=== PATIENT | male | born 1940 | race Caucasian/White ===

== ENCOUNTER 2017-07-29 12:25 | Observation (INO) ==
[2017-07-29] MEDS ORDERED: Ondansetron 4 MG/2 ML VIAL IVP PRN (12:43)
[2017-07-29] MEDS ORDERED: Lidocaine -MPF 1% 5 ML AMPUL INFILT ONE (12:51)
[2017-07-29] MEDS ORDERED: *HR* Morphine Soln 10 MG/5 ML UDC PO PRN (12:54)
[2017-07-29] MEDS ORDERED: *HR* LORazepam 2 MG/ML VIAL IVP PRN (12:57)
--- NOTE | 2017-07-29 13:04 | General Surg History&Physical ---
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 All questions were answered. Peg tube recently replaced and patient is currently leaking from gastrocutaneous fistula from previous site as well as current peg tube site. Strict NPO Place peg tube to reese bag continuous PICC line placement TPN therapy- arson investigator consulted for start and management (discharge planning) Total fluid rate will be TPN goal Social service consult- will need PICC and TPN until gastrocutaneous fistula closed down (plan for return to [place] with TPN in the upcoming days) Meds converted to IV and SQ Supportive care Check labs- CBC, CMP, Mg, Phos, Prealbumin (2) Severe protein-calorie malnutrition Current Visit: Yes Status: Acute The assessment and plan as outlined above was discussed with the patient and/or family members who expressed understanding and agreement. All questions were answered. Peg tube recently replaced and patient is currently leaking from gastrocutaneous fistula from previous site as well as current peg tube site. 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 All questions were answered. History of Present Illness Chief complaint: Gastrocutaneous fistula HPI: Mr. Phelps is a 77 year old male with a hx significant for head and neck cancer. He is NPO due to his previous surgeries and radiation treatments. He has a peg tube in place. It was replaced a few weeks ago by Dr. Grijalva due to persistent leaking. The patient returns to the office from [facility] ([place]) with complaints of persistent leaking from his previous peg tube site as well as his current peg tube site. It is not safe to perform further endoscopy at this time due to severe tracheal stenosis and changes from radiation therapy. We will plan to admit the patient to the hospital for further management with a more conservative approach. Please see Dr. Grijalva's History and Physical in [facility] for a complete evaluation for this patient. A Copy has been placed in the patient chart at the nurses station as well as in the patient's medical record folder. Past Med Surg Social Fam HX - Past Medical History Source: old records reviewed Medical history: arthritis, atrial fibrillation, cancer (head and neck cancer), COPD, coronary artery disease, hypertension, myocardial infarction, other Psychiatric history: no psych history - Past Surgical History Surgical History: orthopedic, other (left hip), pacemaker/AICD, other (Peg tube placement and subsequent replacement (07/03/17); head/neck surgery for cancer and subsequent radiation therapy) - Social History Smoking Status: Former smoker Smokeless Tobacco Status: No Alcohol use: heavy, recent Drug use: none Occupational status: disabled Current living situation: [facility] Activity Level: Wheelchair bound Medications and Allergies Aspirin 81 mg GTUBE Q48H 01/03/15 [History] Metoprolol [Lopressor] 12.5 mg GTUBE HS 01/03/15 [History] Levothyroxine [Synthroid] 150 mcg PO DAILY #30 tablet 09/17/16 [Rx] ALPRAZolam [Xanax 0.25 MG Tablet] 0.25 mg GTUBE BID #60 tablet 11/01/16 [Rx] HYDROcodone/Acet 5/325 mg [[place] 5-325 mg] 1 tab GTUBE Q4H PRN #120 tab [Rx] Acetaminophen [Tylenol] 500 mg GTUBE Q4H PRN 07/03/17 [History] HYDROcodone/Acet 5/325 mg [[place] 5-325 mg] 1 tab GTUBE BID 07/03/17 [History] MOM Conc [Milk of Magnesia Conc] 30 ml PO DAILY PRN 07/03/17 [History] Rivaroxaban [Xarelto] 20 mg GTUBE HS 07/03/17 [History] Metoclopramide [Reglan] 10 mg GTUBE Q6H PRN 07/29/17 [History] 3 Allergy/AdvReac Type Severity Reaction Status Date / Time No Known Allergies Allergy Verified 07/29/17 14:29 Review of Systems All systems PM: The remainder of the systems were reviewed and are negative Results - Labs 07/29/17 13:09 07/29/17 13:09 All other labs normal. - Attending Attestation For this encounter, I have reviewed the TAXONOMIST or PA documentation, treatment plan, and medical decision making; and I have had face to face time with this patient. <RudiReillyn T - Last Filed: 07/29/17 16:10> Date of Encounter: 07/29/17 History of Present Illness HPI: Mr. Phelps is a 77 year old male Review of Systems All systems PM: The remainder of the systems were reviewed and are negative General Surgery Exam Initial Vital Signs Temp Pulse Resp BP Pulse Ox 94.6 F L 104 15 139/79 94 07/29/17 12:43 07/29/17 12:43 07/29/17 12:43 07/29/17 12:43 07/29/17 12:43 Results - Labs 07/29/17 13:09 07/29/17 13:09 Abnormal lab results RBC 3.79 M/mcL (4.19-5.50) L 07/29/17 13:09 MCV 104.5 fL (83.0-100.0) H 07/29/17 13:09 MCH 34.0 pg (28.0-33.3) H 07/29/17 13:09 RDW 14.7 % (11.5-14.5) H 07/29/17 13:09 PT 12.4 Seconds (9.4-12.1) H 07/29/17 13:09 BUN 30 mg/dL (8-23) H 07/29/17 13:09 Creatinine 0.63 mg/dL (0.70-1.30) L 07/29/17 13:09 BUN/Creatinine Ratio 48 (6-26) H 07/29/17 13:09 Calculated Osmolality 302 (280-300) H 07/29/17 13:09 Total Bilirubin 1.1 mg/dL (0.3-1.0) H 07/29/17 13:09 Diabetes panel 07/29/17 Range/Units 13:09 Sodium 143 (136-145) mEq/L Potassium 4.4 (3.5-5.1) mEq/L Chloride 105 (98-107) mEq/L Carbon Dioxide 29 (23-29) mEq/L BUN 30 H (8-23) mg/dL Creatinine 0.63 L (0.70-1.30) mg/dL Glucose 89 (70-105) mg/dL Calcium 9.4 (8.6-10.3) mg/dL AST 22 (13-39) Units/L ALT 11 (7-52) Units/L Alkaline Phosphatase 84 (34-104) Units/L Albumin 4.1 (3.5-5.7) g/dL Calcium panel 07/29/17 Range/Units 13:09 Calcium 9.4 (8.6-10.3) mg/dL Phosphorus 3.6 (2.7-4.5) mg/dL Albumin 4.1 (3.5-5.7) g/dL Pituitary panel 07/29/17 Range/Units 13:09 Sodium 143 (136-145) mEq/L Potassium 4.4 (3.5-5.1) mEq/L Chloride 105 (98-107) mEq/L Carbon Dioxide 29 (23-29) mEq/L BUN 30 H (8-23) mg/dL Creatinine 0.63 L (0.70-1.30) mg/dL Glucose 89 (70-105) mg/dL Calcium 9.4 (8.6-10.3) mg/dL Adrenal panel 07/29/17 Range/Units 13:09 Sodium 143 (136-145) mEq/L Potassium 4.4 (3.5-5.1) mEq/L Chloride 105 (98-107) mEq/L Carbon Dioxide 29 (23-29) mEq/L BUN 30 H (8-23) mg/dL Creatinine 0.63 L (0.70-1.30) mg/dL Glucose 89 (70-105) mg/dL Calcium 9.4 (8.6-10.3) mg/dL Total Bilirubin 1.1 H (0.3-1.0) mg/dL AST 22 (13-39) Units/L ALT 11 (7-52) Units/L Alkaline Phosphatase 84 (34-104) Units/L Albumin 4.1 (3.5-5.7) g/dL All other labs normal. - Attending Attestation I have personally performed a face to face evaluation on this patient. I have reviewed and agree with the care plan. History and Exam by me shows: The patient was seen and evaluated in the outpatient clinic setting. We are simply unable to initiate PICC line and TPN as well as gastric drainage has a outpatient. He will be admitted for inpatient evaluation and management. Francois Grijalva MD FACS
[2017-07-29 13:20] LABS: Basophils % 0.3 %; Eosinophils % 0.4 %; Hematocrit 39.6 % (37.5-50.1); Hemoglobin 12.9 g/dL (12.9-16.9); Immature Granulocytes % 0.3 % (0-4); Lymphocytes # 0.6 K/mcL (0.6-4.6); Lymphocytes % 8.6 %; Mean Corpuscular HGB Conc 32.6 g/dL (31.6-35.5); Mean Corpuscular Volume 104.5 fL (83.0-100.0); Mean Platelet Volume 12.2 fL (9.4-12.4); Monocytes # 0.9 K/mcL (0.0-1.3); Monocytes % 12.2 %; Neutrophils # 5.4 K/mcL (1.6-8.9); Platelet Count 185 K/mcL (140-400); Red Blood Count 3.79 M/mcL (4.19-5.50); Red Cell Distribution Width 14.7 % (11.5-14.5); Segmented Neutrophils % 78.2 %
[2017-07-29 13:27] LABS: INR 1.1; Prothrombin Time 12.4 Seconds (9.4-12.1)
[2017-07-29 13:30] LABS: Activated Partial Thrombo Time 32.6 Seconds (26.0-36.0)
[2017-07-29 13:50] LABS: Alanine Aminotransferase 11 Units/L (7-52); Albumin 4.1 g/dL (3.5-5.7); Albumin/Globulin Ratio 1.3 (1.1-2.2); Alkaline Phosphatase 84 Units/L (34-104); Aspartate Amino Transferase 22 Units/L (13-39); BUN/Creatinine Ratio 48 (6-26); Bilirubin,Total 1.1 mg/dL (0.3-1.0); Blood Urea Nitrogen 30 mg/dL (8-23); Calcium 9.4 mg/dL (8.6-10.3); Carbon Dioxide 29 mEq/L (23-29); Chloride 105 mEq/L (98-107); Globulin 3.1 g/dL (2.4-3.5); Glucose 89 mg/dL (70-105); Magnesium 1.9 mg/dL (1.6-2.6); Osmolality,Calculated 302 (280-300); Phosphorous 3.6 mg/dL (2.7-4.5); Potassium 4.4 mEq/L (3.5-5.1); Sodium 143 mEq/L (136-145); Total Protein 7.2 g/dL (6.4-8.9); eGFR For African Americans > 60 (> 60); eGFR For Non-African Americans > 60 (> 60)
[2017-07-29] MEDS ORDERED: D10% in Water 500 ML IVC PRN (14:11)
[2017-07-29] MEDS ORDERED: Clinimix E 5%-15% SOLUTION 2,000 ML with MVI, adult with vitamin K 10 ML IVC SCH (17:00)
[2017-07-29] MEDS: *HR* Metoprolol 5 MG/5 ML VIAL IVP SCH (17:17)
[2017-07-29] MEDS: 0.9 % Sodium Chloride 1,000 ML IVC SCH (17:30)
[2017-07-30] MEDS: *HR* Metoprolol 5 MG/5 ML VIAL IVP SCH ×5 (00:17→23:51)
[2017-07-30] MEDS: OXYCODONE Oral CONC 10 MG/0.5 ML ORAL.SYG SL PRN ×3 (00:34→19:29)
[2017-07-30 04:48] LABS: VBG Ionized Calcium 1.12 mmol/L (1.15-1.35); VBG PH 7.39 pH Units (7.32-7.42)
[2017-07-30 04:53] LABS: BUN/Creatinine Ratio 42 (6-26); Blood Urea Nitrogen 24 mg/dL (8-23); Calcium 8.9 mg/dL (8.6-10.3); Carbon Dioxide 28 mEq/L (23-29); Chloride 107 mEq/L (98-107); Glucose 93 mg/dL (70-105); Osmolality,Calculated 302 (280-300); Phosphorous 3.9 mg/dL (2.7-4.5); Potassium 4.1 mEq/L (3.5-5.1); Sodium 144 mEq/L (136-145); Triglycerides 80 mg/dL (< 150); eGFR For African Americans > 60 (> 60); eGFR For Non-African Americans > 60 (> 60)
--- NOTE | 2017-07-30 07:44 | General Surgery Progress Note ---
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 Patient has already had prior revision of PEG tube. Patient's stoma too small for any future revisions to be performed endoscopically currently. Patient had insertion of PICC line and started on TPN. NPO. Allowing for bowel rest and hopeful for self healing. If not patient will likely need surgical laparoscopy and takedown of the gastrocutaneous fistulas and stapling off the anterior stomach, fci jejunostomy tube placement. Possibly a sidney en y. For now PEG tube to reese bag continue TPN continue supportive care. Likely d/c to ECF for continued bowel rest and TPN after stabilized here. 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 Patient is s/p radiation and surgery for head and neck CA. Subjective Patient reports: no new complaints, afebrile Narrative: Patient laryngectomy and residual stoma. Unable to articulate. Can answer yes or no questions. Patient indicates discomfort around PEG tube site. Objective Vital Signs - Last 8 Hours Temp Pulse Resp BP Pulse Ox 07/30/17 07:09 97.9 F 65 14 113/69 96 07/30/17 04:05 97.8 F 81 17 118/72 93 Intake and Output 07/29/17 07/29/17 07/30/17 15:59 23:59 07:59 Intake Total 0 / 0 0 / 0 0 / 0 Output Total 400 / 400 200 / 200 Balance 0 / 0 -400 / -400 -200 / -200 Intake: Oral 0 / 0 0 / 0 0 / 0 Output: Urine 400 / 400 200 / 200 Other: Weight 61 kg Blood Glucose* 115 118 - General physical appearance no distress, chronically ill - Eyes normal ocular movement - ENT Other (gross deformity of jaw secondary to treatmetn of head and neck CA) - Neck Neck exam: other (s/p larengectomy with narrow stoma present) - Respiratory other (Diffuse Rhonchi and upper respiratory noises. ) - Cardiovascular Cardiovascular exam: Present: RRR, no murmurs/rubs/gallops - Abdomen Abdomen: Present: bowel sounds present, soft, non tender - Integumentary other (some dried brown drainage on dressing around peg tube. ) - Neurologic other (alert) - Labs 07/29/17 13:09 07/30/17 04:00 Diabetes panel 07/29/17 07/30/17 Range/Units 13:09 04:00 Sodium 143 144 (136-145) mEq/L Potassium 4.4 4.1 (3.5-5.1) mEq/L Chloride 105 107 (98-107) mEq/L Carbon Dioxide 29 28 (23-29) mEq/L BUN 30 H 24 H (8-23) mg/dL Creatinine 0.63 L 0.57 L (0.70-1.30) mg/dL Glucose 89 93 (70-105) mg/dL Calcium 9.4 8.9 (8.6-10.3) mg/dL AST 22 (13-39) Units/L ALT 11 (7-52) Units/L Alkaline Phosphatase 84 (34-104) Units/L Albumin 4.1 (3.5-5.7) g/dL Triglycerides 80 (< 150) mg/dL Calcium panel 07/29/17 07/30/17 Range/Units 13: 04:00 Calcium 9.4 8.9 (8.6-10.3) mg/dL Phosphorus 3.6 3.9 (2.7-4.5) mg/dL Albumin 4.1 (3.5-5.7) g/dL Pituitary panel 07/29/17 07/30/17 Range/Units 13:09 04:00 Sodium 143 144 (136-145) mEq/L Potassium 4.4 4.1 (3.5-5.1) mEq/L Chloride 105 107 (98-107) mEq/L Carbon Dioxide 29 28 (23-29) mEq/L BUN 30 H 24 H (8-23) mg/dL Creatinine 0.63 L 0.57 L (0.70-1.30) mg/dL Glucose 89 93 (70-105) mg/dL Calcium 9.4 8.9 (8.6-10.3) mg/dL Adrenal panel 07/29/17 07/30/17 Range/Units 13:09 04:00 Sodium 143 144 (136-145) mEq/L Potassium 4.4 4.1 (3.5-5.1) mEq/L Chloride 105 107 (98-107) mEq/L Carbon Dioxide 29 28 (23-29) mEq/L BUN 30 H 24 H (8-23) mg/dL Creatinine 0.63 L 0.57 L (0.70-1.30) mg/dL Glucose 89 93 (70-105) mg/dL Calcium 9.4 8.9 (8.6-10.3) mg/dL Total Bilirubin 1.1 H (0.3-1.0) mg/dL AST 22 (13-39) Units/L ALT 11 (7-52) Units/L Alkaline Phosphatase 84 (34-104) Units/L Albumin 4.1 (3.5-5.7) g/dL Consult Discharge Plan - Plan Referrals: Abdi Soto, DELIVERY MGR [Primary Care Provider] - <Francois Grijalva - Last Filed: 07/31/17 10:46> Date of Encounter: 07/30/17 Objective Vital Signs - Last 8 Hours Temp Pulse Resp BP Pulse Ox 07/31/17 10:09 97.4 F L 81 16 119/69 95 07/31/17 06:38 97.4 F L 87 15 119/74 92 07/31/17 04:15 96.8 F L 83 15 134/78 94 Intake and Output 07/30/17 07/31/17 07/31/17 23:59 07:59 15:59 Intake Total 1062 / 1062 0 / 0 Output Total 0 / 0 275 / 275 450 / 450 Balance 1062 / 1062 -275 / -275 -450 / -450 Intake: IV Fluids 1062 / 1062 Clinimix E 5%-15% SOLUTION 2, 1062 / 1062 000 ML @ 45 mls/hr IVC .Q24H COLEEN with M.v.i. Adult 10 ml Rx# :[id number] Oral 0 / 0 0 / 0 Output: Urine 0 / 0 175 / 175 450 / 450 Gastric Drainage 100 / 100 Other: Meal npo Stool Size Moderate Stool Consistency soft formed Stool Color Brown Weight 62.1 kg Blood Glucose* 117 141 Patient Weight 07/31/17 23:59 Weight 62.1 kg - Labs 07/29/17 13:09 07/31/17 04:03 Diabetes panel 07/31/17 Range/Units 04:03 Sodium 140 (136-145) mEq/L Potassium 3.9 (3.5-5.1) mEq/L Chloride 106 (98-107) mEq/L Carbon Dioxide 26 (23-29) mEq/L BUN 24 H (8-23) mg/dL Creatinine 0.50 L (0.70-1.30) mg/dL Glucose 102 (70-105) mg/dL Calcium 8.7 (8.6-10.3) mg/dL Calcium panel 07/31/17 Range/Units 04:03 Calcium 8.7 (8.6-10.3) mg/dL Phosphorus 4.1 (2.7-4.5) mg/dL Pituitary panel 07/31/17 Range/Units 04:03 Sodium 140 (136-145) mEq/L Potassium 3.9 (3.5-5.1) mEq/L Chloride 106 (98-107) mEq/L Carbon Dioxide 26 (23-29) mEq/L BUN 24 H (8-23) mg/dL Creatinine 0.50 L (0.70-1.30) mg/dL Glucose 102 (70-105) mg/dL Calcium 8.7 (8.6-10.3) mg/dL Adrenal panel 07/31/17 Range/Units 04:03 Sodium 140 (136-145) mEq/L Potassium 3.9 (3.5-5.1) mEq/L Chloride 106 (98-107) mEq/L Carbon Dioxide 26 (23-29) mEq/L BUN 24 H (8-23) mg/dL Creatinine 0.50 L (0.70-1.30) mg/dL Glucose 102 (70-105) mg/dL Calcium 8.7 (8.6-10.3) mg/dL - Attending Attestation I examined this patient and my medical decision-making was reviewed with the Resident Physician. I agree with the documented findings, disposition and treatment plan as described except to the extent set forth below. The patient is seen and evaluated on morning rounds with the resident. He has a PICC line in place and this started on TPN. We will begin work on placement. I have recommended gastric drainage via the PEG tube to assist with healing. I will make an evaluation in 2 weeks to see if surgery will be necessary for a more permanent feeding tube solution. Francois Grijalva MD FACS
[2017-07-30] MEDS: 0.9 % Sodium Chloride 1,000 ML IVC SCH (07:56)
[2017-07-30] MEDS: Pantoprazole 40 MG VIAL IVP SCH (08:07)
[2017-07-30] MEDS: Levothyroxine Sodium 100 MCG VIAL IVP SCH (08:07)
--- NOTE | 2017-07-30 10:39 | Event Note ---
Date of Encounter: 07/30/17 Time of Encounter: 10:39 - Cardiology Event Note Cardiology notified patient is in-patient due to g-tube malfunction. He is scheduled 07/31/17 in the out-pt setting for ICD generator change. We will keep him on the schedule to proceed as planned. Please call with questions.
[2017-07-30] MEDS ORDERED: Clinimix E 5%-15% SOLUTION 2,000 ML with MVI, adult with vitamin K 10 ML IVC SCH (17:00)
--- NOTE | 2017-07-30 17:27 | ENT - Consult Note ---
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 No need or recommendation for revision of this. He is breathing well through this; as well if this is mechanically occluded with my thumb indicating larynx and upper airway is intact. 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 This area is very scarred and firm but no evidence of malignancy is seen. 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 or should be referred to [facility]. There is no evidence of infection here and I am not sure if patient would do well with a surgical procedure in this area and may benefit at this time only from local care with cleaning hygiene locally; he does have significant xerostomia and mucositis and would recommend warm humidified air by Ventimask and oral hygiene with glycerin swabs and hydrogen peroxide swabs to clean the oral cavity and pharynx of mucus which can be done by nursing staff. History of Present Illness Consult date: 07/30/17 Reason for ENT Consult: other (Patient with history of head and neck cancer who has permanent tracheostomy tube stoma needs evaluation) History of present illness: 77-year-old male who was admitted for leakage of PEG site. Presently nothing by mouth and receiving TPN for nutritional support past history of head and neck cancer unknown type or location or treatment [facility] records available. He has had a permanent tracheostomy stoma and PEG tube placement; for many years. He is not having any difficulties with breathing. But has difficulty swallowing and therefore the need for the PEG. Records are obtained from [facility] dating back to 2011 were relative to a right hip surgical procedure and at that time he did have trach and PEG also. I do not have records of his head and neck cancer in do not know who is had neck cancer surgeon/oncologist was. If that information were available it would be helpful Past Med Surg Social Fam HX - Past Medical History Medical history: arthritis, atrial fibrillation, cancer (head and neck cancer), COPD, coronary artery disease, hypertension, myocardial infarction, other Psychiatric history: no psych history - Past Surgical History Surgical History: orthopedic, other (left hip), pacemaker/AICD, other (Peg tube placement and subsequent replacement (07/03/17); head/neck surgery for cancer and subsequent radiation therapy) - Social History Smoking Status: Former smoker Smokeless Tobacco Status: No Alcohol use: heavy, recent Drug use: none Medications and Allergies Aspirin 81 mg GTUBE Q48H 01/03/15 [History] Metoprolol [Lopressor] 12.5 mg GTUBE HS 01/03/15 [History] Levothyroxine [Synthroid] 150 mcg PO DAILY #30 tablet 09/17/16 [Rx] ALPRAZolam [Xanax 0.25 MG Tablet] 0.25 mg GTUBE BID #60 tablet 11/01/16 [Rx] HYDROcodone/Acet 5/325 mg [[place] 5-325 mg] 1 tab GTUBE Q4H PRN #120 tab [Rx] Acetaminophen [Tylenol] 500 mg GTUBE Q4H PRN 07/03/17 [History] HYDROcodone/Acet 5/325 mg [[place] 5-325 mg] 1 tab GTUBE BID 07/03/17 [History] MOM Conc [Milk of Magnesia Conc] 30 ml PO DAILY PRN 07/03/17 [History] Rivaroxaban [Xarelto] 20 mg GTUBE HS 07/03/17 [History] Metoclopramide [Reglan] 10 mg GTUBE Q6H PRN 07/29/17 [History] 3 Allergy/AdvReac Type Severity Reaction Status Date / Time No Known Allergies Allergy Verified 07/29/17 14:29 ENT Exam Initial Vital Signs Temp Pulse Resp BP Pulse Ox 94.6 F L 104 15 139/79 94 07/29/17 12:43 07/29/17 12:43 07/29/17 12:43 07/29/17 12:43 07/29/17 12:43 - General physical appearance cachectic, other (Communication not incomprehensible patient does not appear to be in any acute pain. He is able to breathe with the 1 cm tracheostomy stoma occluded and unoccluded) - ENT normal pinna, normal nares, dry mucosa, Other (Patient has excessively dry oral cavity and pharynx with mucus dry plaques scattered but not obstructing the oral cavity pharynx area. 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 The larynx does still appear to be intact externally, there is rockhard left lateral neck from prior surgery and radiation and well-healed neck dissection scar) - Respiratory normal expansion, normal respiratory effort Exam Initial Vital Signs Temp Pulse Resp BP Pulse Ox 94.6 F L 104 15 139/79 94 07/29/17 12:43 07/29/17 12:43 07/29/17 12:43 07/29/17 12:43 07/29/17 12:43 Results - Labs 07/29/17 13:09 07/30/17 04:00 Abnormal lab results RBC 3.79 M/mcL (4.19-5.50) L 07/29/17 13:09 MCV 104.5 fL (83.0-100.0) H 07/29/17 13:09 MCH 34.0 pg (28.0-33.3) H 07/29/17 13:09 RDW 14.7 % (11.5-14.5) H 07/29/17 13:09 PT 12.4 Seconds (9.4-12.1) H 07/29/17 13:09 BUN 24 mg/dL (8-23) H 07/30/17 04:00 Creatinine 0.57 mg/dL (0.70-1.30) L 07/30/17 04:00 BUN/Creatinine Ratio 42 (6-26) H 07/30/17 04:00 POC Glucose 123 mg/dL (70-99) H 07/30/17 16:34 Calculated Osmolality 302 (280-300) H 07/30/17 04:00 Venous Ioniz Calcium 1.12 mmol/L (1.15-1.35) L 07/30/17 04:42 Total Bilirubin 1.1 mg/dL (0.3-1.0) H 07/29/17 13:09 Diabetes panel 07/30/17 Range/Units 04:00 Sodium 144 (136-145) mEq/L Potassium 4.1 (3.5-5.1) mEq/L Chloride 107 (98-107) mEq/L Carbon Dioxide 28 (23-29) mEq/L BUN 24 H (8-23) mg/dL Creatinine 0.57 L (0.70-1.30) mg/dL Glucose 93 (70-105) mg/dL Calcium 8.9 (8.6-10.3) mg/dL Triglycerides 80 (< 150) mg/dL Calcium panel 07/30/17 Range/Units 04:00 Calcium 8.9 (8.6-10.3) mg/dL Phosphorus 3.9 (2.7-4.5) mg/dL Pituitary panel 07/30/17 Range/Units 04:00 Sodium 144 (136-145) mEq/L Potassium 4.1 (3.5-5.1) mEq/L Chloride 107 (98-107) mEq/L Carbon Dioxide 28 (23-29) mEq/L BUN 24 H (8-23) mg/dL Creatinine 0.57 L (0.70-1.30) mg/dL Glucose 93 (70-105) mg/dL Calcium 8.9 (8.6-10.3) mg/dL Adrenal panel 07/30/17 Range/Units 04:00 Sodium 144 (136-145) mEq/L Potassium 4.1 (3.5-5.1) mEq/L Chloride 107 (98-107) mEq/L Carbon Dioxide 28 (23-29) mEq/L BUN 24 H (8-23) mg/dL Creatinine 0.57 L (0.70-1.30) mg/dL Glucose 93 (70-105) mg/dL Calcium 8.9 (8.6-10.3) mg/dL All other labs normal. Consult Discharge Plan - Plan Referrals: Abdi Soto, ARTISTIC ASSOCIATE [Primary Care Provider] -
[2017-07-31 04:46] LABS: BUN/Creatinine Ratio 48 (6-26); Blood Urea Nitrogen 24 mg/dL (8-23); Calcium 8.7 mg/dL (8.6-10.3); Carbon Dioxide 26 mEq/L (23-29); Chloride 106 mEq/L (98-107); Glucose 102 mg/dL (70-105); Magnesium 1.7 mg/dL (1.6-2.6); Osmolality,Calculated 294 (280-300); Phosphorous 4.1 mg/dL (2.7-4.5); Potassium 3.9 mEq/L (3.5-5.1); Sodium 140 mEq/L (136-145); eGFR For African Americans > 60 (> 60); eGFR For Non-African Americans > 60 (> 60)
[2017-07-31] MEDS: 0.9 % Sodium Chloride 1,000 ML IVC SCH ×2 (05:05→23:22)
[2017-07-31] MEDS: *HR* Metoprolol 5 MG/5 ML VIAL IVP SCH ×4 (05:11→23:21)
[2017-07-31] MEDS: OXYCODONE Oral CONC 10 MG/0.5 ML ORAL.SYG SL PRN ×3 (05:24→17:24)
--- NOTE | 2017-07-31 10:06 | General Surgery Progress Note ---
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 Patient has already had prior revision of PEG tube. Patient's stoma too small for any future revisions to be performed endoscopically currently. Patient had insertion of PICC line and started on TPN. NPO. Allowing for bowel rest and hopeful for self healing. If not patient will likely need surgical laparoscopy and takedown of the gastrocutaneous fistulas and stapling off the anterior stomach, jail jejunostomy tube placement. Possibly a sidney en y. For now PEG tube to reese bag continue TPN continue supportive care. Likely d/c to ECF for continued bowel rest and TPN after stabilized here. 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 Patient is s/p radiation and surgery for head and neck CA. ENT recommends referral back to [facility] for management of his exposed hardware from prior reconstruction sx. Also recommended local care with cleaning hygiene locally; he does have significant xerostomia and mucositis and would recommend warm humidified air by Ventimask and oral hygiene with glycerin swabs and hydrogen peroxide swabs to clean the oral cavity and pharynx of mucus which can be done by nursing staff. Subjective Patient reports: no new complaints, afebrile Narrative: Patient reports still having some discomfort around Peg tub site. Peg tube placed to reese bag little to no drainage. Some scant drainage on dressing around peg tube and former peg site. Objective Vital Signs - Last 8 Hours Temp Pulse Resp BP Pulse Ox 07/31/17 06:38 97.4 F L 87 15 119/74 92 07/31/17 04:15 96.8 F L 83 15 134/78 94 Intake and Output 07/30/17 07/31/17 07/31/17 23:59 07:59 15:59 Intake Total 1062 / 1062 0 / 0 Output Total 0 / 0 275 / 275 450 / 450 Balance 1062 / 1062 -275 / -275 -450 / -450 Intake: IV Fluids 1062 / 1062 Clinimix E 5%-15% SOLUTION 2, 1061 000 ML @ 45 mls/hr IVC .Q24H COLEEN with M.v.i. Adult 10 ml Rx# :[id number] Oral 0 / 0 0 / 0 Output: Urine 0 / 0 175 / 175 450 / 450 Gastric Drainage 100 / 100 Other: Meal npo Stool Size Moderate Stool Consistency soft formed Stool Color Brown Weight 62.1 kg Blood Glucose* 117 141 Patient Weight 07/31/17 23:59 Weight 62.1 kg - General physical appearance no distress, cachectic, chronically ill - Eyes normal ocular movement - ENT Other (chronic changes related to surgery and radiation to head and neck) - Neck Neck exam: other (trache stoma in place. ) - Respiratory normal expansion, normal respiratory effort, other (coarse breath soudns throughout) - Cardiovascular Cardiovascular exam: Present: RRR, no murmurs/rubs/gallops - Abdomen Abdomen: Present: bowel sounds present, soft, non tender - Integumentary other (mild drianing from former peg site and surrounding current peg. No pus or signs of infection) - Musculoskeletal normal posture - Labs 07/29/17 13:09 07/31/17 04:03 Diabetes panel 07/31/17 Range/Units 04:03 Sodium 140 (136-145) mEq/L Potassium 3.9 (3.5-5.1) mEq/L Chloride 106 (98-107) mEq/L Carbon Dioxide 26 (23-29) mEq/L BUN 24 H (8-23) mg/dL Creatinine 0.50 L (0.70-1.30) mg/dL Glucose 102 (70-105) mg/dL Calcium 8.7 (8.6-10.3) mg/dL Calcium panel 07/31/17 Range/Units 04:03 Calcium 8.7 (8.6-10.3) mg/dL Phosphorus 4.1 (2.7-4.5) mg/dL Pituitary panel 07/31/17 Range/Units 04:03 Sodium 140 (136-145) mEq/L Potassium 3.9 (3.5-5.1) mEq/L Chloride 106 (98-107) mEq/L Carbon Dioxide 26 (23-29) mEq/L BUN 24 H (8-23) mg/dL Creatinine 0.50 L (0.70-1.30) mg/dL Glucose 102 (70-105) mg/dL Calcium 8.7 (8.6-10.3) mg/dL Adrenal panel 07/31/17 Range/Units 04:03 Sodium 140 (136-145) mEq/L Potassium 3.9 (3.5-5.1) mEq/L Chloride 106 (98-107) mEq/L Carbon Dioxide 26 (23-29) mEq/L BUN 24 H (8-23) mg/dL Creatinine 0.50 L (0.70-1.30) mg/dL Glucose 102 (70-105) mg/dL Calcium 8.7 (8.6-10.3) mg/dL Consult Discharge Plan - Plan Referrals: Abdi Soto, TRAFFIC SIGNAL REPAIRER [Primary Care Provider] - <Francois Grijalva - Last Filed: 07/31/17 11:05> Date of Encounter: 07/31/17 Objective Vital Signs - Last 8 Hours Temp Pulse Resp BP Pulse Ox 07/31/17 10:09 97.4 F L 81 16 119/69 95 07/31/17 06:38 97.4 F L 87 15 119/74 92 07/31/17 04:15 96.8 F L 83 15 134/78 94 Intake and Output 07/30/17 07/31/17 07/31/17 23:59 07:59 15:59 Intake Total 1062 / 1062 0 / 0 Output Total 0 / 0 275 / 275 450 / 450 Balance 1062 / 1062 -275 / -275 -450 / -450 Intake: IV Fluids 1062 / 1062 Clinimix E 5%-15% SOLUTION 2, 1062 / 1062 000 ML @ 45 mls/hr IVC .Q24H COLEEN with M.v.i. Adult 10 ml Rx# :[id number] Oral 0 / 0 0 / 0 Output: Urine 0 / 0 175 / 175 450 / 450 Gastric Drainage 100 / 100 Other: Meal npo Stool Size Moderate Stool Consistency soft formed Stool Color Brown Weight 62.1 kg Blood Glucose* 117 141 138 Patient Weight 07/31/17 23:59 Weight 62.1 kg - Labs 07/29/17 13:09 07/31/17 04:03 Diabetes panel 07/31/17 Range/Units 04:03 Sodium 140 (136-145) mEq/L Potassium 3.9 (3.5-5.1) mEq/L Chloride 106 (98-107) mEq/L Carbon Dioxide 26 (23-29) mEq/L BUN 24 H (8-23) mg/dL Creatinine 0.50 L (0.70-1.30) mg/dL Glucose 102 (70-105) mg/dL Calcium 8.7 (8.6-10.3) mg/dL Calcium panel 07/31/17 Range/Units 04:03 Calcium 8.7 (8.6-10.3) mg/dL Phosphorus 4.1 (2.7-4.5) mg/dL Pituitary panel 07/31/17 Range/Units 04:03 Sodium 140 (136-145) mEq/L Potassium 3.9 (3.5-5.1) mEq/L Chloride 106 (98-107) mEq/L Carbon Dioxide 26 (23-29) mEq/L BUN 24 H (8-23) mg/dL Creatinine 0.50 L (0.70-1.30) mg/dL Glucose 102 (70-105) mg/dL Calcium 8.7 (8.6-10.3) mg/dL Adrenal panel 07/31/17 Range/Units 04:03 Sodium 140 (136-145) mEq/L Potassium 3.9 (3.5-5.1) mEq/L Chloride 106 (98-107) mEq/L Carbon Dioxide 26 (23-29) mEq/L BUN 24 H (8-23) mg/dL Creatinine 0.50 L (0.70-1.30) mg/dL Glucose 102 (70-105) mg/dL Calcium 8.7 (8.6-10.3) mg/dL - Attending Attestation I examined this patient and my medical decision-making was reviewed with the Resident Physician. I agree with the documented findings, disposition and treatment plan as described except to the extent set forth below. The patient is seen and evaluated on morning rounds with resident. He is resting comfortably and not in any pain. Drainage around his PEG tube has significantly decreased. We will continue TPN for 2 weeks try and get this area to heal. If not we will consider operative options for long-term feeding tube placement. Francois Grijalva MD FACS
[2017-07-31] MEDS: Levothyroxine Sodium 100 MCG VIAL IVP SCH (10:46)
[2017-07-31] MEDS: Pantoprazole 40 MG VIAL IVP SCH (10:46)
[2017-07-31] MEDS ORDERED: 0.9 % Sodium Chloride 1,000 ML ONE (13:56)
--- NOTE | 2017-07-31 14:07 | Pre-Sedation Evaluation ---
Pre-sedation evaluation - Pre-sedation checklist Date of procedure: 07/31/17 Recent Vitals: Last Vital Signs Temp 97.4 F L 07/31/17 10:09 Pulse 81 07/31/17 10:09 Resp 16 07/31/17 10:09 BP 119/69 07/31/17 10:09 Pulse Ox 95 07/31/17 10:09 H&P (including ROS) documented in medical record: Yes Previous reaction to sedatives/anesthetics: No Dietary Status: NPO after Midnight Airway Assessment: Patient can open mouth completely, TMJ function normal, Micrognathia (under-bite, receding chin) absent Dentition: poor dentition Possible difficult airway: No ASA Classification *see protocol: CLASS II-Mild systemic disease Plan of Care: Pt appropriate candidate for procedure/moderate/conscious sedation , Risks/benefits of procedure/sedation discussed w/ patient/family
[2017-07-31] MEDS ORDERED: Clinimix E 5%-20% SOLUTION 2,000 ML with MVI, adult with vitamin K 10 ML IVC SCH (17:00)
[2017-07-31] MEDS: *HR* Enoxaparin 60 MG/0.6 ML SYRINGE SQ SCH (19:03)
[2017-08-01] MEDS: OXYCODONE Oral CONC 10 MG/0.5 ML ORAL.SYG SL PRN ×2 (02:15→10:30)
[2017-08-01 05:04] LABS: BUN/Creatinine Ratio 73 (6-26); Blood Urea Nitrogen 33 mg/dL (8-23); Calcium 8.9 mg/dL (8.6-10.3); Carbon Dioxide 26 mEq/L (23-29); Chloride 105 mEq/L (98-107); Glucose 68 mg/dL (70-105); Magnesium 1.8 mg/dL (1.6-2.6); Osmolality,Calculated 290 (280-300); Phosphorous 4.1 mg/dL (2.7-4.5); Potassium 4.5 mEq/L (3.5-5.1); Sodium 137 mEq/L (136-145); eGFR For African Americans > 60 (> 60); eGFR For Non-African Americans > 60 (> 60)
[2017-08-01] MEDS: *HR* Metoprolol 5 MG/5 ML VIAL IVP SCH ×2 (05:55→11:57)
[2017-08-01] MEDS: *HR* Enoxaparin 60 MG/0.6 ML SYRINGE SQ SCH (05:55)
--- NOTE | 2017-08-01 09:05 | Discharge Summary ---
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 Phelps is a 77 year old male c PMHx of arthritis, atrial fibrillation, cancer (head and neck cancer), COPD, coronary artery disease, hypertension, myocardial infarction, pacemaker/AICD, other (Peg tube placement and subsequent replacement (07/03/17); head/neck surgery for cancer and subsequent radiation therapy) who reported to [facility] for leaking around Peg tube site and former PEG tube site. Patient started on TPN and increased to goal. Patient to be on complete bowel rest with PEG to gravity while PEG heals. Patient to be on IV or SL meds until then. Patient discharged back to SNF for contiuned bowel rest and TPN. - Time Spent with Patient Total time spent providing and/or coordinating discharge services: Greater than 30 minutes - Discharge Medications Prescriptions: Metoprolol [Lopressor] 2.5 mg IVP Q6HR #60 vial Ondansetron [Zofran] 4 mg IVP Q6HR PRN #30 vial PRN Reason: Nausea And Vomiting Enoxaparin [Lovenox] 60 mg SQ Q12HR #60 syringe Levothyroxine Sodium [Synthroid] 75 mcg IVP DAILY #30 vial LORazepam [Ativan] 0.5 mg IVP BID PRN 20 Days #10 vial PRN Reason: Anxiety OXYCODONE Oral CONC [Oxycodone Oral Conc] 5 mg SL Q4H PRN 7 Days #21 oral.syg PRN Reason: moderate to severe pain Pantoprazole [Protonix] 40 mg IVP DAILY #30 vial Home Medications: Enoxaparin [Lovenox] 60 mg SQ Q12HR #60 syringe 08/01/17 [Rx] LORazepam [Ativan] 0.5 mg IVP BID PRN 20 Days #10 vial 08/01/17 [Rx] Levothyroxine Sodium [Synthroid] 75 mcg IVP DAILY #30 vial 08/01/17 [Rx] Metoprolol [Lopressor] 2.5 mg IVP Q6HR #60 vial 08/01/17 [Rx] OXYCODONE Oral CONC [Oxycodone Oral Conc] 5 mg SL Q4H PRN 7 Days #21 oral.syg [Rx] Ondansetron [Zofran] 4 mg IVP Q6HR PRN #30 vial 08/01/17 [Rx] Pantoprazole [Protonix] 40 mg IVP DAILY #30 vial 08/01/17 [Rx] Allergies/Adverse Reactions: 3 Allergy/AdvReac Type Severity Reaction Status Date / Time No Known Allergies Allergy Verified 07/29/17 14:29 Date of admission: 07/29/17 12:32 Primary care physician: Abdi Soto CNP Consults: 07/29/17 12:43 Consult to Customer Sales Advisor [CONS] Routine Reason for SW Consult: Patient is a fdc resident at [facility] and will return with PICC and TPN in the upcoming days 07/29/17 12:51 Consult to Invasive Line Access Team [CONS] Routine Reason for Consult: Picc Line Insertion Line Type: PICC Time Notified: 12:51 Call Completed: Yes consult to educational resource coordinator [Consult to Nutrition] [CONS] Stat Comment: Total fluid rate will be TPN goal Consulting Provider: NUTRITION Reason for Dietary Consult: TPN Start and Manage 07/29/17 14:49 Consult to Invasive Line Access Team [CONS] Routine Reason for Consult: Picc Line Insertion for TPN Line Type: PICC 07/30/17 07:21 Consult to ENT [CONS] Routine Consulting Provider: E[facility] [place] Reason for Consult: Patient with Hx of head and neck CA. Question of need of larengectomy stoma revision. Time Notified: 07:33 Call Completed: Yes Discharging clinician: Berhane Dominguez Anticipated date of discharge: 08/01/17 Labs on day of discharge: Labs from last 24 hours 08/01/17 08/01/17 08/01/17 06:54 05:31 04:00 Sodium 137 Potassium 4.5 Chloride 105 Carbon Dioxide 26 BUN 33 H Creatinine 0.45 L Est GFR ( Amer) > 60 Est GFR (Non-Af Amer) > 60 BUN/Creatinine Ratio 73 H Glucose 68 L POC Glucose 100 H 132 H Calculated Osmolality 290 Calcium 8.9 Phosphorus 4.1 Magnesium 1.8 08/01/17 07/31/17 07/31/17 03:59 23:56 19:47 Sodium Potassium Chloride Carbon Dioxide BUN Creatinine Est GFR ( Amer) Est GFR (Non-Af Amer) BUN/Creatinine Ratio Glucose POC Glucose 110 H 127 H 115 H Calculated Osmolality Calcium Phosphorus Magnesium 07/31/17 07/31/17 16:25 11:02 Sodium Potassium Chloride Carbon Dioxide BUN Creatinine Est GFR ( Amer) Est GFR (Non-Af Amer) BUN/Creatinine Ratio Glucose POC Glucose 137 H 138 H Calculated Osmolality Calcium Phosphorus Magnesium - Impressions ITS Impressions Chest X-Ray 07/29/17 14:31 IMPRESSION: Right PICC line terminates at the distal SVC. Chronic findings in the lungs are noted. Blunting of the costophrenic angles is present, which may represent pleural thickening versus small effusions. D/ / Andres Pacheco / Andres Pacheco Interpreting Provider: Andres Pacheco - Patient Status Disposition: Transfer SNF Condition: Fair Overall status at discharge: patient is progressing back to baseline - Discharge Instructions Follow Up With: Abdi Soto RAILWAY STATION MANAGER [Primary Care Provider] - 08/08/17 8:30 am Additional Instructions: Wound Care: Cleanse with soap and water and pat dry daily, apply Maxorb AG to open wound to the right of peg tube and then apply split 4X4 gauze daily Patient is to be NPO and nothing through PEG tube, completebowel rest until PEG site heals. Place PEG tube to gravity. Follow TPN instructions per nutrition's orders. Patient needs BMP, Mg, Phos checked twice a week and Triglycerides checked once a week. - Diet and Activity Activity: resume usual activities as tolerated Diet: other (Keep patient NPO, bowel rest nothing through PEG tube either. Keep PEG to [place].) <Francois Grijalva T - Last Filed: 08/01/17 12:34> Orders not resulted at time of discharge: Pending orders 07/30/17 11:17 CL Insert ICD [CL] Routine Date of Encounter: 08/01/17 General Surgery Exam Initial Vital Signs Temp Pulse Resp BP Pulse Ox 94.6 F L 104 15 139/79 94 07/29/17 12:43 07/29/17 12:43 07/29/17 12:43 07/29/17 12:43 07/29/17 12:43 - Hospital Course Hospital course: Mr. Phelps is a 77 year old male - Time Spent with Patient Total time spent providing and/or coordinating discharge services: Date of admission: 07/29/17 12:32 Primary care physician: Abdi Soto CNP Consults: 07/29/17 12:43 Consult to Customer Sales Advisor [CONS] Routine Reason for SW Consult: Patient is a fdc resident at [facility] and will return with PICC and TPN in the upcoming days 07/29/17 12:51 Consult to Invasive Line Access Team [CONS] Routine Reason for Consult: Picc Line Insertion Line Type: PICC Time Notified: 12:51 Call Completed: Yes consult to educational resource coordinator [Consult to Nutrition] [CONS] Stat Comment: Total fluid rate will be TPN goal Consulting Provider: NUTRITION Reason for Dietary Consult: TPN Start and Manage 07/29/17 14:49 Consult to Invasive Line Access Team [CONS] Routine Reason for Consult: Picc Line Insertion for TPN Line Type: PICC 07/30/17 07:21 Consult to ENT [CONS] Routine Consulting Provider: ENT [place] Reason for Consult: Patient with Hx of head and neck CA. Question of need of larengectomy stoma revision. Time Notified: 07:33 Call Completed: Yes Labs on day of discharge: Labs from last 24 hours 08/01/17 08/01/17 08/01/17 11:26 06:54 05:31 Sodium Potassium Chloride Carbon Dioxide BUN Creatinine Est GFR ( Amer) Est GFR (Non-Af Amer) BUN/Creatinine Ratio Glucose POC Glucose 103 H 100 H 132 H Calculated Osmolality Calcium Phosphorus Magnesium 08/01/17 08/01/17 07/31/17 04:00 03:59 23:56 Sodium 137 Potassium 4.5 Chloride 105 Carbon Dioxide 26 BUN 33 H Creatinine 0.45 L Est GFR ( Amer) > 60 Est GFR (Non-Af Amer) > 60 BUN/Creatinine Ratio 73 H Glucose 68 L POC Glucose 110 H 127 H Calculated Osmolality 290 Calcium 8.9 Phosphorus 4.1 Magnesium 1.8 07/31/17 07/31/17 19:47 16:25 Sodium Potassium Chloride Carbon Dioxide BUN Creatinine Est GFR ( Amer) Est GFR (Non-Af Amer) BUN/Creatinine Ratio Glucose POC Glucose 115 H 137 H Calculated Osmolality Calcium Phosphorus Magnesium - Impressions ITS Impressions Chest X-Ray 07/29/17 14:31 IMPRESSION: Right PICC line terminates at the distal SVC. Chronic findings in the lungs are noted. Blunting of the costophrenic angles is present, which may represent pleural thickening versus small effusions. D/ / Andres Pacheco / Andres Pacheco Interpreting Provider: Andres Pacheco - Attending Attestation I examined this patient and my medical decision-making was reviewed with the Resident Physician. I agree with the documented findings, disposition and treatment plan as described except to the extent set forth below. The patient is seen and evaluated on morning rounds with the resident. He is doing very well on TPN. He should be ready for discharge later today. I will see him back in 2 weeks to see if we can initiate healing on his abdominal wall. Francois Grijalva MD FACS
--- NOTE | 2017-08-01 09:08 | Physician Discharge Referral ---
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 Priority: Primary Status: Acute (2) Severe protein-calorie malnutrition Priority: Secondary Status: Acute (3) Tracheal stenosis Priority: Secondary Status: Chronic Prognosis: Fair Aware of Diagnosis: Patient Aware of Prognosis: Patient - Transfer Medications Prescriptions: Metoprolol [Lopressor] 2.5 mg IVP Q6HR #60 vial Ondansetron [Zofran] 4 mg IVP Q6HR PRN #30 vial PRN Reason: Nausea And Vomiting Enoxaparin [Lovenox] 60 mg SQ Q12HR #60 syringe Levothyroxine Sodium [Synthroid] 75 mcg IVP DAILY #30 vial LORazepam [Ativan] 0.5 mg IVP BID PRN 20 Days #10 vial PRN Reason: Anxiety OXYCODONE Oral CONC [Oxycodone Oral Conc] 5 mg SL Q4H PRN 7 Days #21 oral.syg PRN Reason: moderate to severe pain Pantoprazole [Protonix] 40 mg IVP DAILY #30 vial Home Medications: Enoxaparin [Lovenox] 60 mg SQ Q12HR #60 syringe 08/01/17 [Rx] LORazepam [Ativan] 0.5 mg IVP BID PRN 20 Days #10 vial 08/01/17 [Rx] Levothyroxine Sodium [Synthroid] 75 mcg IVP DAILY #30 vial 08/01/17 [Rx] Metoprolol [Lopressor] 2.5 mg IVP Q6HR #60 vial 08/01/17 [Rx] OXYCODONE Oral CONC [Oxycodone Oral Conc] 5 mg SL Q4H PRN 7 Days #21 oral.syg [Rx] Ondansetron [Zofran] 4 mg IVP Q6HR PRN #30 vial 08/01/17 [Rx] Pantoprazole [Protonix] 40 mg IVP DAILY #30 vial 08/01/17 [Rx] Allergies/Adverse Reactions: 3 Allergy/AdvReac Type Severity Reaction Status Date / Time No Known Allergies Allergy Verified 07/29/17 14:29 - Respiratory Orders Smoking Cessation: Smoking cessation has been advised. For more information, call the [employer] Tobacco Quit Line at 9-534-PPIO-NOW. - Lab Orders Lab Orders: Other (include drug levels w/frequency) (BMP, Mg, Phos. Checked twice a week. Triglyceride levels checked once a week.) - Ancillary Orders May use pressure relief devices daily prn, May consult with Dentist, Steam Press Operator, Projection Technician PRN - Advance Directives Code Status: Full Code - Treatments Skin tear care topically daily PRN per policy - Diet Orders Tube Feedings (type/amount/rate): Patient NPO, on bowel rest. Keep PEG tube to gravity. CERTIFICATION: I certify that the transfer of the above named patient to an Extended Care Facility is necessary for the continuing treatment of the diagnosis listed. The above information is true and accurate reflection of patient's current condition. Confidential - Redisclosure prohibited without a patient's written consent.
[2017-08-01] MEDS: Pantoprazole 40 MG VIAL IVP SCH (10:30)
[2017-08-01] MEDS: Levothyroxine Sodium 100 MCG VIAL IVP SCH (10:30)
[2017-08-01 11:27] VITALS: BP 106/67
== END 2017-08-01 12:55 ==
LOC: 3ANU
PROVIDERS: ADMIT Surgery; ATTEND Surgery

== ENCOUNTER 2017-08-06 16:18 | Inpatient (IN) ==
--- NOTE | 2017-08-06 16:31 | Emergency Department Note ---
Disposition Clinical Impression: Paralysis of right upper extremity, Weakness of right lower extremity, Facial droop CVA (cerebral vascular accident) Qualifiers: CVA mechanism: unspecified Qualified Code(s): I63.9 - Cerebral infarction, unspecified Disposition: Admitted As Inpatient Condition: Fair Referrals: Abdi Soto, SUNDAY [Primary Care Provider] - Forms: ED Satisfaction Letter Time of Disposition: 17:59 Neuro HPI - General Chief Complaint: ED Neuro Symptoms/Deficit Stated Complaint: poss stroke Time Seen by Provider: 08/06/17 16:29 Source: EMS Mode of arrival: EMS Limitations: physical limitation Nursing Notes Reviewed: Yes Vital Signs Reviewed: Yes - History of Present Illness HPI Narrative: Patient is a 77-year-old male with history of head and neck cancer, lung cancer , subsequent trach placement. He is also nonambulatory, is on TPN for failure to thrive; COPD, HTN, A. fib. Currently on Lovenox injections. He presents today from [facility] due to concern for stroke. At 1 PM, patient began having right upper extremity flaccid paralysis, right lower extremity weakness, right-sided facial droop. Patient has difficulty with communicating due to trach placement but is currently denying any other symptoms of chest pain, shortness breath, nausea, vomiting, fevers, diarrhea area and no previous history of stroke. No other numbness, tingling, weakness besides what is stated above. - Related Data Home Medications: Home Medications Medication Instructions Recorded Confirmed LORazepam [Lorazepam Intensol] 0.5 mg PO Q12H PRN 08/06/17 08/06/17 Metoprolol [Lopressor] 2.5 mg IVP Q12H 08/06/17 08/06/17 Morphine Oral CONC [Roxanol] 0.5 ml PO Q1H PRN 08/06/17 08/06/17 Ondansetron ODT [Zofran ODT] 4 mg SL Q6HR 08/06/17 08/06/17 Previous Rx's Medication Instructions Recorded Enoxaparin [Lovenox] 60 mg SQ Q12HR #60 syringe 08/01/17 Levothyroxine Sodium [Synthroid] 75 mcg IVP DAILY #30 vial 08/01/17 Pantoprazole [Protonix] 40 mg IVP DAILY #30 vial 08/01/17 Allergies/Adverse Reactions: Allergies Allergy/AdvReac Type Severity Reaction Status Date / Time No Known Allergies Allergy Verified 07/29/17 14:29 All systems ED: reviewed and negative except as stated. Constitutional: Denies: fever Cardiovascular: Denies: chest pain Respiratory: Denies: cough, dyspnea Gastrointestinal: Denies: abdominal pain, nausea, vomiting, diarrhea Genitourinary: Denies: urgency, dysuria, frequency, hematuria, discharge Neurological: Reports: weakness. Denies: headache, numbness, paresthesias Past Medical History - Past Medical History Attestation: Yes The following information was validated with the patient. Source: patient Medical history: Reports: arthritis, atrial fibrillation, cancer (head and neck cancer), COPD, coronary artery disease, hypertension, myocardial infarction, other Surgical history: Reports: orthopedic, other (left hip), pacemaker/AICD, other ( Peg tube placement and subsequent replacement (07/03/17); head/neck surgery for cancer and subsequent radiation therapy) Psychiatric history: Reports: no psych history - Social History Smoking Status: Former smoker Smokeless Tobacco Status: No Alcohol use: Reports: heavy, recent Drug use: Reports: none Physical Exam - General Limitations: physical limitation (Trach placement, difficulty with vocal communication) General appearance: alert, in no apparent distress, other (cachectic appearing) - Head Head exam: atraumatic, normocephalic, normal inspection - Eye Eye exam: Present: PERRL, EOMI - ENT ENT exam: normal oropharynx, mucous membranes moist, other - Neck Neck exam: Present: full ROM, trachea midline, other - Chest Chest inspection: Present: normal inspection, symmetric chest wall rise - Respiratory Respiratory exam: Present: normal lung sounds bilaterally - Cardiovascular Cardiovascular exam: Present: regular rate, normal rhythm, normal heart sounds - Abdominal Exam Abdominal exam: Present: soft, Non-Tender. Absent: tenderness, distention, guarding, rebound, rigidity - Extremities Exam Extremities exam: Present: normal inspection. Absent: full ROM, tenderness, pedal edema - Neurological Exam Neurological exam: Present: alert, oriented X3, motor sensory deficit (Flaccid paralysis of right upper extremity; weakness of RLE - drops to bed; right sided facial droop, mild ataxia of right side; see NIH for further detail). Absent: CN II-XII intact - Psychiatric Psychiatric exam: Present: normal affect, normal mood - Skin Skin exam: Present: warm, dry, intact, normal color Course Course Narrative: NIH of 10. Stroke alert was called. Head CT without contrast was negative for any acute internal process. [facility] was contacted, I spoke with neurologist, she performed physical exam and then discussed further care. She did not recommend TPA at this time due to the patient being on Lovenox injections. She also did not recommend any thrombectomy due to the patient having baseline nonambulatory status. She recommended that the patient be admitted for for further CVA workup and give rehabilitation. This was discussed with the patient and he expressed understanding. Patient was accepted for admission by hospitalist Sumit Marrufo. 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 Right cavernous ICA microaneurysm. Again, patient was deemed not a candidate for any thrombectomy by [facility]. We will proceed with above plan. Head CT 08/06/17 16:32 IMPRESSION: No acute intracranial abnormality. Findings were discussed with Lew Morris at 4:56 pm on 08/06/2017. D/ / Grover Domínguez MD / Grover Domínguez MD Interpreting Provider: Grover Domínguez MD Chest X-Ray 08/06/17 16:33 IMPRESSION: 1. No focal airspace disease identified. No appreciable change since comparison study. 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 Right cavernous ICA microaneurysm. RECOMMENDATIONS: Surgical consultation. 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 Right cavernous ICA microaneurysm. RECOMMENDATIONS: Surgical consultation. D/ / Momo Vasquez MD / Momo Vasquez MD Interpreting Provider: Momo Vasquez MD Vital Signs Temperature 98.1 F 08/06/17 16:21 Pulse Rate 97 08/06/17 16:21 Respiratory Rate 16 08/06/17 16:21 Blood Pressure 128/86 08/06/17 16:21 O2 Sat by Pulse Oximetry 97 08/06/17 16:21 Temperature 98.1 F 08/06/17 16:34 Pulse Rate 97 08/06/17 17:02 Respiratory Rate 16 08/06/17 17:02 Blood Pressure 114/72 08/06/17 17:02 O2 Sat by Pulse Oximetry 96 08/06/17 17:02 Oxygen Delivery Oxygen Delivery Room Air Neuro Symptoms/Deficit - MDM Narrative Medical decision making narrative: NIH of 10. Stroke alert was called. Head CT without contrast was negative for any acute internal process. [facility] was contacted, I spoke with neurologist, she performed physical exam and then discussed further care. She did not recommend TPA at this time due to the patient being on Lovenox injections. She also did not recommend any thrombectomy due to the patient having baseline nonambulatory status. She recommended that the patient be admitted for for further CVA workup and give rehabilitation. This was discussed with the patient and he expressed understanding. Patient was accepted for admission by hospitalist Sumit Marrufo. 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 Right cavernous ICA microaneurysm. Again, patient was deemed not a candidate for any thrombectomy by [facility]. We will proceed with above plan. - Medical Records Medical records reviewed: Yes I reviewed the patient's medical records. - Lab Data Lab results reviewed: Yes I reviewed the patient's lab results. Result diagrams: 08/06/17 16:55 Lab Results 08/06/17 08/06/17 Range/Units 16:55 16:55 WBC 7.4 (4.3-11.1) K/mcL RBC 3.34 L (4.19-5.50) M/mcL Hgb 11.5 L (12.9-16.9) g/dL Hct 34.3 L (37.5-50.1) % MCV 102.7 H (83.0-100.0) fL MCH 34.4 H (28.0-33.3) pg MCHC 33.5 (31.6-35.5) g/dL RDW 13.6 (11.5-14.5) % Plt Count 147 (140-400) K/mcL MPV 12.1 (9.4-12.4) fL Immature Gran % 0.3 (0-4) % Seg Neutrophils % 72.6 % Lymphocytes % 9.5 % Monocytes % 16.7 % Eosinophils % 0.4 % Basophils % 0.5 % Neutrophils # 5.3 (1.6-8.9) K/mcL Lymphocytes # 0.7 (0.6-4.6) K/mcL Monocytes # 1.2 (0.0-1.3) K/mcL Eosinophils # 0.0 (0.0-0.6) K/mcL Basophils # 0.0 (0.0-0.2) K/mcL PT 12.5 H (9.4-12.1) Seconds INR 1.2 APTT 29.3 (26.0-36.0) Seconds - Radiology Data Radiology results reviewed: Yes I reviewed the patient's radiology results. Head CT 08/06/17 16:32 IMPRESSION: No acute intracranial abnormality. Findings were discussed with Lew Morris at 4:56 pm on 08/06/2017. D/ / Grover Domínguez MD / Grover Domínguez MD Interpreting Provider: Grover Domínguez MD Chest X-Ray 08/06/17 16:33 IMPRESSION: 1. No focal airspace disease identified. No appreciable change since comparison study. 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 Right cavernous ICA microaneurysm. RECOMMENDATIONS: Surgical consultation. 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 Right cavernous ICA microaneurysm. RECOMMENDATIONS: Surgical consultation. D/ / Momo Vasquez MD / Momo Vasquez MD Interpreting Provider: Momo Vasquez MD - EKG Data EKG attestation: Yes I reviewed and interpreted this EKG. EKG results narrative: 08/06/2017 at 16:31. A. fib. Rate 87. QRS 90. QTC 408. Normal axis. No acute ST elevation or depression. NIH Stroke Scale - Level of Consciousness LOC: Alert - LOC Questions LOC Questions: Answers both correctly - LOC Commands LOC Commands: Performs both correctly - Best Gaze Best Gaze: Partial gaze palsy - Visual Visual: No visual loss - Facial Palsy Facial Palsy: Minor asymmetry on smiling, flattened nasolabial fold - Motor Arms Motor Arm-Left: No drift for 10 seconds Motor Arm-Right: No movement - Motor Legs Motor Leg-Left: No drift for 5 seconds Motor Leg-Right: Some effort against gravity, limb drifts to bed - Limb Ataxia Limb Ataxia: Present in ONE limb - Sensory Sensory: Normal - Best Language Best Language: No aphasia - Dysarthria Dysarthria: Mild, slurs some words - Extinction and Inattention Extinction and Inattention: Normal - NIHSS Total Score NIHSS Total Score: 10 TPA Checklist - LKW: 3-4.5 hrs Add. Warnings/Precautions Patient/family understanding: The patient/family members have been counseled and understood the risk, benefit , and alternatives of treatment. S.B.A.R. - S.B.A.R. Situation: Demographics, MOA Background: Presenting Complaint, Relevant PMH, Meds, & Allergies Assessment: Vital Signs, Course and respsone to treatment, Exam Concerns, Patient/Family Expectation, Pertinant Lab Results, Outstanding Labs Recommendation: Barrier(s) to disposition, Recommendation based on pending studies, treatments, or consults S.B.A.R. Report Given to: Sumit Marrufo
[2017-08-06 17:03] LABS: Basophils % 0.5 %; Eosinophils % 0.4 %; Hematocrit 34.3 % (37.5-50.1); Hemoglobin 11.5 g/dL (12.9-16.9); Immature Granulocytes % 0.3 % (0-4); Lymphocytes # 0.7 K/mcL (0.6-4.6); Lymphocytes % 9.5 %; Mean Corpuscular HGB Conc 33.5 g/dL (31.6-35.5); Mean Corpuscular Hemoglobin 34.4 pg (28.0-33.3); Mean Corpuscular Volume 102.7 fL (83.0-100.0); Mean Platelet Volume 12.1 fL (9.4-12.4); Monocytes # 1.2 K/mcL (0.0-1.3); Monocytes % 16.7 %; Neutrophils # 5.3 K/mcL (1.6-8.9); Platelet Count 147 K/mcL (140-400); Red Blood Count 3.34 M/mcL (4.19-5.50); Red Cell Distribution Width 13.6 % (11.5-14.5); Segmented Neutrophils % 72.6 %
--- NOTE | 2017-08-06 17:06 | Emergency Department Note ---
Disposition Clinical Impression: CVA (cerebral vascular accident), Paralysis of right upper extremity, Weakness of right lower extremity, Facial droop Disposition: Admitted As Inpatient Condition: Fair General Adult HPI - General Chief complaint: ED Extremity Problem,Nontraumatic Stated complaint: poss stroke Time Seen by Provider: 08/06/17 16:29 Source: EMS Limitations: physical limitation, age - History of Present Illness Pain Scale: 0 - Related Data Home Medications Medication Instructions Recorded Confirmed LORazepam [Lorazepam Intensol] 0.5 mg PO Q12H PRN 08/06/17 08/06/17 Metoprolol [Lopressor] 2.5 mg IVP Q12H 08/06/17 08/06/17 Morphine Oral CONC [Roxanol] 0.5 ml PO Q1H PRN 08/06/17 08/06/17 Ondansetron ODT [Zofran ODT] 4 mg SL Q6HR 08/06/17 08/06/17 Clinimix E 5%-20% SOLUTION 10 ml IVC AD 08/07/17 08/07/17 [Clinimix E 5%-20% Solution] Previous Rx's Medication Instructions Recorded Enoxaparin [Lovenox] 60 mg SQ Q12HR #60 syringe 08/01/17 Levothyroxine Sodium [Synthroid] 75 mcg IVP DAILY #30 vial 08/01/17 Pantoprazole [Protonix] 40 mg IVP DAILY #30 vial 08/01/17 Allergies Allergy/AdvReac Type Severity Reaction Status Date / Time No Known Allergies Allergy Verified 07/29/17 14:29 Past Medical History - Past Medical History Medical history: Reports: arthritis, atrial fibrillation, cancer (head and neck cancer), COPD, coronary artery disease, hypertension, myocardial infarction, other Surgical history: Reports: orthopedic, other (left hip), pacemaker/AICD, other ( Peg tube placement and subsequent replacement (07/03/17); head/neck surgery for cancer and subsequent radiation therapy) Psychiatric history: Reports: no psych history - Social History Smoking Status: Former smoker Smokeless Tobacco Status: No Alcohol use: Reports: heavy, recent Drug use: Reports: none Physical Exam - General Limitations: physical limitation, age General appearance: alert, in no apparent distress Course Vital Signs Temperature 98.1 F 08/06/17 16:21 Pulse Rate 97 08/06/17 16:21 Respiratory Rate 16 08/06/17 16:21 Blood Pressure 128/86 08/06/17 16:21 O2 Sat by Pulse Oximetry 97 08/06/17 16:21 Temperature 97 F L 08/08/17 15:40 Pulse Rate 92 08/08/17 15:40 Respiratory Rate 16 08/08/17 15:40 Blood Pressure 105/71 08/08/17 15:40 O2 Sat by Pulse Oximetry 96 08/08/17 15:40 Oxygen Delivery Oxygen Delivery Room Air Medical Decision Making - Lab Data Result diagrams: 08/07/17 04:44 08/07/17 04:45 Lab Results 08/06/17 08/06/17 08/06/17 Range/Units 16:31 16:55 16:55 WBC 7.4 (4.3-11.1) K/mcL RBC 3.34 L (4.19-5.50) M/mcL Hgb 11.5 L (12.9-16.9) g/dL Hct 34.3 L (37.5-50.1) % MCV 102.7 H (83.0-100.0) fL MCH 34.4 H (28.0-33.3) pg MCHC 33.5 (31.6-35.5) g/dL RDW 13.6 (11.5-14.5) % Plt Count 147 (140-400) K/mcL MPV 12.1 (9.4-12.4) fL Immature Gran % 0.3 (0-4) % Seg Neutrophils % 72.6 % Lymphocytes % 9.5 % Monocytes % 16.7 % Eosinophils % 0.4 % Basophils % 0.5 % Neutrophils # 5.3 (1.6-8.9) K/mcL Lymphocytes # 0.7 (0.6-4.6) K/mcL Monocytes # 1.2 (0.0-1.3) K/mcL Eosinophils # 0.0 (0.0-0.6) K/mcL Basophils # 0.0 (0.0-0.2) K/mcL PT 12.5 H (9.4-12.1) Seconds INR 1.2 APTT 29.3 (26.0-36.0) Seconds Sodium (136-145) mEq/L Potassium (3.5-5.1) mEq/L Chloride (98-107) mEq/L Carbon Dioxide (23-29) mEq/L BUN (8-23) mg/dL Creatinine (0.70-1.30) mg/dL Est GFR ( Amer) (> 60) Est GFR (Non-Af Amer) (> 60) BUN/Creatinine Ratio (6-26) Glucose (70-105) mg/dL POC Glucose 77 (70-99) mg/dL Calculated Osmolality (280-300) Calcium (8.6-10.3) mg/dL Troponin I (< 0.04) ng/mL 08/06/17 08/06/17 Range/Units 16:55 19:43 WBC (4.3-11.1) K/mcL RBC (4.19-5.50) M/mcL Hgb (12.9-16.9) g/dL Hct (37.5-50.1) % MCV (83.0-100.0) fL MCH (28.0-33.3) pg MCHC (31.6-35.5) g/dL RDW (11.5-14.5) % Plt Count (140-400) K/mcL MPV (9.4-12.4) fL Immature Gran % (0-4) % Seg Neutrophils % % Lymphocytes % % Monocytes % % Eosinophils % % Basophils % % Neutrophils # (1.6-8.9) K/mcL Lymphocytes # (0.6-4.6) K/mcL Monocytes # (0.0-1.3) K/mcL Eosinophils # (0.0-0.6) K/mcL Basophils # (0.0-0.2) K/mcL PT (9.4-12.1) Seconds INR APTT (26.0-36.0) Seconds Sodium 138 (136-145) mEq/L Potassium 3.8 (3.5-5.1) mEq/L Chloride 106 (98-107) mEq/L Carbon Dioxide 26 (23-29) mEq/L BUN 28 H (8-23) mg/dL Creatinine 0.52 L (0.70-1.30) mg/dL Est GFR ( Amer) > 60 (> 60) Est GFR (Non-Af Amer) > 60 (> 60) BUN/Creatinine Ratio 54 H (6-26) Glucose 74 (70-105) mg/dL POC Glucose 110 H (70-99) mg/dL Calculated Osmolality 290 (280-300) Calcium 8.5 L (8.6-10.3) mg/dL Troponin I < 0.03 (< 0.04) ng/mL Attestation Statement - Attestation Attestation: I examined this patient and my medical decision-making was reviewed with the Resident Physician. I agree with the documented findings, disposition and treatment plan as described except to the extent set forth below. Last known well 1300, NIH 10. [facility] neurologist states not a candidate for thrombectomy d/t underlying neruologic disability with mRS of 4. HD stable, no airway compromise. Will admit to [facility]ist service.
[2017-08-06 17:08] LABS: INR 1.2; Prothrombin Time 12.5 Seconds (9.4-12.1)
[2017-08-06 17:10] LABS: Activated Partial Thrombo Time 29.3 Seconds (26.0-36.0)
[2017-08-06 18:07] LABS: Troponin I < 0.03 ng/mL (< 0.04)
[2017-08-06 18:10] LABS: BUN/Creatinine Ratio 54 (6-26); Blood Urea Nitrogen 28 mg/dL (8-23); Calcium 8.5 mg/dL (8.6-10.3); Carbon Dioxide 26 mEq/L (23-29); Chloride 106 mEq/L (98-107); Glucose 74 mg/dL (70-105); Osmolality,Calculated 290 (280-300); Potassium 3.8 mEq/L (3.5-5.1); Sodium 138 mEq/L (136-145); eGFR For African Americans > 60 (> 60); eGFR For Non-African Americans > 60 (> 60)
[2017-08-06] MEDS ORDERED: Naloxone 0.4 MG/ML INJ IVP PRN (20:19)
[2017-08-06] MEDS ORDERED: *HR* LORazepam Oral Conc 2 MG/ML PO PRN (20:21)
[2017-08-06] MEDS ORDERED: MORPHINE PO PRN (20:21)
--- NOTE | 2017-08-06 20:39 | Internal Med History&Physical ---
Date of Encounter: 08/06/17 Time of Encounter: 20:32 Internal Medicine - H&P: HPI Chief complaint: ? Stroke alert Admitted From: Emergency Dept Plans for Post Hospital Care: Transfer [facility] History of present illness: Mr. Phelps is a 77 year old male who is a background history of hypertension, hyperlipidemia, COPD, coronary artery disease, head and neck cancer, atrial fibrillation, pacemaker/AICD, PEG tube placement and replacement. Patient does have a tracheostomy. Patient is a resident of [facility]. He was sent from [facility] to this hospital as possibility of a new stroke. At the [facility] it was noted that patient had a right-sided upper extremity weakness drooping of the right side along with slurring of the speech. In view of the persistent new symptoms/new onset of neuro symptoms, patient's family was concerned and patient was transferred to emergency department. Workup in the emergency department: Patient was evaluated in the emergency department. Stroke alert was called. CT scan of the brain was done. [facility] neurology was consult it. In view of the underlying nature of the patient's multiple comorbid conditions, [facility] neurology recommended no TPA but workup the patient for possible stroke. Patient underwent head/neck CTA: Critical stenosis of right proximal cervical ICA and left common carotid artery. Noted right cavernous ICA microaneurysm. As recommended by [facility] neurology, thrombectomy is contraindicated. Reason for admission: TIA to rule out CVA/possibility of a metastatic disease cannot be ruled out. Past Med Surg Social Fam HX - Past Medical History Medical history: arthritis, atrial fibrillation, cancer, COPD, coronary artery disease, hypertension, myocardial infarction, other Psychiatric history: no psych history - Past Surgical History Surgical History: orthopedic, other, pacemaker/AICD, tracheostomy, other - Social History Smoking Status: Former smoker Smokeless Tobacco Status: No Alcohol use: heavy, recent Drug use: none Internal Medicine - H&P: Meds Enoxaparin [Lovenox] 60 mg SQ Q12HR #60 syringe 08/01/17 [Rx] Levothyroxine Sodium [Synthroid] 75 mcg IVP DAILY #30 vial 08/01/17 [Rx] Pantoprazole [Protonix] 40 mg IVP DAILY #30 vial 08/01/17 [Rx] LORazepam [Lorazepam Intensol] 0.5 mg PO Q12H PRN 05/09/18 [History] Metoprolol [Lopressor] 2.5 mg IVP Q12H 08/06/17 [History] Morphine Oral CONC [Roxanol] 0.5 ml PO Q1H PRN 08/06/17 [History] Ondansetron ODT [Zofran ODT] 4 mg SL Q6HR 08/06/17 [History] 3 Allergy/AdvReac Type Severity Reaction Status Date / Time No Known Allergies Allergy Verified 07/29/17 14:29 ROS unobtainable: due to mental status All Systems PM: A 10-system review of systems was performed and is negative for pertinent findings except as documented above in the HPI. - Constitutional Vitals: Temp Pulse Resp BP Pulse Ox 97.6 F 95 22 148/89 98 08/06/17 19:17 08/06/17 19:17 08/06/17 19:17 08/06/17 19:17 08/06/17 19:17 General appearance: Present: disheveled, A&O X 2, mild distress, pleasant - Head Head exam: Present: atraumatic, normocephalic - Eye Eye exam: Present: PERRL, conjuntiva pink, sclera anicteric Pupils: Present: PERRL - Neck Neck exam general surgery: Present: supple, trachea midline. Absent: lymphadenopathy - Respiratory Respiratory exam: Present: CTAB. Absent: accessory muscle use, rales, rhonchi, wheezes - Cardiovascular Cardiovascular exam: Present: RRR, +S1, +S2. Absent: diastolic murmur, gallop, rubs, systolic murmur - GI/Abdominal GI/Abdominal exam: Present: normal bowel sounds, soft, no peritoneal signs. Absent: distended, tenderness - Extremities Exam Extremities exam: Present: warm, radial pulses palpable and symmetrical. Absent : calf tenderness, cyanotic, pedal edema - Neurological Exam Neurological exam: Present: oriented X3, facial droop, speech deficit. Absent: pronater drift Additional comments: Patient is partially alert, answers questions correctly, follows, and correctly , patient does have a partial gaze patency, patient definitely has a drift. Patient does have a limb ataxia on the right-sided patient does have mild dysarthria. NIH score: 10 - Skin Skin exam: Present: dry, intact Internal Med - H&P Results - Labs CBC & Chem 7: 08/06/17 16:55 08/06/17 16:55 - Assessment and plan (1) CVA (cerebral vascular accident) Current Visit: Yes Status: Acute Assessment and plan: 77/male Multiple comorbid condition. Head and neck cancer. On a TPN. Has a AICD pacemaker. Admitted with possible right-sided weakness/left sided CVA. CT head: Negative. CTA neck shows critical stenosis of the ICU. Patient was evaluated by the [facility] telemetry neurology. In view of multiple comorbidities, [facility] telemetry neurology recommended conservative management and further workup. Plan: Admit as inpatient. Checks. Resume home medication. Continue Lovenox. Neurology evaluation. Possible repeat CT scan in next 24 hours. Unable to get MRI due to the AICD/pacemaker. I examined this patient in [id number] Qualifiers: CVA mechanism: unspecified Qualified Code(s): I63.9 - Cerebral infarction, unspecified (2) Facial droop Current Visit: Yes Status: Acute Assessment and plan: Not sure patient does have a facial droop or it just the residual effect of his radiation/chemotherapy for his head and neck cancer. We will get opinion from neurology. (3) Head and neck cancer Current Visit: Yes Status: Acute Assessment and plan: Patient does have a head and neck cancer. Patient is undergoing treatment for the same. Please consult hematology oncology tomorrow. 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 At this point patient needs a thorough pulmonary toilet. 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 Patient is on replacement dose. Qualifiers: Hypothyroidism type: unspecified Qualified Code(s): E03.9 - Hypothyroidism , unspecified (6) DVT prophylaxis Current Visit: Yes Status: Acute Assessment and plan: lovenox Medical decision making: This patient has a severe risk of worsening in spite of being on appropriate medication due to the underlying complex nature of the malignancy. - Time Spent With Patient Total time spent is greater than 50% in coordination of care (as documented) at patient's floor/unit and/or counseling patient:
[2017-08-06] MEDS: Ondansetron ODT 4 MG TAB.RAPDIS SL SCH (22:41)
[2017-08-06] MEDS: *HR* Metoprolol 5 MG/5 ML VIAL IVP SCH (22:42)
[2017-08-07 06:12] LABS: Basophils % 0.3 %; Eosinophils % 0.1 %; Hematocrit 35.4 % (37.5-50.1); Hemoglobin 11.8 g/dL (12.9-16.9); Immature Granulocytes % 0.7 % (0-4); Immature Platelets 9.4 % (1.1-6.1); Lymphocytes # 0.6 K/mcL (0.6-4.6); Lymphocytes % 5.5 %; Mean Corpuscular HGB Conc 33.3 g/dL (31.6-35.5); Mean Corpuscular Hemoglobin 34.5 pg (28.0-33.3); Mean Corpuscular Volume 103.5 fL (83.0-100.0); Mean Platelet Volume 12.8 fL (9.4-12.4); Monocytes # 1.1 K/mcL (0.0-1.3); Monocytes % 10.6 %; Neutrophils # 8.7 K/mcL (1.6-8.9); Nucleated Red Blood Cells 0.3 /100 WBC (0); Platelet Count 143 K/mcL (140-400); Red Blood Count 3.42 M/mcL (4.19-5.50); Red Cell Distribution Width 13.8 % (11.5-14.5); Segmented Neutrophils % 82.8 %
[2017-08-07 06:25] LABS: Alanine Aminotransferase 17 Units/L (7-52); Albumin 3.5 g/dL (3.5-5.7); Albumin/Globulin Ratio 1.1 (1.1-2.2); Alkaline Phosphatase 88 Units/L (34-104); Aspartate Amino Transferase 20 Units/L (13-39); BUN/Creatinine Ratio 43 (6-26); Bilirubin,Total 1.5 mg/dL (0.3-1.0); Blood Urea Nitrogen 22 mg/dL (8-23); Calcium 8.7 mg/dL (8.6-10.3); Carbon Dioxide 25 mEq/L (23-29); Chloride 105 mEq/L (98-107); Chol/HDL Ratio 4.9 (0-4.9); Cholesterol 118 mg/dL (< 200); Globulin 3.1 g/dL (2.4-3.5); Glucose 133 mg/dL (70-105); HDL Cholesterol 24 mg/dL (40-59); LDL Cholesterol,Calculated 75 mg/dL (0-99); Magnesium 1.8 mg/dL (1.6-2.6); Osmolality,Calculated 295 (280-300); Phosphorous 3.3 mg/dL (2.7-4.5); Potassium 3.7 mEq/L (3.5-5.1); Sodium 140 mEq/L (136-145); Total Protein 6.6 g/dL (6.4-8.9); Triglycerides 96 mg/dL (< 150); eGFR For African Americans > 60 (> 60); eGFR For Non-African Americans > 60 (> 60)
[2017-08-07] MEDS: *HR* Enoxaparin 60 MG/0.6 ML SYRINGE SQ SCH ×2 (06:27→17:42)
[2017-08-07] MEDS: Ondansetron ODT 4 MG TAB.RAPDIS SL SCH ×3 (06:27→17:42)
[2017-08-07 06:45] LABS: INR 1.1; Prothrombin Time 11.7 Seconds (9.4-12.1)
--- NOTE | 2017-08-07 07:58 | Internal Med Progress Note ---
<Justin Zheng - Last Filed: 08/07/17 14:03> Date of Encounter: 08/07/17 Time of Encounter: 07:56 - Assessment and plan (1) CVA (cerebral vascular accident) Current Visit: Yes Status: Suspected Assessment and plan: Patient presented with right sided facial droop, right upper extremity weakness , and questionable slurred speech yesterday. This morning, continues to have presenting symptoms, unimproved and not worsened. CT Head: negative CTA head/neck: critical stenosis of proximal right cervical ICA and left common carotid artery. 75% stenosis of proximal left cervical ICA. Right cavernous ICA microaneurysm. Neurology consulted, Vascular surgery consulted. Pending final recomendations, likely send back to shelter. Due to pacemaker and AICD, unable to proceed with MRI, consider repeat CT Head at 24 hours. Continue with Lovenox. Routine neuro checks. May consider Hem/Onc consult due to history of laryngeal cancer as metastatic disease is a possibility. 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 May consider HemOnc consult as there is a possibility this may be metastatic disease considering his history. (3) Facial droop Current Visit: Yes Status: Acute Assessment and plan: Right sided facial droop noted on exam. Neuro consulted. (4) Hypothyroid Current Visit: Yes Status: Chronic Assessment and plan: History of hypothyroidism, continue with home medications. 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 TPN per Nutrition; however, currently on bowel rest and peg to gravity due to recent surgery. D10 water for hydration at this time. (7) DVT prophylaxis Current Visit: Yes Status: Acute Assessment and plan: Continue with lovenox. (8) History of laryngeal cancer Current Visit: Yes Status: Acute Assessment and plan: per plan in assessment above. - Time Spent With Patient Total time spent is greater than 50% in coordination of care (as documented) at patient's floor/unit and/or counseling patient: - Subjective Interval history: Patient reports doing okay. He is AxO to person only. Patient was admitted for possible stroke. 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 Patient is reporting right upper extremity weakness. Denies fevers, chills, sweats, headaches, changes in vision, nausea, vomiting, chest pain, shortness of breath or cough, abdominal pain, changes in bowels or bladder, or loss of sensation. - Constitutional Vitals: Temp Pulse Resp BP Pulse Ox 97.7 F 93 15 118/72 95 08/07/17 06:45 08/07/17 06:45 08/07/17 06:45 08/07/17 06:45 08/07/17 06:45 General appearance: Present: A&O X 1, mild distress, pleasant, no acute distress , answers questions appropriately (with nodding yes and no) Exam: mild right sided facial droop. Questionable slurred speech vs soft voice vs s/ p layngectomy - Head Head exam: Present: atraumatic, normal inspection, normocephalic - Eye Eye exam: Present: EOMI, normal appearance, PERRL - ENT ENT exam: Present: mucous membranes dry Additional comments: oropharynx abnormal, non erythematous - Neck Neck exam general surgery: Present: full ROM, supple, trachea midline. Absent: lymphadenopathy, tenderness Additional comments: tracheostomy clean dry no erythema - Respiratory Respiratory exam: Present: rhonchi. Absent: rales, respiratory distress, wheezes - Cardiovascular Cardiovascular exam: Present: RRR, +S1, +S2 - GI/Abdominal GI/Abdominal exam: Present: normal bowel sounds, soft. Absent: tenderness Additional comments: peg tube in place. - Extremities Exam Extremities exam: Present: normal inspection, warm, radial pulses palpable and symmetrical. Absent: tenderness Additional comments: Right upper extremity strength 4/5, all other extremities 5/5 normal rom. - Neurological Exam Neurological exam: Present: alert, facial droop. Absent: strengths equal and symetr throughout - Skin Skin exam: Present: dry, intact, normal color, warm Internal Medicine: Result - Labs CBC & Chem 7: 08/07/17 04:44 08/07/17 04:45 Labs: Short CBC 08/07/17 Range/Units 04:44 WBC 10.5 (4.3-11.1) K/mcL Hgb 11.8 L (12.9-16.9) g/dL Hct 35.4 L (37.5-50.1) % Plt Count 143 (140-400) K/mcL Neutrophils # 8.7 (1.6-8.9) K/mcL BMP 08/07/17 04:45 Sodium 140 Potassium 3.7 Chloride 105 Carbon Dioxide 25 BUN 22 Creatinine 0.51 L Glucose 133 H Calcium 8.7 Cardiac Enzymes 08/06/17 08/07/17 Range/Units 22:55 04:45 Troponin I 0.03 0.03 (< 0.04) ng/mL Liver Function 08/07/17 Range/Units 04:45 Total Bilirubin 1.5 H (0.3-1.0) mg/dL AST 20 (13-39) Units/L ALT 17 (7-52) Units/L Alkaline Phosphatase 88 (34-104) Units/L Albumin 3.5 (3.5-5.7) g/dL - ABG Interpretation ABG results: PT/INR, D-dimer PT 11.7 Seconds (9.4-12.1) 08/07/17 04:44 Consult Discharge Plan - Plan Referrals: Abdi Soto, TEAM PRIMARY CARE PHYSICIAN [Primary Care Provider] - <Landry Humhprey - Last Filed: 08/07/17 16:50> Date of Encounter: 08/07/17 - Assessment and plan (1) Hypothyroid Current Visit: Yes Status: Chronic Qualifiers: Hypothyroidism type: unspecified Qualified Code(s): E03.9 - Hypothyroidism , unspecified (2) 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 (3) CVA (cerebral vascular accident) Current Visit: Yes Status: Suspected Qualifiers: CVA mechanism: unspecified Qualified Code(s): I63.9 - Cerebral infarction, unspecified (4) Facial droop Current Visit: Yes Status: Acute (5) DVT prophylaxis Current Visit: Yes Status: Acute (6) Head and neck cancer Current Visit: Yes Status: Chronic (7) Carotid stenosis Current Visit: Yes Status: Acute Qualifiers: Laterality: bilateral Qualified Code(s): I65.23 - Occlusion and stenosis of bilateral carotid arteries (8) History of laryngeal cancer Current Visit: Yes Status: Acute - Time Spent With Patient Total time spent is greater than 50% in coordination of care (as documented) at patient's floor/unit and/or counseling patient: - Constitutional Vitals: Temp Pulse Resp BP Pulse Ox 97.7 F 87 15 109/61 94 08/07/17 16:05 08/07/17 16:05 08/07/17 16:05 08/07/17 16:05 08/07/17 16:05 Internal Medicine: Result - Labs CBC & Chem 7: 08/07/17 04:44 08/07/17 04:45 Labs: Short CBC 08/07/17 Range/Units 04:44 WBC 10.5 (4.3-11.1) K/mcL Hgb 11.8 L (12.9-16.9) g/dL Hct 35.4 L (37.5-50.1) % Plt Count 143 (140-400) K/mcL Neutrophils # 8.7 (1.6-8.9) K/mcL BMP 08/07/17 04:45 Sodium 140 Potassium 3.7 Chloride 105 Carbon Dioxide 25 BUN 22 Creatinine 0.51 L Glucose 133 H Calcium 8.7 Cardiac Enzymes 08/06/17 08/07/17 08/07/17 Range/Units 22:55 04:45 11:20 Troponin I 0.03 0.03 0.03 (< 0.04) ng/mL Liver Function 08/07/17 Range/Units 04:45 Total Bilirubin 1.5 H (0.3-1.0) mg/dL AST 20 (13-39) Units/L ALT 17 (7-52) Units/L Alkaline Phosphatase 88 (34-104) Units/L Albumin 3.5 (3.5-5.7) g/dL - ABG Interpretation ABG results: PT/INR, D-dimer PT 11.7 Seconds (9.4-12.1) 08/07/17 04:44 - Attending Attestation I examined this patient and my medical decision-making was reviewed with the Resident Physician on 08/07/17. I agree with the documented findings, disposition and treatment plan as described except to the extent set forth below.
[2017-08-07] MEDS ORDERED: MORPHINE SUL Oral CONC 10 MG/0.5 ML ORAL.SYG SL PRN (09:00)
[2017-08-07] MEDS: *HR* Metoprolol 5 MG/5 ML VIAL IVP SCH ×2 (09:04→20:21)
[2017-08-07] MEDS: Levothyroxine Sodium 100 MCG VIAL IVP SCH (09:04)
[2017-08-07] MEDS: Pantoprazole 40 MG VIAL IVP SCH (09:04)
--- NOTE | 2017-08-07 09:53 | Neurology - Consult Note ---
<KarolinaJohn - Last Filed: 08/07/17 13:36> Date of Encounter: 08/07/17 Time of Encounter: 08:30 Assessment and Plan (1) CVA (cerebral vascular accident) Current Visit: Yes Status: Suspected Not visualized on CT and unable to perform MRI. Deficits include right upper extremity paralysis, right lower extremity weakness , and right-sided facial droop. Deficits are stable and have no progressed since last night. Not a candidate for TPA secondary to Lovenox. Not a candidate for thrombectomy secondary to long-standing neurologic deficits. Continue aspirin and lovenox. Physical therapy. Qualifiers: CVA mechanism: unspecified Qualified Code(s): I63.9 - Cerebral infarction, unspecified (2) Carotid stenosis Current Visit: Yes Status: Chronic Critical stenoses of the right cervical ICA and left common carotid, as well as right cavernous ICA microaneurysm, on CTA. Vascular surgery consulted Qualifiers: Laterality: bilateral Qualified Code(s): I65.23 - Occlusion and stenosis of bilateral carotid arteries History of Present Illness Chief complaint: right-sided weakness HPI: Raul Phelps is a 77 year old male with history of prior CVA, hypertension, hyperlipidemia, COPD, coronary artery disease, head and neck cancer, and atrial fibrillation on Lovenox injections who presents with right upper extremity paralysis, right lower extremity weakness, and right facial droop. Patient has tracheostomy in place and is unable to write, making history difficult to gather. Most history is gathered from chart review. Patient started having symptoms at approximately 1 PM yesterday and was brought to the emergency room from his residential by EMS. CT of the head is negative and the patient has pacemaker/AICD that prevents MRI from being performed. [facility] neurology examined the patient via tele-stroke and determined that the patient is not a candidate for TPA secondary to Lovenox injections and that he is not a candidate for thrombectomy secondary to previous neurologic disability. CTA demonstrated critical stenoses of the right cervical ICA and left common carotid with cavernous ICA microaneurysm on the right.. Patient admits continued weakness of the left side. Denies headache, dyspnea, numbness/paresthesia, and nausea/vomiting. Past Med Surg Social Fam HX - Past Medical History Medical history: arthritis, atrial fibrillation, cancer, COPD, coronary artery disease, hypertension, myocardial infarction, other Psychiatric history: no psych history - Past Surgical History Surgical History: orthopedic, other, pacemaker/AICD, tracheostomy, other - Social History Smoking Status: Former smoker Smokeless Tobacco Status: No Alcohol use: heavy, recent Drug use: none Medications and Allergies Enoxaparin [Lovenox] 60 mg SQ Q12HR #60 syringe 08/01/17 [Rx] Levothyroxine Sodium [Synthroid] 75 mcg IVP DAILY #30 vial 08/01/17 [Rx] Pantoprazole [Protonix] 40 mg IVP DAILY #30 vial 08/01/17 [Rx] LORazepam [Lorazepam Intensol] 0.5 mg PO Q12H PRN 08/06/17 [History] Metoprolol [Lopressor] 2.5 mg IVP Q12H 08/06/17 [History] Morphine Oral CONC [Roxanol] 0.5 ml PO Q1H PRN 08/06/17 [History] Ondansetron ODT [Zofran ODT] 4 mg SL Q6HR 08/06/17 [History] Clinimix E 5%-20% SOLUTION [Clinimix E 5%-20% Solution] 10 ml IVC AD 08/07/17 [ History] 3 Allergy/AdvReac Type Severity Reaction Status Date / Time No Known Allergies Allergy Verified 07/29/17 14:29 All Systems: The remainder of the systems were reviewed and are negative Review of Systems: 10 point review of systems completed and negative except as noted in the HPI Physical Examination - Vital Signs Vital Signs: Initial Vital Signs Temp Pulse Resp BP Pulse Ox 98.1 F 97 16 128/86 97 08/06/17 16:21 08/06/17 16:21 08/06/17 16:21 08/06/17 16:21 08/06/17 16:21 - Exam Exam: CONSTITUTIONAL: Comfortable and in no acute distress. Trach and peg in place. CARDIOVASCULAR: Regular rate and rhythm. +S1 and S2. CHEST: Normal work of breathing. NEURO: Mental Status: Alert. Follows commands and answers questions. Cranial Nerves: PERRL. EOMI. Symmetrical facial strength. Facial sensation intact. Dysarthria. Hearing intact. Right trapezius weakness. Tongue protrudes in midline. Motor: 2/5 RUE, except microfilming document preparer 3/5. 4/5 LUE. 3/5 RLE, except plantar/dorsiflexion 4 /5. 4/5 LLE. Sensation intact. Results - Laboratory Findings CBC and BMP: 08/07/17 04:44 08/07/17 04:45 Abnormal lab findings: Abnormal lab results RBC 3.42 M/mcL (4.19-5.50) L 08/07/17 04:44 Hgb 11.8 g/dL (12.9-16.9) L 08/07/17 04:44 Hct 35.4 % (37.5-50.1) L 08/07/17 04:44 MCV 103.5 fL (83.0-100.0) H 08/07/17 04:44 MCH 34.5 pg (28.0-33.3) H 08/07/17 04:44 MPV 12.8 fL (9.4-12.4) H 08/07/17 04:44 Nucleated RBCs/100 WBC 0.3 /100 WBC (0) H 08/07/17 04:44 Immature Plt Fraction 9.4 % (1.1-6.1) H 08/07/17 04:44 Creatinine 0.51 mg/dL (0.70-1.30) L 08/07/17 04:45 BUN/Creatinine Ratio 43 (6-26) H 08/07/17 04:45 Glucose 133 mg/dL (70-105) H 08/07/17 04:45 POC Glucose 110 mg/dL (70-99) H 08/06/17 19:43 Total Bilirubin 1.5 mg/dL (0.3-1.0) H 08/07/17 04:45 B-Natriuretic Peptide 225 pg/mL (Less than 100) H 08/07/17 04:44 HDL Cholesterol 24 mg/dL (40-59) L 08/07/17 04:45 Consult Discharge Plan - Plan Referrals: Abdi Soto, CAR PUSHER [Primary Care Provider] - <Eh Avila I - Last Filed: 08/08/17 09:01> Date of Encounter: 08/08/17 Assessment and Plan (1) CVA (cerebral vascular accident) Current Visit: Yes Status: Suspected Pt was seen and examined, my medical decision was reviewed with the Resident Physician, I agree with the documented findings, disposition and treatment plas as described except to the extent set forth below As patient who baseline has multiple medical conditions with a 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 Certainly is a not up candidate for any thrombotic, beside that limited option as far as treatment due to his generalized overall medical conditions. As far as carotid stenosis really doubt he be a surgical candidate vascular surgery has been consulted. Suggest treat medically with antiplatelet therapy along with statin. Treat underlying metabolic and infectious etiologies. As far as a stroke is consistent he would probably need long-term rehabilitation. His prognosis remains very guarded with multiple medical conditions and complications stroke is likely going to make it more difficult to treat. Recommend palliative care and conservative treatment Discussed with the primary team Eh Avila MD Qualifiers: CVA mechanism: unspecified Qualified Code(s): I63.9 - Cerebral infarction, unspecified History of Present Illness HPI: Mr. Phelps is a 77 year old male All Systems: The remainder of the systems were reviewed and are negative Physical Examination - Vital Signs Vital Signs: Initial Vital Signs Temp Pulse Resp BP Pulse Ox 98.1 F 97 16 128/86 97 08/06/17 16:21 08/06/17 16:21 08/06/17 16:21 08/06/17 16:21 08/06/17 16:21 Results - Laboratory Findings CBC and BMP: 08/07/17 04:44 08/07/17 04:45 Abnormal lab findings: Abnormal lab results RBC 3.42 M/mcL (4.19-5.50) L 08/07/17 04:44 Hgb 11.8 g/dL (12.9-16.9) L 08/07/17 04:44 Hct 35.4 % (37.5-50.1) L 08/07/17 04:44 MCV 103.5 fL (83.0-100.0) H 08/07/17 04:44 MCH 34.5 pg (28.0-33.3) H 08/07/17 04:44 MPV 12.8 fL (9.4-12.4) H 08/07/17 04:44 Nucleated RBCs/100 WBC 0.3 /100 WBC (0) H 08/07/17 04:44 Immature Plt Fraction 9.4 % (1.1-6.1) H 08/07/17 04:44 Creatinine 0.51 mg/dL (0.70-1.30) L 08/07/17 04:45 BUN/Creatinine Ratio 43 (6-26) H 08/07/17 04:45 Glucose 133 mg/dL (70-105) H 08/07/17 04:45 POC Glucose 142 mg/dL (70-99) H 08/07/17 03:55 Total Bilirubin 1.5 mg/dL (0.3-1.0) H 08/07/17 04:45 B-Natriuretic Peptide 225 pg/mL (Less than 100) H 08/07/17 04:44 HDL Cholesterol 24 mg/dL (40-59) L 08/07/17 04:45 - Diagnostic Findings Additional findings: CTA Critical stenoses of the proximal right cervical ICA and the left common carotid artery. Right cavernous ICA microaneurysm.
[2017-08-07] MEDS ORDERED: D10% in Water 500 ML IVC SCH (11:00)
[2017-08-07] MEDS ORDERED: D10% in Water 500 ML IVC PRN (12:02)
--- NOTE | 2017-08-07 14:55 | Vascular/Endovasc Consult Note ---
Date of Encounter: 08/07/17 Time of Encounter: 14:53 Assessment and Plan (1) Head and neck cancer Current Visit: Yes Status: Chronic Patient is status post radical left neck resection with probable pectoralis major flap and chemotherapy and radiation therapy. (2) Carotid stenosis Current Visit: Yes Status: Acute Patient has abnormal CT angiogram that demonstrates high-grade right internal carotid artery stenosis and left carotid artery stenosis. There is also question of possible internal carotid artery aneurysm at the base of the skull. There is no significant intracranial arterial disease. The patient is not a candidate for operative intervention for either the left or right carotid disease. This is because of his previous head and neck surgery with radiation as well as his overall cachexia and poor functional status and DNR status. If the patient and the family wishes to pursue intervention I would recommend evaluation at [facility] vascular surgery department for potential stent angioplasty but I would not be optimistic that they would view him as an appropriate candidate. I would recommend he be treated conservatively with antiplatelet agents. I expressed these ideas to the patient who seems to understand the issues. He indicates to me that he is not interested in pursuing carotid surgery. Qualifiers: Laterality: bilateral Qualified Code(s): I65.23 - Occlusion and stenosis of bilateral carotid arteries - History of Present Illness Consult date: 08/07/17 Consult reason: Carotid stenosis/possible TIA possible stroke Chief complaint: Patient unable to speak History of present illness: Mr. Phelps is a 77 year old male Was admitted via the emergency room yesterday. He was transferred from his long- term care extended care facility. Apparently there he was noted to have right upper extremity weakness and drooping. It is important to note that the patient is unable speak and so therefore he cannot provide any of this history. This is gleaned from the chart and from what indication I can obtain with the patient this afternoon. He offers no obvious complaints at this time. The patient apparently has a history of a previous stroke though the details of that are unavailable at this time. Most importantly the patient has a history of head and neck cancer. As best I can determine this was treated at [facility]. He underwent a radical left neck dissection. He had what appears to be a pectoralis major flap. He has a permanent tracheostomy and permanent gastrostomy tube for hydration and nutrition. The patient indicates that he had undergone both radiation therapy as well as chemotherapy associated with his radical neck dissection. Past history is also significant for coronary artery disease with atrial fibrillation. He has a pacemaker AICD. He also has a history of hypertension and elevated cholesterol and COPD. There is a history of tobacco abuse and former alcohol abuse. At the time of my visit there are no family members in the room to corroborate his findings or to answer any further historical depressions that I have. Past Med Surg Social Fam HX - Past Medical History Medical history: arthritis, atrial fibrillation, cancer, COPD, coronary artery disease, hypertension, myocardial infarction, other Psychiatric history: no psych history - Past Surgical History Surgical History: cancer surgery (Left radical neck dissection with what appears to be a pectoralis major flap as well as permanent tracheostomy and permanent G-tube.), orthopedic, other, pacemaker/AICD, tracheostomy, other - Social History Smoking Status: Former smoker Smokeless Tobacco Status: No Alcohol use: heavy, recent Drug use: none Medications and Allergies Enoxaparin [Lovenox] 60 mg SQ Q12HR #60 syringe 08/01/17 [Rx] Levothyroxine Sodium [Synthroid] 75 mcg IVP DAILY #30 vial 08/01/17 [Rx] Pantoprazole [Protonix] 40 mg IVP DAILY #30 vial 08/01/17 [Rx] LORazepam [Lorazepam Intensol] 0.5 mg PO Q12H PRN 08/06/17 [History] Metoprolol [Lopressor] 2.5 mg IVP Q12H 08/06/17 [History] Morphine Oral CONC [Roxanol] 0.5 ml PO Q1H PRN 08/06/17 [History] Ondansetron ODT [Zofran ODT] 4 mg SL Q6HR 08/06/17 [History] Clinimix E 5%-20% SOLUTION [Clinimix E 5%-20% Solution] 10 ml IVC AD 08/07/17 [ History] 3 Allergy/AdvReac Type Severity Reaction Status Date / Time No Known Allergies Allergy Verified 07/29/17 14:29 All Systems Review: The remainder of the systems were reviewed and are negative Exam Vital Signs, Last 4 Hours Temp Pulse Resp BP Pulse Ox 08/07/17 14:21 97.6 F 75 15 109/61 93 General: Present: No Apparent Distress, Other (Patient is an ill appearing cachectic elderly white male.). Absent: Conversant HEENT: Present: Other (Patient has facial asymmetry. Patient had the left mandible resected and reconstructed at his radical neck dissection per my review of the CT scan and so there is an obvious asymmetry on the left side of his face and mouth.). Absent: Normocephaly Neck: Present: Right Carotid bruit, Other (Patient has a permanent tracheostomy. It is a nonsmoking tracheostomy. The left neck is indurated. No carotid pulse can be felt on the left side nor can a carotid bruit heard on the left side. This area appears with the typical late changes from radiation therapy.). Absent: Lymphadenopathy, Midline deformity, Tracheal deviation Cardiac: Present: No Murmur, Other (Diminished heart tones) Lungs: Present: Normal Breath Sounds, No Wheeze, Rales, Rhonchi Neuro: Present: Alert and responsive Abdomen: Present: Soft, Non-tender, Other (Feeding gastrostomy tube is present) Skin: Present: No rashes noted on visualized skin Musculoskeletal: Present: No Chest Wall Tenderness, Other ([place]ed [place] Consult Discharge Plan - Plan Referrals: Abdi Soto, MAT CLEANING MACHINE OPERATOR [Primary Care Provider] -
--- NOTE | 2017-08-07 15:18 | Electrocardiograph Report ---
[place] [id number] Test Date: 2017-08-06 Pat Name: Raul Phelps Department: 103 Room: 2NE17 Gender: M Chaplaincy: : 1940 Requested By: Govind Naylor Order Number: [id number] Reading MD: Ana Paula Del Valle Measurements Intervals Glennie Rate: 87 P: TX: 0 QRS: 17 QRSD: 90 T: 20 QT: 364 QTc: 408 Interpretive Statements ATRIAL FIBRILLATION LOW QRS VOLTAGE IN EXTREMITY LEADS [QRS DEFLECTION < 0.5 mV IN LIMB LEADS] ABNORMAL RHYTHM ECG Electronically Signed On 08-07-2017 15:17:06 EDT by Ana Paula Del Valle
[2017-08-07] MEDS ORDERED: Clinimix E 5%-15% SOLUTION 2,000 ML with MVI, adult with vitamin K 10 ML IVC SCH (17:00)
[2017-08-08 04:51] LABS: VBG Ionized Calcium 1.11 mmol/L (1.15-1.35)
[2017-08-08] MEDS: Ondansetron ODT 4 MG TAB.RAPDIS SL SCH ×2 (05:40→12:25)
[2017-08-08] MEDS: *HR* Enoxaparin 60 MG/0.6 ML SYRINGE SQ SCH (05:40)
[2017-08-08 06:29] LABS: Magnesium 1.9 mg/dL (1.6-2.6)
--- NOTE | 2017-08-08 08:01 | Discharge Summary ---
<Justin Zheng - Last Filed: 08/08/17 13:37> - NOTES TO OUTPATIENT PROVIDER Notes to Outpatient Provider: Hospitalized for stroke-like symptoms including right upper extremity weakness. CT Head was negative for bleed, unable to complete MRI due to AICD. Patient's exam was stable and unchanged during stay. Neuro recommends continued aspirin and lovenox, no additional intervention. Found to have severe carotid stenosis, Vascular surgery consulted and patient was not candidate for operative interventions. Discharge back to long-term with PT/OT needs as tolerated. Date of Encounter: 08/08/17 Time of Encounter: 07:58 - Discharge Diagnosis (1) CVA (cerebral vascular accident) Priority: Primary Status: Suspected Assessment and Plan: Patient presented with right sided facial droop, right upper extremity weakness , and questionable slurred speech 08/06/17. This morning, continues to have presenting symptoms, unimproved and not worsened. CT Head: negative CTA head/neck: critical stenosis of proximal right cervical ICA and left common carotid artery. 75% stenosis of proximal left cervical ICA. Right cavernous ICA microaneurysm. Neurology consulted and recommend asa and lovenox, PT Vascular consulted and not a candidate for operative intervention of carotid disease Due to pacemaker and AICD, unable to proceed with MRI, consider repeat CT Head at 24 hours. Continue with Lovenox and aspirin Routine neuro checks. 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 (3) Facial droop Priority: Secondary Status: Chronic Assessment and Plan: Right sided facial droop noted on exam; however, most consistent with prior reconstructive surgery for history of cancer. (4) Hypothyroid Priority: Secondary Status: Chronic Assessment and Plan: History of hypothyroidism, continue with home medications. 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 TPN per Nutrition. Currently on bowel rest and peg to gravity due to recent surgery. (7) History of laryngeal cancer Priority: Secondary Status: Acute Assessment and Plan: per plan in assessment above. Hospital course: Mr. Phelps is a 77 year old male who presented with complaint of right upper extremity weakness, right facial droop, and slurred speech that started . CT Head was negative. CTA head/neck revealed critical stenosis of proximal right cervical ICA and left common carotid artery. MRI could not be performed due to AICD. Neurology consulted and recommended asa and lovenox. Vascular surgey consulted and patient is not a candidate for surgical intervention. Patient continued to have symptoms on day of discharge with some mild improvement in right upper extremity weakness. And questionable speech slurring due to soft voice vs history of laryngectomy and questionable if true facial droop with his history of reconstructive surgery in history of laryngeal cancer. Discharge back to long-term and need PT. - Time Spent with Patient Total time spent providing and/or coordinating discharge services: - Discharge Medications Home Medications: Enoxaparin [Lovenox] 60 mg SQ Q12HR #60 syringe 08/01/17 [Rx] Levothyroxine Sodium [Synthroid] 75 mcg IVP DAILY #30 vial 08/01/17 [Rx] Pantoprazole [Protonix] 40 mg IVP DAILY #30 vial 08/01/17 [Rx] LORazepam [Lorazepam Intensol] 0.5 mg PO Q12H PRN 08/06/17 [History] Metoprolol [Lopressor] 2.5 mg IVP Q12H 08/06/17 [History] Morphine Oral CONC [Roxanol] 0.5 ml PO Q1H PRN 08/06/17 [History] Ondansetron ODT [Zofran ODT] 4 mg SL Q6HR 08/06/17 [History] Clinimix E 5%-20% SOLUTION [Clinimix E 5%-20% Solution] 10 ml IVC AD 08/07/17 [ History] Allergies/Adverse Reactions: 3 Allergy/AdvReac Type Severity Reaction Status Date / Time No Known Allergies Allergy Verified 07/29/17 14:29 Date of admission: 08/06/17 20:19 Primary care physician: Abdi Soto CNP Consults: 08/06/17 20:57 Consult to Neurology [CONS] Routine Consulting Provider: [facility] Reason for Consult: TIA to rule out CVA Call Completed: Yes 08/07/17 07:27 Consult to Business Account Manager [CONS] Routine Reason for SW Consult: from [place] 08/07/17 07:45 Consult to Nutrition [CONS] Routine Comment: Consulting Provider: NUTRITION Reason for Dietary Consult: Other Other:: Pt is from [place]. Has TPN and g-tube draining to gravity 08/07/17 08:23 Consult to Vascular Surgery [CONS] Routine Consulting Provider: [facility] [place] Reason for Consult: Spoke with Dr. Corrales regarding case, critical ICA stenosis. Time Notified: 08:24 Call Completed: Yes 08/07/17 10:58 Consult to Nutrition [CONS] Routine Comment: TPN Consulting Provider: NUTRITION Reason for Dietary Consult: TPN Start and Manage Discharging clinician: Justin Haney) Anticipated date of discharge: 08/08/17 - Constitutional Vitals: Temp Pulse Resp BP Pulse Ox 98 F 99 16 120/68 97 08/08/17 07:12 08/08/17 07:12 08/08/17 07:12 08/08/17 07:12 08/08/17 07:12 General appearance: Present: A&O X 1, mild distress, pleasant, no acute distress , answers questions appropriately (with nodding yes and no) - Head Head exam: Present: atraumatic, normal inspection, normocephalic - Eye Eye exam: Present: EOMI, normal appearance, PERRL - ENT ENT exam: Present: mucous membranes dry Additional comments: oropharynx abnormal s/p laryngectomy, tracheostomy present and clean dry without erythema - Neck Neck exam general surgery: Present: full ROM, supple, trachea midline - Respiratory Respiratory exam: Present: CTAB. Absent: rales, rhonchi, wheezes - Cardiovascular Cardiovascular exam: Present: RRR, +S1, +S2 - GI/Abdominal GI/Abdominal exam: Present: normal bowel sounds, soft. Absent: tenderness Additional comments: peg tube site clean dry intact without erythema - Extremities Exam Extremities exam: Present: normal inspection, warm, radial pulses palpable and symmetrical. Absent: pedal edema - Skin Skin exam: Present: dry, intact, normal color, warm - Patient Status Disposition: Transfer SNF Condition: Fair Functional capacity at discharge: bed bound Overall status at discharge: patient is progressing back to baseline - Discharge Instructions Follow Up With: Abdi Soto CNP [Primary Care Provider] - - Diet and Activity Activity: as per physical therapy Diet: other (TPN until surgery PEG tube clearance) <Landry Humphrey - Last Filed: 08/08/17 14:46> Date of Encounter: 08/08/17 - Discharge Diagnosis (1) Hypothyroid Status: Chronic Qualifiers: Hypothyroidism type: unspecified Qualified Code(s): E03.9 - Hypothyroidism , unspecified (2) Tracheal stenosis Status: Chronic (3) CVA (cerebral vascular accident) Status: Suspected Qualifiers: CVA mechanism: unspecified Qualified Code(s): I63.9 - Cerebral infarction, unspecified (4) Facial droop Status: Chronic (5) Head and neck cancer Status: Chronic (6) Carotid stenosis Status: Acute Qualifiers: Laterality: bilateral Qualified Code(s): I65.23 - Occlusion and stenosis of bilateral carotid arteries (7) History of laryngeal cancer Status: Acute Hospital course: Mr. Phelps is a 77 year old male Discharge discussed with: patient, nurse, social work, case management - Time Spent with Patient Total time spent providing and/or coordinating discharge services: Greater than 30 minutes Date of admission: 08/06/17 20:19 Primary care physician: Abdi Soto CNP Consults: 08/06/17 20:57 Consult to Neurology [CONS] Routine Consulting Provider: [facility] Reason for Consult: TIA to rule out CVA Call Completed: Yes 08/07/17 07:27 Consult to Business Account Manager [CONS] Routine Reason for SW Consult: from [facility] [employer] 08/07/17 07:45 Consult to Nutrition [CONS] Routine Comment: Consulting Provider: NUTRITION Reason for Dietary Consult: Other Other:: Pt is from [facility]. Has TPN and g-tube draining to gravity 08/07/17 08:23 Consult to Vascular Surgery [CONS] Routine Consulting Provider: [facility] [place] Reason for Consult: Spoke with Dr. Corrales regarding case, critical ICA stenosis. Time Notified: 08:24 Call Completed: Yes 08/07/17 10:58 Consult to Nutrition [CONS] Routine Comment: TPN Consulting Provider: NUTRITION Reason for Dietary Consult: TPN Start and Manage - Constitutional Vitals: Temp Pulse Resp BP Pulse Ox 97.8 F 91 14 105/68 93 08/08/17 11:41 08/08/17 11:41 08/08/17 11:41 08/08/17 11:41 08/08/17 11:41 - Attending Attestation I examined this patient and my medical decision-making was reviewed with the Resident Physician on 08/08/17. I agree with the documented findings, disposition and treatment plan as described except to the extent set forth below. 77 M with tracheal stenosis s/p trach with stoma, PEG tube (not being used due to leak) actively followed by surgery, HTN, Hypothyroid, resident of SNF, admitted for CVA suspicion and work up. Also had critical stenosis of ICA. Neuro , vascuar eval noted. Patient is on lovenoc, NPO, cannot take ASA. PTOT eval noted, for return to SNF, to continue with TPN and current IV meds.
[2017-08-08] MEDS: *HR* Metoprolol 5 MG/5 ML VIAL IVP SCH (09:40)
[2017-08-08] MEDS: Pantoprazole 40 MG VIAL IVP SCH (09:40)
[2017-08-08] MEDS: Levothyroxine Sodium 100 MCG VIAL IVP SCH (09:40)
--- NOTE | 2017-08-08 14:49 | Physician Discharge Referral ---
ExtendedCare Referral Info Transfer To: SNF Provider in Charge: Kam Provider in Charge after Transfer: PCP Institutional Level of Care: Skilled - Diagnosis (1) CVA (cerebral vascular accident) Priority: Primary Status: Suspected (2) Head and neck cancer Priority: Secondary Status: Chronic (3) Facial droop Priority: Secondary Status: Chronic (4) Hypothyroid Priority: Secondary Status: Chronic (5) Carotid stenosis Priority: Secondary Status: Acute (6) History of laryngeal cancer Priority: Secondary Status: Acute (7) Tracheal stenosis Priority: Secondary Status: Chronic - Transfer Medications Home Medications: Enoxaparin [Lovenox] 60 mg SQ Q12HR #60 syringe 08/01/17 [Rx] Levothyroxine Sodium [Synthroid] 75 mcg IVP DAILY #30 vial 08/01/17 [Rx] Pantoprazole [Protonix] 40 mg IVP DAILY #30 vial 08/01/17 [Rx] LORazepam [Lorazepam Intensol] 0.5 mg PO Q12H PRN 08/06/17 [History] Metoprolol [Lopressor] 2.5 mg IVP Q12H 08/06/17 [History] Morphine Oral CONC [Roxanol] 0.5 ml PO Q1H PRN 08/06/17 [History] Ondansetron ODT [Zofran ODT] 4 mg SL Q6HR 08/06/17 [History] Clinimix E 5%-20% SOLUTION [Clinimix E 5%-20% Solution] 10 ml IVC AD 08/07/17 [ History] Allergies/Adverse Reactions: 3 Allergy/AdvReac Type Severity Reaction Status Date / Time No Known Allergies Allergy Verified 07/29/17 14:29 - Respiratory Orders Smoking Cessation: Smoking cessation has been advised. For more information, call the [place] Tobacco Quit Line at 3-501-XFFK-NOW. - Ancillary Orders May use pressure relief devices daily prn - Advance Directives Code Status: DNR-Comfort Care - Mobility Orders Other (as tolerated) - Rehabiliation Orders Rehab Potential: Fair Rehab Orders: Sternal Precautions, ROM Exercises, Evaluation for Physical Therapy, Evaluation for Occupational Therapy, Evaluation for Speech Therapy - Treatments Skin tear care topically daily PRN per policy, May check for fecal impaction rectally daily PRN, Fleet enema rectally every other day PRN cleansing purposes - Diet Orders No Concentrated Sweets, Renal, Cardiac CERTIFICATION: I certify that the transfer of the above named patient to an Extended Care Facility is necessary for the continuing treatment of the diagnosis listed. The above information is true and accurate reflection of patient's current condition. Confidential - Redisclosure prohibited without a patient's written consent.
[2017-08-08 15:42] VITALS: BP 105/71
== END 2017-08-08 17:50 | DRG 65 ==
LOC: 2NENU 16:18 → EMEROO 16:18 → 2NENU 18:55
PROVIDERS: ADMIT Hospitalist; ATTEND Hospitalist

== ENCOUNTER 2017-09-09 15:36 | Inpatient (IN) ==
--- NOTE | 2017-09-09 16:11 | Emergency Department Note ---
Disposition Clinical Impression: CVA (cerebral vascular accident) Qualifiers: CVA mechanism: unspecified Qualified Code(s): I63.9 - Cerebral infarction, unspecified Disposition: Admitted As Inpatient Condition: Fair Referrals: Abdi Soto, SUNDAY [Primary Care Provider] - Forms: ED Satisfaction Letter Time of Disposition: 18:27 Altered Mental Status HPI - General Chief Complaint: ED Altered Mental Status Stated Complaint: AMS Time Seen by Provider: 09/09/17 15:55 Source: patient, EMS Mode of arrival: EMS Limitations: altered mental status Nursing Notes Reviewed: Yes Vital Signs Reviewed: Yes - History of Present Illness HPI Narrative: 77-year-old with a trach who has a history of pneumonia cerebral infarct cognitive community Sandra of deficit 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 I did speak to the surgery department department and they stated that the patient was obtunded last week when he was here and they had wanted him to come to the ER then but apparently they took him back to the facility. I did review the facility notes he does take morphine sulfate 10 mg by mouth every 1 hour. MD complaint: altered mental status Onset (ago): day(s) Timing confirmed by: caregiver Context: alcohol abuse (Ron), other (Has cancer and is on a large amount of pain medication.) - Related Data Home Medications Medication Instructions Recorded Confirmed LORazepam [Lorazepam Intensol] 0.5 mg PO Q12H PRN 08/06/17 08/06/17 Metoprolol [Lopressor] 2.5 mg IVP Q12H 08/06/17 08/06/17 Morphine Oral CONC [Roxanol] 0.5 ml PO Q1H PRN 08/06/17 08/06/17 Ondansetron ODT [Zofran ODT] 4 mg SL Q6HR 08/06/17 08/06/17 Clinimix E 5%-20% SOLUTION 10 ml IVC AD 08/07/17 08/07/17 [Clinimix E 5%-20% Solution] Previous Rx's Medication Instructions Recorded Enoxaparin [Lovenox] 60 mg SQ Q12HR #60 syringe 08/01/17 Levothyroxine Sodium [Synthroid] 75 mcg IVP DAILY #30 vial 08/01/17 Pantoprazole [Protonix] 40 mg IVP DAILY #30 vial 08/01/17 Allergies Allergy/AdvReac Type Severity Reaction Status Date / Time No Known Allergies Allergy Verified 07/29/17 14:29 Limitations: ROS unobtainable due to patients medical condition Past Medical History - Past Medical History Medical history: Reports: arthritis, atrial fibrillation, cancer, COPD, coronary artery disease, GERD, hypertension, myocardial infarction, other Surgical history: Reports: cancer surgery (Left radical neck dissection with what appears to be a pectoralis major flap as well as permanent tracheostomy and permanent G-tube.), orthopedic, other, pacemaker/AICD, tracheostomy, other Psychiatric history: Reports: no psych history - Social History Smoking Status: Former smoker Smokeless Tobacco Status: No Alcohol use: Reports: none Drug use: Reports: none Physical Exam - General Limitations: altered mental status General appearance: alert - Head Head exam: atraumatic, normocephalic, normal inspection - Eye Eye exam: Present: normal appearance, PERRL, EOMI - ENT ENT exam: normal exam, normal oropharynx, mucous membranes moist - Neck Neck exam: Present: normal inspection, full ROM, trachea midline - Chest Chest inspection: Present: normal inspection, symmetric chest wall rise - Respiratory Respiratory exam: Present: other (Rhonchi) - Cardiovascular Cardiovascular exam: Present: regular rate, normal rhythm, normal heart sounds - Abdominal Exam Abdominal exam: Present: soft, Non-Tender. Absent: tenderness, distention, guarding, rebound, rigidity - Extremities Exam Extremities exam: Present: normal inspection, full ROM. Absent: tenderness, pedal edema - Expanded Lower Extremity Exam Neurovascular/Tendon exam: Absent: motor deficit, sensory deficit, tendon deficit Gait: observed and normal - Back Exam Back exam: Present: normal inspection, full ROM. Absent: tenderness - Neurological Exam Neurological exam: Present: alert, oriented X3 - Psychiatric Psychiatric exam: Present: normal affect, normal mood - Skin Skin exam: Present: warm, dry, intact, normal color Course - Reevaluation(s) Reevaluation #1: 77-year-old whose had altered mental status for the last week. Was seen at the surgical clinic last week and they wanted her him to be seen in the ER then but was transported back to the facility today was seen in the surgery clinic again and was noted to be altered. CT scan today shows a late subacute left cerebral infarct. There is some mild mass effect. It appears that he has had a CVA at least a week old. Time: 18:21 - Consultations Consultation #1: Discussed with Dr. Lemus, the patient is not a TPA candidate based on the fact that he is likely had the symptoms for at least a week. He also has findings on his CT scan that would preclude the use of TPA. Time: 18:24 Consultation #2: Discussed with , admit. Time: 18:40 Vital Signs Temperature 99.5 F 09/09/17 15:44 Pulse Rate 129 09/09/17 15:44 Respiratory Rate 26 09/09/17 15:44 Blood Pressure 121/83 09/09/17 15:44 O2 Sat by Pulse Oximetry 97 09/09/17 15:44 Temperature 99.5 F 09/09/17 15:44 Pulse Rate 119 09/09/17 18:03 Respiratory Rate 26 09/09/17 18:03 Blood Pressure 123/77 09/09/17 18:03 O2 Sat by Pulse Oximetry 99 09/09/17 18:03 Oxygen Delivery Oxygen Delivery Nasal Cannula Altered Mental Status - Lab Data Lab results reviewed: Yes I reviewed the patient's lab results. Result diagrams: 09/09/17 17:38 09/09/17 17:07 Lab Results 09/09/17 09/09/17 09/09/17 Range/Units 16:06 17:06 17:07 WBC (4.3-11.1) K/mcL RBC (4.19-5.50) M/mcL Hgb (12.9-16.9) g/dL Hct (37.5-50.1) % MCV (83.0-100.0) fL MCH (28.0-33.3) pg MCHC (31.6-35.5) g/dL RDW (11.5-14.5) % Plt Count (140-400) K/mcL MPV (9.4-12.4) fL Immature Gran % (0-4) % Seg Neutrophils % % Lymphocytes % % Monocytes % % Eosinophils % % Basophils % % Neutrophils # (1.6-8.9) K/mcL Lymphocytes # (0.6-4.6) K/mcL Monocytes # (0.0-1.3) K/mcL Eosinophils # (0.0-0.6) K/mcL Basophils # (0.0-0.2) K/mcL PT 12.0 (9.4-12.1) Seconds INR 1.1 APTT 22.3 L (26.0-36.0) Seconds Sample Site R Radial ABG pH 7.47 H (7.32-7.45) pH Units ABG pCO2 41 (35-45) mmHg ABG pO2 101 (85-104) mmHg ABG HCO3 30 H (21-27) mEq/L ABG Total CO2 31 H (20-26) mEq/L ABG O2 Saturation 98 (95-98) % ABG Base Excess 5 H (-2 to 3) mEq/L Jean Test N/A O2 Delivery Device Cannula Inspired O2 44.0 (1-15=lpm [id number]=%) Sodium (136-145) mEq/L Potassium (3.5-5.1) mEq/L Chloride (98-107) mEq/L Carbon Dioxide (23-29) mEq/L BUN (8-23) mg/dL Creatinine (0.70-1.30) mg/dL Est GFR ( Amer) (> 60) Est GFR (Non-Af Amer) (> 60) BUN/Creatinine Ratio (6-26) Glucose (70-105) mg/dL POC Glucose 128 H (70-99) mg/dL Calculated Osmolality (280-300) Lactic Acid (0.5-2.2) mmol/L Calcium (8.6-10.3) mg/dL Total Bilirubin (0.3-1.0) mg/dL Direct Bilirubin (0.0-0.2) mg/dL Indirect Bilirubin (0.0-1.2) mg/dL AST (13-39) Units/L ALT (7-52) Units/L Alkaline Phosphatase (34-104) Units/L Troponin I (< 0.04) ng/mL Serum Total Protein (6.4-8.9) g/dL Albumin (3.5-5.7) g/dL Globulin (2.4-3.5) g/dL Albumin/Globulin Ratio (1.1-2.2) Urine Color (Yellow) Urine Clarity (Clear) Urine pH (5.0-8.0) pH Units Ur Specific [place] (1.010-1.025) Urine Protein (Neg-Trace) mg/dL Urine Glucose (UA) (Normal) mg/dL Urine Ketones (Negative) mg/dL Urine Blood (Negative) Urine Nitrite (Negative) Urine Bilirubin (Negative) Urine Urobilinogen (Normal) mg/dL Ur Leukocyte Esterase (Negative) Urine Microscopic RBC (0-3) per hpf Urine Microscopic WBC (0-3) per hpf Ur Squamous Epith Cells (None-Few) per lpf Urine Bacteria (None-Few) per hpf Hyaline Casts (None-Few) per lpf Ur Culture Indicated? (NO) Urine Opiates Screen (Msntbx=547) ng/mL Ur Barbiturates Screen (Emricq=679) ng/mL Ur Phencyclidine Scrn (Cutoff=25) ng/mL Ur Amphetamines Screen (Ciwdkc=2633) ng/mL U Benzodiazepines Scrn (Emcydt=018) ng/mL Urine Cocaine Screen (Cutoff= 300) ng/mL U Marijuana (THC) Screen (Cutoff = 50) ng/mL Ethyl Alcohol (Less than 10) mg/dL 09/09/17 09/09/17 09/09/17 Range/Units 17:07 17:30 17:30 WBC (4.3-11.1) K/mcL RBC (4.19-5.50) M/mcL Hgb (12.9-16.9) g/dL Hct (37.5-50.1) % MCV (83.0-100.0) fL MCH (28.0-33.3) pg MCHC (31.6-35.5) g/dL RDW (11.5-14.5) % Plt Count (140-400) K/mcL MPV (9.4-12.4) fL Immature Gran % (0-4) % Seg Neutrophils % % Lymphocytes % % Monocytes % % Eosinophils % % Basophils % % Neutrophils # (1.6-8.9) K/mcL Lymphocytes # (0.6-4.6) K/mcL Monocytes # (0.0-1.3) K/mcL Eosinophils # (0.0-0.6) K/mcL Basophils # (0.0-0.2) K/mcL PT (9.4-12.1) Seconds INR APTT (26.0-36.0) Seconds Sample Site ABG pH (7.32-7.45) pH Units ABG pCO2 (35-45) mmHg ABG pO2 (85-104) mmHg ABG HCO3 (21-27) mEq/L ABG Total CO2 (20-26) mEq/L ABG O2 Saturation (95-98) % ABG Base Excess (-2 to 3) mEq/L Ejan Test O2 Delivery Device Inspired O2 (1-15=lpm [id number]=%) Sodium 134 L (136-145) mEq/L Potassium 3.9 (3.5-5.1) mEq/L Chloride 98 (98-107) mEq/L Carbon Dioxide 28 (23-29) mEq/L BUN 26 H (8-23) mg/dL Creatinine 0.50 L (0.70-1.30) mg/dL Est GFR ( Amer) > 60 (> 60) Est GFR (Non-Af Amer) > 60 (> 60) BUN/Creatinine Ratio 52 H (6-26) Glucose 112 H (70-105) mg/dL POC Glucose (70-99) mg/dL Calculated Osmolality 284 (280-300) Lactic Acid (0.5-2.2) mmol/L Calcium 8.6 (8.6-10.3) mg/dL Total Bilirubin 0.6 (0.3-1.0) mg/dL Direct Bilirubin 0.2 (0.0-0.2) mg/dL Indirect Bilirubin 0.4 (0.0-1.2) mg/dL AST 42 H (13-39) Units/L ALT 40 (7-52) Units/L Alkaline Phosphatase 129 H (34-104) Units/L Troponin I 0.05 H* (< 0.04) ng/mL Serum Total Protein 6.8 (6.4-8.9) g/dL Albumin 3.2 L (3.5-5.7) g/dL Globulin 3.6 H (2.4-3.5) g/dL Albumin/Globulin Ratio 0.9 L (1.1-2.2) Urine Color Yellow (Yellow) Urine Clarity Clear (Clear) Urine pH 5.5 (5.0-8.0) pH Units Ur Specific [place] 1.024 (1.010-1.025) Urine Protein Trace (Neg-Trace) mg/dL Urine Glucose (UA) Normal (Normal) mg/dL Urine Ketones Negative (Negative) mg/dL Urine Blood Negative (Negative) Urine Nitrite Negative (Negative) Urine Bilirubin Negative (Negative) Urine Urobilinogen Normal (Normal) mg/dL Ur Leukocyte Esterase Negative (Negative) Urine Microscopic RBC 3-5 H (0-3) per hpf Urine Microscopic WBC 0-3 (0-3) per hpf Ur Squamous Epith Cells Moderate H (None-Few) per lpf Urine Bacteria None Seen (None-Few) per hpf Hyaline Casts None Seen (None-Few) per lpf Ur Culture Indicated? NO (NO) Urine Opiates Screen Negative (Aamblj=763) ng/mL Ur Barbiturates Screen Negative (Hbzito=361) ng/mL Ur Phencyclidine Scrn Negative (Cutoff=25) ng/mL Ur Amphetamines Screen Negative (Xneoip=3957) ng/mL U Benzodiazepines Scrn Negative (Tdajtc=598) ng/mL Urine Cocaine Screen Negative (Cutoff= 300) ng/mL U Marijuana (THC) Screen Negative (Cutoff = 50) ng/mL Ethyl Alcohol < 10 (Less than 10) mg/dL 09/09/17 09/09/17 Range/Units 17:38 17:38 WBC 6.1 (4.3-11.1) K/mcL RBC 3.21 L (4.19-5.50) M/mcL Hgb 10.4 L (12.9-16.9) g/dL Hct 32.7 L (37.5-50.1) % MCV 101.9 H (83.0-100.0) fL MCH 32.4 (28.0-33.3) pg MCHC 31.8 (31.6-35.5) g/dL RDW 13.2 (11.5-14.5) % Plt Count 183 (140-400) K/mcL MPV 11.3 (9.4-12.4) fL Immature Gran % 0.3 (0-4) % Seg Neutrophils % 73.7 % Lymphocytes % 9.2 % Monocytes % 15.4 % Eosinophils % 1.1 % Basophils % 0.3 % Neutrophils # 4.5 (1.6-8.9) K/mcL Lymphocytes # 0.6 (0.6-4.6) K/mcL Monocytes # 0.9 (0.0-1.3) K/mcL Eosinophils # 0.1 (0.0-0.6) K/mcL Basophils # 0.0 (0.0-0.2) K/mcL PT (9.4-12.1) Seconds INR APTT (26.0-36.0) Seconds Sample Site ABG pH (7.32-7.45) pH Units ABG pCO2 (35-45) mmHg ABG pO2 (85-104) mmHg ABG HCO3 (21-27) mEq/L ABG Total CO2 (20-26) mEq/L ABG O2 Saturation (95-98) % ABG Base Excess (-2 to 3) mEq/L Jean Test O2 Delivery Device Inspired O2 (1-15=lpm sm14-275=%) Sodium (136-145) mEq/L Potassium (3.5-5.1) mEq/L Chloride (98-107) mEq/L Carbon Dioxide (23-29) mEq/L BUN (8-23) mg/dL Creatinine (0.70-1.30) mg/dL Est GFR ( Amer) (> 60) Est GFR (Non-Af Amer) (> 60) BUN/Creatinine Ratio (6-26) Glucose (70-105) mg/dL POC Glucose (70-99) mg/dL Calculated Osmolality (280-300) Lactic Acid 1.0 (0.5-2.2) mmol/L Calcium (8.6-10.3) mg/dL Total Bilirubin (0.3-1.0) mg/dL Direct Bilirubin (0.0-0.2) mg/dL Indirect Bilirubin (0.0-1.2) mg/dL AST (13-39) Units/L ALT (7-52) Units/L Alkaline Phosphatase (34-104) Units/L Troponin I (< 0.04) ng/mL Serum Total Protein (6.4-8.9) g/dL Albumin (3.5-5.7) g/dL Globulin (2.4-3.5) g/dL Albumin/Globulin Ratio (1.1-2.2) Urine Color (Yellow) Urine Clarity (Clear) Urine pH (5.0-8.0) pH Units Ur Specific [place] (1.010-1.025) Urine Protein (Neg-Trace) mg/dL Urine Glucose (UA) (Normal) mg/dL Urine Ketones (Negative) mg/dL Urine Blood (Negative) Urine Nitrite (Negative) Urine Bilirubin (Negative) Urine Urobilinogen (Normal) mg/dL Ur Leukocyte Esterase (Negative) Urine Microscopic RBC (0-3) per hpf Urine Microscopic WBC (0-3) per hpf Ur Squamous Epith Cells (None-Few) per lpf Urine Bacteria (None-Few) per hpf Hyaline Casts (None-Few) per lpf Ur Culture Indicated? (NO) Urine Opiates Screen (Brhuff=717) ng/mL Ur Barbiturates Screen (Kyyhtu=933) ng/mL Ur Phencyclidine Scrn (Cutoff=25) ng/mL Ur Amphetamines Screen (Ldybnm=9429) ng/mL U Benzodiazepines Scrn (Kblbls=080) ng/mL Urine Cocaine Screen (Cutoff= 300) ng/mL U Marijuana (THC) Screen (Cutoff = 50) ng/mL Ethyl Alcohol (Less than 10) mg/dL - Radiology Data Radiology results reviewed: Yes I reviewed the patient's radiology results. Chest X-Ray 09/09/17 16:04 IMPRESSION: No acute process. D/ / Krishna Almeida MD / Krishna Almeida MD Interpreting Provider: Krishna Almeida MD Head CT 09/09/17 16:05 IMPRESSION: Evidence of a late subacute infarct involving the left cerebral hemisphere, with mild mass effect, and without convincing evidence of hemorrhagic conversion. Overall, no acute abnormality identified. D/ / Grover Domínguez MD / Grover Domínguez MD Interpreting Provider: Grover Domínguez MD - EKG Data EKG attestation: Yes I reviewed and interpreted this EKG. Rate: tachycardia (107) Rhythm: A.Fib Interpretation: no acute changes TPA Checklist - LKW: 3-4.5 hrs Add. Warnings/Precautions Patient/family understanding: The patient/family members have been counseled and understood the risk, benefit , and alternatives of treatment.
[2017-09-09 17:12] LABS: ABG Base Excess 5 mEq/L (-2 to 3); ABG HCO3 30 mEq/L (21-27); ABG Oxygen Saturation 98 % (95-98); ABG PCO2 41 mmHg (35-45); ABG PH 7.47 pH Units (7.32-7.45); ABG PO2 101 mmHg (85-104); ABG TCO2 31 mEq/L (20-26)
[2017-09-09 17:26] LABS: INR 1.1
[2017-09-09 17:28] LABS: Activated Partial Thrombo Time 22.3 Seconds (26.0-36.0)
[2017-09-09 17:44] LABS: Alanine Aminotransferase 40 Units/L (7-52); Albumin 3.2 g/dL (3.5-5.7); Albumin/Globulin Ratio 0.9 (1.1-2.2); Alkaline Phosphatase 129 Units/L (34-104); Aspartate Amino Transferase 42 Units/L (13-39); BUN/Creatinine Ratio 52 (6-26); Bilirubin,Direct 0.2 mg/dL (0.0-0.2); Bilirubin,Indirect 0.4 mg/dL (0.0-1.2); Bilirubin,Total 0.6 mg/dL (0.3-1.0); Blood Urea Nitrogen 26 mg/dL (8-23); Calcium 8.6 mg/dL (8.6-10.3); Carbon Dioxide 28 mEq/L (23-29); Chloride 98 mEq/L (98-107); Ethanol < 10 mg/dL (Less than 10); Globulin 3.6 g/dL (2.4-3.5); Glucose 112 mg/dL (70-105); Osmolality,Calculated 284 (280-300); Potassium 3.9 mEq/L (3.5-5.1); Sodium 134 mEq/L (136-145); Total Protein 6.8 g/dL (6.4-8.9); eGFR For African Americans > 60 (> 60); eGFR For Non-African Americans > 60 (> 60)
[2017-09-09 17:51] LABS: Troponin I 0.05 ng/mL (< 0.04)
[2017-09-09 17:55] LABS: Bilirubin,Urine Negative (Negative); Blood,Urine Negative (Negative); Clarity,Urine Clear (Clear); Color,Urine Yellow (Yellow); Glucose,Urine (UA) Normal (Normal); Ketones,Urine Negative (Negative); Leukocyte Esterase,Urine Negative (Negative); Nitrite,Urine Negative (Negative); PH,Urine 5.5 pH Units (5.0-8.0); Protein,Urine Trace mg/dL (Neg-Trace); Specific Gravity,Urine 1.024 (1.010-1.025); Urobilinogen,Urine Normal (Normal)
[2017-09-09 17:57] LABS: Bacteria,Urine None Seen per hpf (None-Few); Hyaline Casts,Urine None Seen per lpf (None-Few); Squamous Epithelial Cell,Urine Moderate per lpf (None-Few); WBC,Urine 0-3 per hpf (0-3)
[2017-09-09 18:03] LABS: Basophils % 0.3 %; Eosinophils # 0.1 K/mcL (0.0-0.6); Eosinophils % 1.1 %; Hematocrit 32.7 % (37.5-50.1); Hemoglobin 10.4 g/dL (12.9-16.9); Immature Granulocytes % 0.3 % (0-4); Lymphocytes # 0.6 K/mcL (0.6-4.6); Lymphocytes % 9.2 %; Mean Corpuscular HGB Conc 31.8 g/dL (31.6-35.5); Mean Corpuscular Hemoglobin 32.4 pg (28.0-33.3); Mean Corpuscular Volume 101.9 fL (83.0-100.0); Mean Platelet Volume 11.3 fL (9.4-12.4); Monocytes # 0.9 K/mcL (0.0-1.3); Monocytes % 15.4 %; Neutrophils # 4.5 K/mcL (1.6-8.9); Platelet Count 183 K/mcL (140-400); Red Blood Count 3.21 M/mcL (4.19-5.50); Red Cell Distribution Width 13.2 % (11.5-14.5); Segmented Neutrophils % 73.7 %
[2017-09-09 18:17] LABS: Amphetamine Screen,Urine Negative ng/mL (Cutoff=1000); Barbiturate Screen,Urine Negative ng/mL (Cutoff=200); Benzodiazepines Screen,Urine Negative ng/mL (Cutoff=200); Cannabinoid Screen,Urine Negative ng/mL (Cutoff = 50); Cocaine Screen,Urine Negative ng/mL (Cutoff= 300); Opiate Screen,Urine Negative ng/mL (Cutoff=300); Phencyclidine Screen,Urine Negative ng/mL (Cutoff=25)
--- NOTE | 2017-09-09 19:28 | Internal Med History&Physical ---
Date of Encounter: 09/09/17 Time of Encounter: 19:17 Internal Medicine - H&P: HPI Chief complaint: AMS Admitted From: Emergency Dept Plans for Post Hospital Care: Home History of present illness: Mr. Phelps is a 77 year old male with history of hypertension, hyperlipidemia, COPD, coronary artery disease, head and neck cancer, atrial fibrillation, pacemaker/AICD, PEG tube placement, critical carotid artery stenosis, recent CVA with right sided symptoms who presents through the ED from doctor's appointment due to AMS for a week. From what I understand the patient has baseline aphasia. The patient is a resident of a nursing facility. He was here in July with right sided weakness and was diagnosed with a suspected CVA. CT head at the time was negative and MRI couldn't be done because of AICD. CTA head /neck showed critical stenosis of proximal right ICA and left common carotid artery. Vascular evaluated and was deemed not a surgical candidate. The patient is somewhat obtunded and has been like that for about a week. When he was in the surgeon's office today they felt that he was more tender than usual and sent into the ED. CT head showed a late subacute left cerebral infarct with some mild mass effect. Dr. Lemus from neuro contacted and is not a TPA candidate due to symptoms of about a week and findings of CT head. Last time patient was here, he was discharged on lovenox 60 mg BID. There was enough to try to contact family but no one responded. No reported fever, chills, nausea, vomiting, chest pain, shortness of breath, abdominal pain, diarrhea, constipation, urinary symptoms, sensory symptom. Past Med Surg Social Fam HX - Past Medical History Medical history: arthritis, atrial fibrillation, cancer, COPD, coronary artery disease, GERD, hypertension, myocardial infarction, other Additional medical history: anemia, thrombocytopenia, \. lung cancer Psychiatric history: no psych history - Past Surgical History Surgical History: cancer surgery (Left radical neck dissection with what appears to be a pectoralis major flap as well as permanent tracheostomy and permanent G-tube.), orthopedic, other, pacemaker/AICD, tracheostomy, other Additional surgical history: STOMA TO NECK. G-TUBE. Left jaw deformity ( etiology unknown) - Social History Smoking Status: Former smoker Smokeless Tobacco Status: No Alcohol use: none Drug use: none Internal Medicine - H&P: Meds Enoxaparin [Lovenox] 60 mg SQ Q12HR #60 syringe 08/01/17 [Rx] Pantoprazole [Protonix] 40 mg IVP DAILY #30 vial 08/01/17 [Rx] Metoprolol [Lopressor] 2.5 mg IVP Q12H 08/06/17 [History] Morphine Oral CONC [Roxanol] 0.5 ml PO Q1H PRN 08/06/17 [History] Ondansetron ODT [Zofran ODT] 4 mg SL Q6HR 08/06/17 [History] Clinimix E 5%-20% SOLUTION [Clinimix E 5%-20% Solution] 10 ml IVC AD 08/07/17 [ History] Fat Emulsions [Intralipid 20%] 250 ml IV MOWEFR 09/09/17 [History] Levothyroxine Sodium 75 mg GTUBE DAILY 09/09/17 [History] cefTRIAXone [Rocephin] 1,000 mg IV DAILY 09/09/17 [History] 3 Allergy/AdvReac Type Severity Reaction Status Date / Time No Known Allergies Allergy Verified 07/29/17 14:29 All Systems PM: A 10-system review of systems was performed and is negative for pertinent findings except as documented above in the HPI. Review of systems: All systems reviewed are negative except for as mentioned above - Constitutional Vitals: Temp Pulse Resp BP Pulse Ox 99.5 F 117 24 143/107 99 09/09/17 15:44 09/09/17 19:10 09/09/17 19:10 09/09/17 19:10 09/09/17 19:10 Exam: GEN: NAD HEENT: AT, NC, No cyanosis, oral mucosa is moist, No JVD Lymphatics: No lymphadenoapthy Eyes: Extrocular muscles intact, anicteric CVS: Tachycardic. S1, S2, No m/r/g RESP: Coarse breath sounds. ABD: Soft, NT, ND, +BS EXT: No edema, No rashes, 2+ DP NEURO: Patient is aphasic he has his eyes open. He moves extremities spontaneously. He is not following commands. Internal Med - H&P Results - Labs CBC & Chem 7: 09/09/17 17:38 09/09/17 17:07 Labs: Short CBC 09/09/17 Range/Units 17:38 WBC 6.1 (4.3-11.1) K/mcL Hgb 10.4 L (12.9-16.9) g/dL Hct 32.7 L (37.5-50.1) % Plt Count 183 (140-400) K/mcL Neutrophils # 4.5 (1.6-8.9) K/mcL BMP 09/09/17 17:07 Sodium 134 L Potassium 3.9 Chloride 98 Carbon Dioxide 28 BUN 26 H Creatinine 0.50 L Glucose 112 H Calcium 8.6 Cardiac Enzymes 09/09/17 Range/Units 17:07 Troponin I 0.05 H* (< 0.04) ng/mL Liver Function 09/09/17 Range/Units 17:07 Total Bilirubin 0.6 (0.3-1.0) mg/dL Direct Bilirubin 0.2 (0.0-0.2) mg/dL AST 42 H (13-39) Units/L ALT 40 (7-52) Units/L Alkaline Phosphatase 129 H (34-104) Units/L Albumin 3.2 L (3.5-5.7) g/dL Urine 09/09/17 Range/Units 17:30 Urine Color Yellow (Yellow) Urine Clarity Clear (Clear) Urine pH 5.5 (5.0-8.0) pH Units Ur Specific [place] 1.024 (1.010-1.025) Urine Protein Trace (Neg-Trace) mg/dL Urine Glucose (UA) Normal (Normal) mg/dL - ABG Interpretation ABG results: 09/09/17 17:06 ABG pH 7.47 H ABG pCO2 41 ABG pO2 101 ABG HCO3 30 H ABG Total CO2 31 H ABG O2 Saturation 98 ABG Base Excess 5 H - Impressions ITS Impressions Chest X-Ray 09/09/17 16:04 IMPRESSION: No acute process. D/ / Krishna Almeida MD / Krishna Almeida MD Interpreting Provider: Krishna Almeida MD Head CT 09/09/17 16:05 IMPRESSION: Evidence of a late subacute infarct involving the left cerebral hemisphere, with mild mass effect, and without convincing evidence of hemorrhagic conversion. Overall, no acute abnormality identified. D/ / Grover Domínguez MD / Grover Domínguez MD Interpreting Provider: Grover Domínguez MD - Assessment and plan (1) Encephalopathy acute Current Visit: Yes Status: Acute Assessment and plan: Unsure exactly what his baseline is but reportedly he is aphasic baseline. CT head with findings as mentioned below. Unsure if this is a new stroke but the patient has a significant risk factor for recurrence of his symptoms from previous to his significant carotid artery stenosis. Patient also takes morphine chronically. Neurology is consulted. We will check TSH. (2) CVA (cerebral vascular accident) Current Visit: No Status: Suspected Assessment and plan: Patient with a recent CVA for which she is on Lovenox therapeutic dose. CT head showed subacute infarct involving the left cerebral hemisphere with mild mass effect. Neurology to see. Continue Lovenox for now. Telemetry. Qualifiers: CVA mechanism: unspecified Qualified Code(s): I63.9 - Cerebral infarction, unspecified (3) Elevated troponin Current Visit: Yes Status: Acute Assessment and plan: We will trend cardiac enzymes. EKG with no ST or T-wave changes that are concerning. (4) Hypothyroid Current Visit: No Status: Chronic Assessment and plan: Continue with IV Synthroid. Check TSH. Qualifiers: Hypothyroidism type: unspecified Qualified Code(s): E03.9 - Hypothyroidism , unspecified (5) Carotid stenosis Current Visit: No Status: Acute Assessment and plan: As described in history of present illness. Not a surgical candidate. Qualifiers: Laterality: bilateral Qualified Code(s): I65.23 - Occlusion and stenosis of bilateral carotid arteries (6) History of laryngeal cancer Current Visit: No Status: Acute Assessment and plan: I do not believe the patient is on current treatment. He status post surgery. Has PEG tube for which she receives TPN through. (7) DVT prophylaxis Current Visit: No Status: Acute Assessment and plan: Patient is on therapeutic Lovenox - Time Spent With Patient Total time spent is greater than 50% in coordination of care (as documented) at patient's floor/unit and/or counseling patient:
[2017-09-09] MEDS ORDERED: Acetaminophen 325 MG TABLET PO PRN (19:29)
[2017-09-09] MEDS ORDERED: Naloxone 0.4 MG/ML INJ IVP PRN (19:29)
[2017-09-09] MEDS ORDERED: MORPHINE PO PRN (19:30)
[2017-09-09] MEDS: *HR* Metoprolol 5 MG/5 ML VIAL IVP SCH (21:01)
[2017-09-10] MEDS ORDERED: *HR* Metoprolol 5 MG/5 ML VIAL IVP STA (02:11)
[2017-09-10] MEDS ORDERED: *HR* Enoxaparin 60 MG/0.6 ML SYRINGE SQ SCH (06:00)
[2017-09-10 06:11] LABS: Basophils % 0.4 %; Eosinophils % 0.4 %; Hematocrit 32.7 % (37.5-50.1); Hemoglobin 10.7 g/dL (12.9-16.9); Immature Granulocytes % 0.2 % (0-4); Lymphocytes # 0.4 K/mcL (0.6-4.6); Lymphocytes % 7.4 %; Mean Corpuscular HGB Conc 32.7 g/dL (31.6-35.5); Mean Corpuscular Hemoglobin 33.5 pg (28.0-33.3); Mean Corpuscular Volume 102.5 fL (83.0-100.0); Mean Platelet Volume 11.9 fL (9.4-12.4); Monocytes # 0.7 K/mcL (0.0-1.3); Monocytes % 11.7 %; Neutrophils # 4.4 K/mcL (1.6-8.9); Platelet Count 180 K/mcL (140-400); Red Blood Count 3.19 M/mcL (4.19-5.50); Red Cell Distribution Width 13.1 % (11.5-14.5); Segmented Neutrophils % 79.9 %
[2017-09-10 06:28] LABS: BUN/Creatinine Ratio 49 (6-26); Blood Urea Nitrogen 26 mg/dL (8-23); Calcium 8.6 mg/dL (8.6-10.3); Carbon Dioxide 29 mEq/L (23-29); Chloride 98 mEq/L (98-107); Glucose 98 mg/dL (70-105); Osmolality,Calculated 287 (280-300); Potassium 4.3 mEq/L (3.5-5.1); Sodium 136 mEq/L (136-145); eGFR For African Americans > 60 (> 60); eGFR For Non-African Americans > 60 (> 60)
[2017-09-10 06:42] LABS: Thyroid Stimulating Hormone 6.532 mcIU/mL (0.340-5.600)
[2017-09-10] MEDS: Pantoprazole 40 MG VIAL IVP SCH (08:19)
[2017-09-10] MEDS: Levothyroxine Sodium 100 MCG VIAL IVP SCH (08:19)
[2017-09-10] MEDS: *HR* Metoprolol 5 MG/5 ML VIAL IVP SCH ×2 (08:19→20:26)
--- NOTE | 2017-09-10 08:37 | Neurology - Consult Note ---
Date of Encounter: 09/10/17 Time of Encounter: 08:37 Assessment and Plan (1) CVA (cerebral vascular accident) Current Visit: No Status: Acute Patient with subacute CVA on top of prior CVA one month ago in similar distribution. CT head shows: "Evidence of a late subacute infarct involving the left cerebral hemisphere, with mild mass effect, and without convincing evidence of hemorrhagic conversion." Prior CTA head/neck at time of prior CVA showed: " Critical stenoses of the proximal right cervical ICA and the left common carotid artery." It was documented that patient was to be discharged home on ASA per records, but ASA not on his list of discharge medications. Patient appears to have worse R sided deficits and worse mental status compared to prior CVA one month ago. Recommendations: Repeat CTA neck Check ECHO Hold off on antiplatelets for now due to size of stroke and risk of hemorrhagic conversion. terminal operator patient will need to be on antiplatlet therapy as he is not a surgical candidate to address Carotid stenoses. PT/OT consult Qualifiers: CVA mechanism: unspecified Qualified Code(s): I63.9 - Cerebral infarction, unspecified History of Present Illness HPI: Mr. Phelps is a 77 year old male c PMHx of CVA, atrial fibrillation, head and neck cancer s/p reconstruction and ostomy of neck, PEG, COPD, coronary artery disease, GERD, hypertension, myocardial infarction, AICD/Pacemaker, anemia, thrombocytopenia, lung cancer reports to [facility] for AMS sent in from general surgery office. Patient was seen in General surgery out patient clinic 1 week ago and found to be obtunded. Patient was suppose to be taken to the ED at that time, but for unclear reasons was taken back to his SNF instead. Patient followed up with surgery again yesterday and was found to still be obtunded. He was sent to ED for evaluation. Patient was unable to follow directions due AMS for the ED to complete an NIHSS. Patient's CT head showed: "Evidence of a late subacute infarct involving the left cerebral hemisphere, with mild mass effect, and without convincing evidence of hemorrhagic conversion." They estimated stroke may be a week old. Patient is aphasic at baseline but able to follow commands. Patient was admitted concern for stroke on 08/06/17 with R sided weakness. At that time CT head was unremarkable. MRI was unable to be performed due to AICD/Pacemaker. Repeat CT head never performed, but treated for presumed stroke. Based on assessment at that time patient had strength 2/5 RUE, except accounts administrator 3/5. 4/5 LUE. 3/5 RLE, except plantar/dorsiflexion 4/5. 4/5 LLE. Patient was alert and able to follow commands. Patient had CTA head and neck which showed: "Critical stenoses of the proximal right cervical ICA and the left common carotid artery." Patient was evaluated by vascular surgery and deemed not to be a candidate for intervention. Past Med Surg Social Fam HX - Past Medical History Medical history: arthritis, atrial fibrillation, cancer, COPD, coronary artery disease, GERD, hypertension, myocardial infarction, other Additional medical history: anemia, thrombocytopenia, \\. lung cancer Psychiatric history: no psych history - Past Surgical History Surgical History: cancer surgery, orthopedic, other, pacemaker/AICD, tracheostomy, other Additional surgical history: STOMA TO NECK. G-TUBE. Left jaw deformity ( etiology unknown) - Social History Smoking Status: Former smoker Smokeless Tobacco Status: No Alcohol use: none Drug use: none Medications and Allergies Enoxaparin [Lovenox] 60 mg SQ Q12HR #60 syringe 08/01/17 [Rx] Pantoprazole [Protonix] 40 mg IVP DAILY #30 vial 08/01/17 [Rx] Metoprolol [Lopressor] 2.5 mg IVP Q12H 08/06/17 [History] Morphine Oral CONC [Roxanol] 0.5 ml PO Q1H PRN 08/06/17 [History] Ondansetron ODT [Zofran ODT] 4 mg SL Q6HR 08/06/17 [History] Clinimix E 5%-20% SOLUTION [Clinimix E 5%-20% Solution] 10 ml IVC AD 08/07/17 [ History] Fat Emulsions [Intralipid 20%] 250 ml IV MOWEFR 09/09/17 [History] Levothyroxine Sodium 75 mg GTUBE DAILY 09/09/17 [History] cefTRIAXone [Rocephin] 1,000 mg IV DAILY 09/09/17 [History] 3 Allergy/AdvReac Type Severity Reaction Status Date / Time No Known Allergies Allergy Verified 07/29/17 14:29 ROS unobtainable: other (tracheostomy, chronic aphashia. ) All Systems: The remainder of the systems were reviewed and are negative Physical Examination - Vital Signs Vital Signs: Initial Vital Signs Temp Pulse Resp BP Pulse Ox 99.5 F 129 26 121/83 97 09/09/17 15:44 09/09/17 15:44 09/09/17 15:44 09/09/17 15:44 09/09/17 15:44 - Constitutional General appearance: chronically ill - Neurologic Detailed motor examination: other (patient able to follow some but not all commands. Patient aphasic at baseline secondary to head and neck cancer. Patient with facial asymetry at baseline secondary to head and neck cancer and reconstructive surgery. Patient moves LUE and LLE to command. Patient does not move RUE or RLE to command. Patient does withdraw to painful stimuli in the RUE and RLE. Patient on Oxymask in the room so not able to evaluate oropharynx.) Reflexes: Biceps: 2+, Patella: 2+ Mental Status Examination: awake, alert Cranial nerve examination: PERRL, EOMI Results - Laboratory Findings CBC and BMP: 09/10/17 04:00 09/10/17 04:00 Abnormal lab findings: Abnormal lab results RBC 3.19 M/mcL (4.19-5.50) L 09/10/17 04:00 Hgb 10.7 g/dL (12.9-16.9) L 09/10/17 04:00 Hct 32.7 % (37.5-50.1) L 09/10/17 04:00 MCV 102.5 fL (83.0-100.0) H 09/10/17 04:00 MCH 33.5 pg (28.0-33.3) H 09/10/17 04:00 Lymphocytes # 0.4 K/mcL (0.6-4.6) L 09/10/17 04:00 APTT 22.3 Seconds (26.0-36.0) L 09/09/17 17:07 ABG pH 7.47 pH Units (7.32-7.45) H 09/09/17 17:06 ABG HCO3 30 mEq/L (21-27) H 09/09/17 17:06 ABG Total CO2 31 mEq/L (20-26) H 09/09/17 17:06 ABG Base Excess 5 mEq/L (-2 to 3) H 09/09/17 17:06 BUN 26 mg/dL (8-23) H 09/10/17 04:00 Creatinine 0.53 mg/dL (0.70-1.30) L 09/10/17 04:00 BUN/Creatinine Ratio 49 (6-26) H 09/10/17 04:00 POC Glucose 128 mg/dL (70-99) H 09/09/17 16:06 AST 42 Units/L (13-39) H 09/09/17 17:07 Alkaline Phosphatase 129 Units/L (34-104) H 09/09/17 17:07 Troponin I 0.05 ng/mL (< 0.04) H* 09/10/17 05:00 Albumin 3.2 g/dL (3.5-5.7) L 09/09/17 17:07 Globulin 3.6 g/dL (2.4-3.5) H 09/09/17 17:07 Albumin/Globulin Ratio 0.9 (1.1-2.2) L 09/09/17 17:07 TSH 6.532 mcIU/mL (0.340-5.600) H 09/10/17 04:00 Urine Microscopic RBC 3-5 per hpf (0-3) H 09/09/17 17:30 Ur Squamous Epith Cells Moderate per lpf (None-Few) H 09/09/17 17:30 Consult Discharge Plan - Plan Referrals: Abdi Soto, QUALITY LAB TECHNICIAN [Primary Care Provider] -
[2017-09-10] MEDS ORDERED: D10% in Water 500 ML IVC PRN (11:30)
[2017-09-10] MEDS ORDERED: Isovue-370 500 ML INFUS..BTL IV ONE (13:02)
[2017-09-10] MEDS ORDERED: Clinimix E 5%-20% SOLUTION 2,000 ML with MVI, adult with vitamin K 10 ML IVC SCH (17:00)
--- NOTE | 2017-09-10 17:59 | Internal Med Progress Note ---
Date of Encounter: 09/10/17 Time of Encounter: 16:00 - Assessment and plan (1) CVA (cerebral vascular accident) Current Visit: No Status: Acute Assessment and plan: Recent CVA with right sided symptoms who presents through the ED from doctor's appointment due to AMS for a week. From what I understand the patient has baseline aphasia. The patient is a resident of a nursing facility. He was here in July 2017 with right sided weakness and was diagnosed with a suspected CVA. CT head at the time was negative and MRI couldn't be done because of AICD. CTA head/neck showed critical stenosis of proximal right ICA and left common carotid artery. Vascular evaluated and was deemed not a surgical candidate. The patient is somewhat obtunded and has been like that for about a week. When he was in the surgeon's office today they felt that he was more tender than usual and sent into the ED. CT head showed a late subacute left cerebral infarct with some mild mass effect. Dr. Lemus from neuro contacted and is not a TPA candidate due to symptoms of about a week and findings of CT head. Last time patient was here, he was discharged on lovenox 60 mg BID. There was enough to try to contact family but no one responded. Chest x-ray ruled out pneumonia although he has copious stoma secretions. Urinalysis ruled out UTI. Plan Per neurology recommendations plan is to repeat a CT of the neck, obtain echo, hold off on antiplatelet agents due to risk of hemorrhagic conversion. Long- term patient will be on antiplatelet agents due to carotid stenosis. We will hold off therapeutic Lovenox for atrial fibrillation due to risk of bleeding. Prognosis is poor considering his high risk for aspiration and respiratory failure. There is no family available for discussion. Patient is DNR CCA DNI. Qualifiers: CVA mechanism: unspecified Qualified Code(s): I63.9 - Cerebral infarction, unspecified (2) Hypothyroid Current Visit: No Status: Chronic Assessment and plan: Continue with IV Synthroid. Check TSH. Qualifiers: Hypothyroidism type: unspecified Qualified Code(s): E03.9 - Hypothyroidism , unspecified (3) Carotid stenosis Current Visit: No Status: Acute Assessment and plan: Not a surgical candidate. Qualifiers: Laterality: bilateral Qualified Code(s): I65.23 - Occlusion and stenosis of bilateral carotid arteries (4) History of laryngeal cancer Current Visit: No Status: Acute Assessment and plan: Tracheostomy and PEG. (5) Elevated troponin Current Visit: Yes Status: Acute Assessment and plan: EKG with no ST or T-wave changes that are concerning. (6) DVT prophylaxis Current Visit: No Status: Acute Assessment and plan: DVT prophylaxis with heparin - Time Spent With Patient Total time spent is greater than 50% in coordination of care (as documented) at patient's floor/unit and/or counseling patient: 25 - 35 minutes - Subjective Interval history: Patient nonverbal. History is limited. Looks uncomfortable. - Constitutional Vitals: Temp Pulse Resp BP Pulse Ox 98.6 F 99 14 130/92 96 09/10/17 16:03 09/10/17 16:03 09/10/17 16:03 09/10/17 16:03 09/10/17 16:03 Exam: Physical exam Gen: Uncomfortable, laying in bed, in no visible distress HEENT: Normocephalic, atraumatic. No conjunctival icterus. Moist oral mucosa. Neck: Copious secretions at the stoma Lungs: Bilateral coarse crackles Heart: Distant S1-S2, no murmurs rubs or gallops Abdomen: Normoactive bowel sounds, no guarding rigidity or tenderness, PEG Extremities: No edema clubbing or cyanosis Neuro: Alert awake does not move the right side upper extremity and lower extremity moves both left upper and lower extremity, aphasia, limited exam Skin: No skin lesions Internal Medicine: Result - Labs CBC & Chem 7: 09/10/17 04:00 09/10/17 04:00 Labs: Short CBC 09/10/17 Range/Units 04:00 WBC 5.6 (4.3-11.1) K/mcL Hgb 10.7 L (12.9-16.9) g/dL Hct 32.7 L (37.5-50.1) % Plt Count 180 (140-400) K/mcL Neutrophils # 4.4 (1.6-8.9) K/mcL BMP 09/10/17 04:00 Sodium 136 Potassium 4.3 Chloride 98 Carbon Dioxide 29 BUN 26 H Creatinine 0.53 L Glucose 98 Calcium 8.6 Cardiac Enzymes 09/09/17 09/10/17 Range/Units 22:50 05:00 Troponin I 0.05 H* 0.05 H* (< 0.04) ng/mL - ABG Interpretation ABG results: ABG ABG pH 7.47 pH Units (7.32-7.45) H 09/09/17 17:06 ABG pCO2 41 mmHg (35-45) 09/09/17 17:06 ABG pO2 101 mmHg (85-104) 09/09/17 17:06 ABG O2 Saturation 98 % (95-98) 09/09/17 17:06 PT/INR, D-dimer PT 12.0 Seconds (9.4-12.1) 09/09/17 17:07 Consult Discharge Plan - Plan Referrals: Abdi Soto, JOB PUTTER UP AND TICKET PREPARER [Primary Care Provider] -
--- NOTE | 2017-09-10 19:31 | Electrocardiograph Report ---
[place] [id number] Test Date: 2017-09-09 Pat Name: Raul Phelps Department: 103 Room: [facility] Gender: M Lasting Machine Operator: WIL : 1940 Requested By: Juan Manuel Treadwell Order Number: [id number] Reading MD: Vasquez Taylor Measurements Intervals [place] Rate: 107 P: ID: 0 QRS: -1 QRSD: 94 T: 0 QT: 328 QTc: 391 Interpretive Statements ATRIAL FIBRILLATION WITH RAPID VENTRICULAR RESPONSE LOW QRS VOLTAGE IN EXTREMITY LEADS Electronically Signed On 09-10-2017 19:30:07 EDT by Vasquez Taylor
--- NOTE | 2017-09-10 20:02 | Electrocardiograph Report ---
[place] [id number] Test Date: 2017-09-10 Pat Name: Raul Phelps Department: 111 Room: 2N4 Gender: M Cook Chief: : 1940 Requested By: Bib Muñiz Order Number: [id number] Reading MD: Vasquez Taylor Measurements Intervals [place] Rate: 128 P: MT: 0 QRS: -9 QRSD: 91 T: 4 QT: 302 QTc: 378 Interpretive Statements ATRIAL FIBRILLATION WITH RAPID VENTRICULAR RESPONSE POSSIBLE INFERIOR MYOCARDIAL INFARCTION, PROBABLY OLD Electronically Signed On 09-10-2017 20:01:10 EDT by Vasquez Taylor
[2017-09-10] MEDS: *HR* Heparin 5,000 UNIT/ML VIAL SQ SCH (20:27)
[2017-09-11 05:04] LABS: Basophils % 0.3 %; Eosinophils % 0.5 %; Hemoglobin 11.3 g/dL (12.9-16.9); Immature Granulocytes % 0.4 % (0-4); Lymphocytes # 0.5 K/mcL (0.6-4.6); Lymphocytes % 6.8 %; Mean Corpuscular HGB Conc 32.3 g/dL (31.6-35.5); Mean Corpuscular Hemoglobin 32.8 pg (28.0-33.3); Mean Corpuscular Volume 101.4 fL (83.0-100.0); Mean Platelet Volume 11.5 fL (9.4-12.4); Monocytes # 0.9 K/mcL (0.0-1.3); Neutrophils # 5.9 K/mcL (1.6-8.9); Platelet Count 183 K/mcL (140-400); Red Blood Count 3.45 M/mcL (4.19-5.50); Red Cell Distribution Width 12.8 % (11.5-14.5)
[2017-09-11 05:25] LABS: BUN/Creatinine Ratio 46 (6-26); Blood Urea Nitrogen 23 mg/dL (8-23); Calcium 8.5 mg/dL (8.6-10.3); Carbon Dioxide 30 mEq/L (23-29); Chloride 101 mEq/L (98-107); Glucose 95 mg/dL (70-105); Osmolality,Calculated 287 (280-300); Phosphorous 3.8 mg/dL (2.7-4.5); Potassium 4.1 mEq/L (3.5-5.1); Sodium 137 mEq/L (136-145); Triglycerides 53 mg/dL (< 150); eGFR For African Americans > 60 (> 60); eGFR For Non-African Americans > 60 (> 60)
[2017-09-11] MEDS: *HR* Heparin 5,000 UNIT/ML VIAL SQ SCH ×3 (05:50→22:00)
[2017-09-11 08:04] LABS: Acinetobacter baumannii by PCR Not Detected (Not Detect); Candida albicans by PCR Not Detected (Not Detect); Candida glabrata by PCR Not Detected (Not Detect); Candida krusei by PCR Not Detected (Not Detect); Candida parapsilosis by PCR Not Detected (Not Detect); Candida tropicalis by PCR Not Detected (Not Detect); Enterococcus by PCR Not Detected (Not Detect); Escherichia coli by PCR Not Detected (Not Detect); Klebsiella oxytoca by PCR Not Detected (Not Detect); Klebsiella pneumoniae by PCR Not Detected (Not Detect); Pseudomonas aeruginosa by PCR Not Detected (Not Detect); Serratia marcescens by PCR Not Detected (Not Detect); Staphylococcus aureus by PCR Not Detected (Not Detect); Streptococcus agalactiae(B)PCR Not Detected (Not Detect); Streptococcus by PCR Not Detected (Not Detect); Streptococcus pneumoniae PCR Not Detected (Not Detect); Streptococcus pyogenes (A) PCR Not Detected (Not Detect); mecA Methicillin-Resist Gene ***DETECTED*** (Not Detect)
[2017-09-11] MEDS: Levothyroxine Sodium 100 MCG VIAL IVP SCH (09:27)
[2017-09-11] MEDS: *HR* Metoprolol 5 MG/5 ML VIAL IVP SCH ×2 (09:27→20:36)
[2017-09-11] MEDS: Pantoprazole 40 MG VIAL IVP SCH (09:27)
--- NOTE | 2017-09-11 09:37 | Internal Med Progress Note ---
Date of Encounter: 09/11/17 Time of Encounter: 09:30 - Assessment and plan (1) CVA (cerebral vascular accident) Current Visit: No Status: Acute Assessment and plan: Recent CVA with right sided symptoms who presents through the ED from doctor's appointment due to AMS for a week. From what I understand the patient has baseline aphasia. The patient is a resident of a nursing facility. He was here in July 2017 with right sided weakness and was diagnosed with a suspected CVA. CT head at the time was negative and MRI couldn't be done because of AICD. CTA head/neck showed critical stenosis of proximal right ICA and left common carotid artery. Vascular evaluated and was deemed not a surgical candidate. The patient is somewhat obtunded and has been like that for about a week. When he was in the surgeon's office today they felt that he was more tender than usual and sent into the ED. CT head showed a late subacute left cerebral infarct with some mild mass effect. Dr. Lemus from neuro contacted and is not a TPA candidate due to symptoms of about a week and findings of CT head. Last time patient was here, he was discharged on lovenox 60 mg BID. There was enough to try to contact family but no one responded. Chest x-ray ruled out pneumonia although he has copious stoma secretions. Urinalysis ruled out UTI. Plan 09/10 Per neurology recommendations plan is to repeat a CT of the neck, obtain echo, hold off on antiplatelet agents due to risk of hemorrhagic conversion. Long- term patient will be on antiplatelet agents due to carotid stenosis. We will hold off therapeutic Lovenox for atrial fibrillation due to risk of bleeding. Prognosis is poor considering his high risk for aspiration and respiratory failure. There is no family available for discussion. Patient is DNR CCA DNI. 09/11 Consult palliative care Qualifiers: CVA mechanism: unspecified Qualified Code(s): I63.9 - Cerebral infarction, unspecified (2) Hypothyroid Current Visit: No Status: Chronic Assessment and plan: Continue with IV Synthroid. Check TSH. Qualifiers: Hypothyroidism type: unspecified Qualified Code(s): E03.9 - Hypothyroidism , unspecified (3) Carotid stenosis Current Visit: No Status: Acute Assessment and plan: Not a surgical candidate. Qualifiers: Laterality: bilateral Qualified Code(s): I65.23 - Occlusion and stenosis of bilateral carotid arteries (4) History of laryngeal cancer Current Visit: No Status: Acute Assessment and plan: Tracheostomy and PEG. (5) Elevated troponin Current Visit: Yes Status: Acute Assessment and plan: EKG with no ST or T-wave changes that are concerning. (6) DVT prophylaxis Current Visit: No Status: Acute Assessment and plan: DVT prophylaxis with heparin (7) Bacteremia Current Visit: Yes Status: Acute Assessment and plan: 1 of 2 sets of cultures showed Staphylococcus, MDRO. Suspect skin radha contamination. Plan Repeat blood cultures. Considering patient is afebrile, normotensive, does not have a elevated white count I will hold off antibiotics at this time. - Time Spent With Patient Total time spent is greater than 50% in coordination of care (as documented) at patient's floor/unit and/or counseling patient: 25 - 35 minutes - Subjective Interval history: Patient nonverbal. History is limited. Looks uncomfortable. - Constitutional Vitals: Temp Pulse Resp BP Pulse Ox 98.3 F 97 21 109/67 4 09/11/17 07:16 09/11/17 07:16 09/11/17 07:16 09/11/17 07:16 09/11/17 07:16 Exam: Physical exam Gen: Uncomfortable, laying in bed, in no visible distress HEENT: Normocephalic, atraumatic. No conjunctival icterus. Moist oral mucosa. Neck: Copious secretions at the stoma Lungs: Bilateral coarse crackles Heart: Distant S1-S2, no murmurs rubs or gallops Abdomen: Normoactive bowel sounds, no guarding rigidity or tenderness, PEG Extremities: No edema clubbing or cyanosis Neuro: Alert awake does not move the right side upper extremity and lower extremity moves both left upper and lower extremity, aphasia, limited exam Skin: No skin lesions Internal Medicine: Result - Labs CBC & Chem 7: 09/11/17 04:44 09/11/17 04:44 Labs: Short CBC 09/11/17 Range/Units 04:44 WBC 7.3 (4.3-11.1) K/mcL Hgb 11.3 L (12.9-16.9) g/dL Hct 35.0 L (37.5-50.1) % Plt Count 183 (140-400) K/mcL Neutrophils # 5.9 (1.6-8.9) K/mcL BMP 09/11/17 04:44 Sodium 137 Potassium 4.1 Chloride 101 Carbon Dioxide 30 H BUN 23 Creatinine 0.50 L Glucose 95 Calcium 8.5 L - ABG Interpretation ABG results: ABG ABG pH 7.47 pH Units (7.32-7.45) H 09/09/17 17:06 ABG pCO2 41 mmHg (35-45) 09/09/17 17:06 ABG pO2 101 mmHg (85-104) 09/09/17 17:06 ABG O2 Saturation 98 % (95-98) 09/09/17 17:06 PT/INR, D-dimer PT 12.0 Seconds (9.4-12.1) 09/09/17 17:07 Consult Discharge Plan - Plan Referrals: Abdi Soto, ASSURANCE SENIOR [Primary Care Provider] -
[2017-09-11] MEDS ORDERED: D10% in Water 500 ML IVC PRN (11:40)
--- NOTE | 2017-09-11 12:35 | Palliative - Consult Note ---
Date of Encounter: 09/11/17 Time of Encounter: 11:45 - Assessment and Plan (1) Debility Current Visit: Yes Status: Acute Assessment and plan: Patient poor rehab candidate, will require transfer back to [facility]. (2) Counseling regarding advanced care planning and goals of care Current Visit: Yes Status: Acute Assessment and plan: Patient with no family present - unable to reach friend James by number on chart. Spoke with [place], who states they have no POA on file and pt is own decision maker. Stated a family member was up to see him from [place] but the facility failed to get her name or contact info. I was able to find a document in [facility] system from 2013 that stated a different # for James Shaver ([id number]) and I was able to get him at this number. He was unaware pt was in hospital and I updated him on clinical status. Stated pt has a sister, Herlinda Messer in [place] that has been considering transferring him to facility there. We will meet with James tomorrow at 1000, asked him to bring a copy of his POA. He will try and contact Herlinda this evening and see if she would be available to us to call and conference with her over speakerphone as well. D/W primary nurse Tanvi. Will f/u in am. 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 Phelps is a 77 year old unfortunate male with a history of laryngeal cancer and CVA in July, who was sent to ER from physician's office, where he was found to be altered from baseline mental status. He has been resident of [facility]. Has PEG - however pt developed fistula, and was not a surgical candidate for repair, so he has been maintained on TPN at the facility. Workup on arrival to hospital revealed a new left cerebral infarct with mass effect- consultation with neurology was completed. MRI has not been able to be performed r/t AICD. He has history of critical ICA/CCA stenosis, but not a surgical candidate. Neurology recommended supportive management. Pertinent medical history includes:hypertension, hyperlipidemia, COPD, coronary artery disease, head and neck cancer, atrial fibrillation, pacemaker/AICD, PEG tube placement, critical carotid artery stenosis. There is no family at the bedside, so most of information obtained from ECF and current record. Upon my visit, eyes are open, cannot vocalize. Told trach stoma with moist light green secretions. Appears in no distress. Follows a few simple commands. Review of old records include DNRCCA state form that appears patient signed last month. CC: Chance Jones Past Med Surg Social Fam HX - Past Medical History Medical history: arthritis, atrial fibrillation, cancer, COPD, coronary artery disease, GERD, hypertension, myocardial infarction, other Additional medical history: anemia, thrombocytopenia, \. lung cancer Psychiatric history: no psych history - Past Surgical History Surgical History: cancer surgery, orthopedic, other, pacemaker/AICD, tracheostomy, other Additional surgical history: STOMA TO NECK. G-TUBE. Left jaw deformity ( etiology unknown) - Social History Smoking Status: Former smoker Smokeless Tobacco Status: No Alcohol use: none Drug use: none Medications and Allergies Enoxaparin [Lovenox] 60 mg SQ Q12HR #60 syringe 08/01/17 [Rx] Pantoprazole [Protonix] 40 mg IVP DAILY #30 vial 08/01/17 [Rx] Metoprolol [Lopressor] 2.5 mg IVP Q12H 08/06/17 [History] Morphine Oral CONC [Roxanol] 0.5 ml PO Q1H PRN 08/06/17 [History] Ondansetron ODT [Zofran ODT] 4 mg SL Q6HR 08/06/17 [History] Clinimix E 5%-20% SOLUTION [Clinimix E 5%-20% Solution] 10 ml IVC AD 08/07/17 [ History] Fat Emulsions [Intralipid 20%] 250 ml IV MOWEFR 09/09/17 [History] cefTRIAXone [Rocephin] 1,000 mg IV DAILY 09/09/17 [History] Levothyroxine Sodium [Synthroid] 75 mcg IV DAILY 09/10/17 [History] 3 Allergy/AdvReac Type Severity Reaction Status Date / Time No Known Allergies Allergy Verified 07/29/17 14:29 ROS unobtainable: other (aphasic) Palliative Care-Exam - Constitutional Vitals: Temp Pulse Resp BP Pulse Ox 97.4 F L 89 16 122/62 98 09/11/17 11:40 09/11/17 11:40 09/11/17 11:40 09/11/17 11:40 09/11/17 11:40 General appearance: Present: no acute distress - ENT Additional comments: Old trach stoma with moist secretions - Respiratory Additional comments: scattered rhonchi thoughout anterior chest, old trach stoma - Cardiovascular Cardiovascular exam: Present: irregular rhythm - GI/Abdominal Exam GI/Abdominal exam: Present: normal bowel sounds, soft additional comments: Old PEG with small amount yellow drainage on dressing. Clamped off. - Extremities Exam Extremities exam: Present: normal capillary refill - Neurological Exam Additional comments: Patient aphasic - can squeeze left hand slightly upon command and can wiggle left toes. Rt arm flaccid. - Skin Skin exam: Present: dry, pallor, warm Internal Medicine - CN: Reslt - Labs CBC & Chem 7: 09/11/17 04:44 09/11/17 04:44 Labs: Short CBC 09/11/17 Range/Units 04:44 WBC 7.3 (4.3-11.1) K/mcL Hgb 11.3 L (12.9-16.9) g/dL Hct 35.0 L (37.5-50.1) % Plt Count 183 (140-400) K/mcL Neutrophils # 5.9 (1.6-8.9) K/mcL BMP 09/11/17 04:44 Sodium 137 Potassium 4.1 Chloride 101 Carbon Dioxide 30 H BUN 23 Creatinine 0.50 L Glucose 95 Calcium 8.5 L - ABG Interpretation ABG results: ABG ABG pH 7.47 pH Units (7.32-7.45) H 09/09/17 17:06 ABG pCO2 41 mmHg (35-45) 09/09/17 17:06 ABG pO2 101 mmHg (85-104) 09/09/17 17:06 ABG O2 Saturation 98 % (95-98) 09/09/17 17:06 PT/INR, D-dimer PT 12.0 Seconds (9.4-12.1) 09/09/17 17:07 Consult Discharge Plan - Plan Referrals: Abdi Soto, HARDWARE PRESS OPERATOR [Primary Care Provider] - Palliative Quality Palliative Quality: Screen for Code Status: Yes, Screen for Goals of Care: NA ( Awaiting meeting with POA), Screen for Pain: Yes, If Pain Regimen Started, Initiate Bowel Regimen: NA, Screen for Nausea/Vomitting: Yes
--- NOTE | 2017-09-11 13:12 | Neurology Progress Note ---
Date of Encounter: 09/11/17 Time of Encounter: 13:10 Assessment and Plan (1) CVA (cerebral vascular accident) Current Visit: No Status: Acute Patient has developed large hemispheric infarct involving left ICA territory, with presence of mild mass effect and midline shift. Cause of the stroke is most likely thrombotic due to severe ICA/CCA stenosis on the left side, and anther possibility would be emboli event to the left ICA due to history of atrial fibrillation but this appears to be less likely due to that fact that the patient has been on treated with lovenox for atrital fibrillation Course of disease: CVA probably occurred at least one week ago when he developed obtundation in his mental status. CT of head showed clearly marked hypointensity supporting this is a late onset event of CVA. 1. In terms of the use of anticoagulation treatment for atrial fibrillation, due to the fact that the stroke size is large and there is still mass effect and midline shift, i would recommend that the anticoagulation be started 3 weeks after onset of CVA. Considering his CVA occurred at least one week ago, i would suggest that anticoagulation can be restarted two weeks from now, and prior to initiation of anticoagulation therapy, CT of head should be ordered to make sure there is no evidence of cerebral hemorrhage or hemorrhagic transformation and the CT of head can be ordered and reviewed at nursing facility and by attending physician there. 2. If contraindications for anticoagulatio for atrial fibrillation exist then aspirin 325mg can be used as a substitute. Aspirin can be started as early as one week from now. he needs at least aspirin due to severe critical ICA stenosis bilaterally and he is not a surgical candidate for carotid endarterectomy 3. Continue DVT prophylaxis in the form of heparine SC. 4. In terms of neurological prognosis, patient may survive such large hemispheric stroke and he is likely to be with right hemiparalysis and and aphasia. His mental status is stable. At this time will sign off, please call if any questions. Qualifiers: CVA mechanism: stenosis Precerebral and cerebral artery: carotid artery Laterality of affected vessel: left Qualified Code(s): I63.232 - Cerebral infarction due to unspecified occlusion or stenosis of left carotid arteries Subjective Principal diagnosis: CVA Interval history: Patient seen and examined. He is doing the same and his mental status appears slightly improving. he is wide awake and mute but follows simple commands. He is able to withdrawal the right leg but the right arm and hand is paralysed. Patient is currently on DVT prophylaxis with heparin SC 500units q8 hours. His lovenox was discontinued and this was used due to history of atrial fibrillation. His aspirin is also held due to rather large hemispheric infarct on the left side. No signs of active bleeding at this time Objective - Constitutional Vitals: Temp Pulse Resp BP Pulse Ox 97.4 F L 89 16 122/62 98 09/11/17 11:40 09/11/17 11:40 09/11/17 11:40 09/11/17 11:40 09/11/17 11:40 General appearance: Present: cachectic - Neurological Exam Sensorimotor examination: Present: intact (Difficult to assess due to aphsia. Withdrawal to pain to right feet. ) Motor Examination: Present: other (Right arm is spastically paralysed. Able to withdrawal to pain to his right leg and foot. Able to intake man to the left hand) Sensation intact: Present: intact (Unable to assess due to aphasia) Posture: Present: other (None) Reflex and gait examination: other (Gait not assessed. right hemispasticity noted. Right arm contracted at the elbow) Reflexes: Biceps: 2+, Triceps: 2+, Brachioradialis: 2+, Patella: 2+, Achilles: 2 + Mental Status Examination: Present: awake, alert, opens eyes to voice, makes eye contact, follows simple commands, expressive aphasia Cranial nerve examination: Present: PERRL, EOMI (Patient has gaze palsy to the left side. ), visual pack intact (Unable to assess due to aphasia), corneal reflexes brisk symmetrically, sensory to face intact (Unable to assess), mastication intact (Unable to assess), no facial asymmetry is present, hearing is intact symmetrically (Unable to assess) Results - Laboratory Findings CBC and BMP: 09/11/17 04:44 09/11/17 04:44 Abnormal lab findings: Abnormal lab results RBC 3.45 M/mcL (4.19-5.50) L 09/11/17 04:44 Hgb 11.3 g/dL (12.9-16.9) L 09/11/17 04:44 Hct 35.0 % (37.5-50.1) L 09/11/17 04:44 MCV 101.4 fL (83.0-100.0) H 09/11/17 04:44 Lymphocytes # 0.5 K/mcL (0.6-4.6) L 09/11/17 04:44 APTT 22.3 Seconds (26.0-36.0) L 09/09/17 17:07 ABG pH 7.47 pH Units (7.32-7.45) H 09/09/17 17:06 ABG HCO3 30 mEq/L (21-27) H 09/09/17 17:06 ABG Total CO2 31 mEq/L (20-26) H 09/09/17 17:06 ABG Base Excess 5 mEq/L (-2 to 3) H 09/09/17 17:06 Carbon Dioxide 30 mEq/L (23-29) H 09/11/17 04:44 Creatinine 0.50 mg/dL (0.70-1.30) L 09/11/17 04:44 BUN/Creatinine Ratio 46 (6-26) H 09/11/17 04:44 Calcium 8.5 mg/dL (8.6-10.3) L 09/11/17 04:44 AST 42 Units/L (13-39) H 09/09/17 17:07 Alkaline Phosphatase 129 Units/L (34-104) H 09/09/17 17:07 Troponin I 0.05 ng/mL (< 0.04) H* 09/10/17 05:00 Albumin 3.2 g/dL (3.5-5.7) L 09/09/17 17:07 Globulin 3.6 g/dL (2.4-3.5) H 09/09/17 17:07 Albumin/Globulin Ratio 0.9 (1.1-2.2) L 09/09/17 17:07 Prealbumin 14.1 mg/dL (17.0-34.0) L 09/11/17 04:44 TSH 6.532 mcIU/mL (0.340-5.600) H 09/10/17 04:00 Urine Microscopic RBC 3-5 per hpf (0-3) H 09/09/17 17:30 Ur Squamous Epith Cells Moderate per lpf (None-Few) H 09/09/17 17:30 Staphylococcus sp PCR DETECTED (Not Detect) A 09/09/17 17:07 mecA-Methicil Res Gene DETECTED (Not Detect) A 09/09/17 17:07 Consult Discharge Plan - Plan Referrals: Abdi Soto, [employer]ER [Primary Care Provider] -
[2017-09-11] MEDS ORDERED: Clinimix E 5%-20% SOLUTION 2,000 ML with MVI, adult with vitamin K 10 ML IVC SCH (17:00)
[2017-09-12 04:42] LABS: BUN/Creatinine Ratio 46 (6-26); Blood Urea Nitrogen 22 mg/dL (8-23); Calcium 8.4 mg/dL (8.6-10.3); Carbon Dioxide 29 mEq/L (23-29); Chloride 101 mEq/L (98-107); Glucose 126 mg/dL (70-105); Osmolality,Calculated 289 (280-300); Potassium 3.7 mEq/L (3.5-5.1); Sodium 137 mEq/L (136-145); eGFR For African Americans > 60 (> 60); eGFR For Non-African Americans > 60 (> 60)
[2017-09-12] MEDS: *HR* Heparin 5,000 UNIT/ML VIAL SQ SCH ×2 (05:15→14:58)
[2017-09-12] MEDS: Levothyroxine Sodium 100 MCG VIAL IVP SCH (09:13)
[2017-09-12] MEDS: *HR* Metoprolol 5 MG/5 ML VIAL IVP SCH ×2 (09:16→22:16)
[2017-09-12] MEDS: Pantoprazole 40 MG VIAL IVP SCH (09:16)
--- NOTE | 2017-09-12 10:45 | Internal Med Progress Note ---
Date of Encounter: 09/12/17 Time of Encounter: 10:45 - Assessment and plan (1) Hypothyroid Current Visit: No Status: Chronic Qualifiers: Hypothyroidism type: unspecified Qualified Code(s): E03.9 - Hypothyroidism , unspecified (2) CVA (cerebral vascular accident) Current Visit: No Status: Acute Assessment and plan: Appreciate neurology input, close monitoring the patient condition, we will consult physical therapy and occupational therapy Qualifiers: CVA mechanism: stenosis Precerebral and cerebral artery: carotid artery Laterality of affected vessel: left Qualified Code(s): I63.232 - Cerebral infarction due to unspecified occlusion or stenosis of left carotid arteries (3) DVT prophylaxis Current Visit: No Status: Acute (4) Carotid stenosis Current Visit: No Status: Acute Assessment and plan: Patient is not candidate for any surgery Qualifiers: Laterality: bilateral Qualified Code(s): I65.23 - Occlusion and stenosis of bilateral carotid arteries (5) History of laryngeal cancer Current Visit: No Status: Acute Assessment and plan: A status post in the past currently does not have tracheostomy with his excessive secretion, may consider placing tracheostomy back (6) Elevated troponin Current Visit: Yes Status: Acute Assessment and plan: Possible secondary to CVA, not candidate for aspirin or anticoagulant now (7) Malnutrition following gastrointestinal surgery Current Visit: Yes Status: Acute Assessment and plan: Surgery team with patient malnutrition poor healing of his ostomy wound, recommended to avoid using nasogastric tube for tube feeding, close monitoring patient condition. Discussed with dietitian continue TBN, check electrolytes, patient considered very high mortality rate, I agree life expectancy will be less than 6 months, agree with consulting palliative care. Replace electrolyte per protocol (8) Encephalopathy Current Visit: Yes Status: Acute Assessment and plan: Possible tachycardia secondary to CVA in addition to severe malnutrition will add thiamine bolus dose, close monitoring of electrolytes - Time Spent With Patient Total time spent is greater than 50% in coordination of care (as documented) at patient's floor/unit and/or counseling patient: Greater than 35 minutes - Subjective Interval history: Patient is nonverbal, he is lethargic, cannot obtain any history from the patient - Constitutional Vitals: Temp Pulse Resp BP Pulse Ox 97.5 F L 108 18 133/82 99 09/12/17 07:29 09/12/17 07:29 09/12/17 07:29 09/12/17 07:29 09/12/17 09:25 General appearance: Present: no acute distress - Head Head exam: Present: atraumatic, normocephalic - Neck Neck exam general surgery: Present: supple, trachea midline (Opening for previous tracheostomy is present). Absent: lymphadenopathy - Respiratory Respiratory exam: Present: decreased breath sounds, prolonged expiratory phase, rales, wheezes (Diffuse coarse wheezing and crackles bilateral lung). Absent: rhonchi - Cardiovascular Cardiovascular exam: Present: irregular rhythm, +S1, +S2. Absent: diastolic murmur, gallop, rubs, systolic murmur - GI/Abdominal GI/Abdominal exam: Present: normal bowel sounds, soft, no peritoneal signs. Absent: distended, tenderness - Extremities Exam Extremities exam: Present: warm. Absent: calf tenderness, cyanotic, pedal edema Internal Medicine: Result - Labs CBC & Chem 7: 09/11/17 04:44 09/12/17 04:00 Labs: BMP 09/12/17 04:00 Sodium 137 Potassium 3.7 Chloride 101 Carbon Dioxide 29 BUN 22 Creatinine 0.48 L Glucose 126 H Calcium 8.4 L - ABG Interpretation ABG results: ABG ABG pH 7.47 pH Units (7.32-7.45) H 09/09/17 17:06 ABG pCO2 41 mmHg (35-45) 09/09/17 17:06 ABG pO2 101 mmHg (85-104) 09/09/17 17:06 ABG O2 Saturation 98 % (95-98) 09/09/17 17:06 PT/INR, D-dimer PT 12.0 Seconds (9.4-12.1) 09/09/17 17:07 Consult Discharge Plan - Plan Referrals: Abdi Soto, W[employer] STITCHER MACHINE [Primary Care Provider] -
[2017-09-12] MEDS ORDERED: Potassium Phosphate 44 MEQ in 0.9 % Sodium Chloride 250 ML IVPB ONE (11:01)
[2017-09-12] MEDS ORDERED: Thiamine (B-1) 500 MG in D5% in Water 50 ML IVPB SCH (11:15)
[2017-09-12] MEDS ORDERED: MORPHINE SUL Oral CONC 10 MG/0.5 ML ORAL.SYG SL PRN (11:19)
[2017-09-12] MEDS ORDERED: *HR* LORazepam Oral Conc 2 MG/ML SL PRN (11:20)
[2017-09-12] MEDS ORDERED: Scopolamine Patch 1.5 MG PATCH.TD72 TD SCH (11:30)
--- NOTE | 2017-09-12 12:39 | Discharge Summary ---
Orders not resulted at time of discharge: Pending orders 09/11/17 09:23 Culture,Blood [BC] Stat 09/12/17 04:00 Basic Metabolic Panel AM 0400 Magnesium Routine Phosphorous Routine 09/13/17 04:00 Magnesium AM 0400 Phosphorous AM 0400 Date of Encounter: 09/13/17 Time of Encounter: 13:30 - Discharge Diagnosis (1) Hypothyroid Priority: Secondary Status: Chronic Qualifiers: Hypothyroidism type: unspecified Qualified Code(s): E03.9 - Hypothyroidism , unspecified (2) CVA (cerebral vascular accident) Priority: Primary Status: Acute Qualifiers: CVA mechanism: stenosis Precerebral and cerebral artery: carotid artery Laterality of affected vessel: left Qualified Code(s): I63.232 - Cerebral infarction due to unspecified occlusion or stenosis of left carotid arteries (3) DVT prophylaxis Priority: Secondary Status: Acute (4) Carotid stenosis Priority: Secondary Status: Acute Qualifiers: Laterality: bilateral Qualified Code(s): I65.23 - Occlusion and stenosis of bilateral carotid arteries (5) History of laryngeal cancer Priority: Secondary Status: Acute (6) Elevated troponin Priority: Secondary Status: Acute (7) Malnutrition following gastrointestinal surgery Priority: Secondary Status: Acute (8) Encephalopathy Priority: Primary Status: Acute Hospital course: 77-year-old male with past medical history of embolic stroke, history of critical right internal carotid artery stenosis and left common carotid artery stenosis history of atrial fibrillation, history of laryngeal cancer status post reconstruction and ostomy of the neck and peg tube placement complicated with fistula, patient is currently not candidate for repair she is poor nutritional status, patient had severe dysphagia, patient was chronically on TPN for his severe malnutrition. Patient had follow-up with surgery team at, patient was found obtunded 1 week ago on further follow up. 4 days ago patient condition continued to get worse and he was more obtunded patient was transferred to emergency room . Patient was unable to follow directions due AMS for the ED to complete an NIHSS. Patient's CT head showed: "Evidence of a late subacute infarct involving the left cerebral hemisphere, with mild mass effect, and without convincing evidence of hemorrhagic conversion." They estimated stroke may be a week old. Patient is aphasic at baseline but able to follow commands. Neurology was consulted and recommended to hold on anticoagulant as' s point at the risk of hemorrhagic stroke, surgery recommended to hold onto feeding because nonhealing fistula, recommended to continue TPN. Long discussion done between palliative care and power of workers compensation attorney, discussed about patient condition and is comorbidity multisystem failure and required to of life and placed on the patient wishes not to continue treatment at this point based on power of workers compensation attorney report. Today I discussed again with the patient about hospice and he was agreeable he was shaking his head yes. Hospice team came and evaluated the patient accepted patient. Patient was transferred to [facility] with hospice for comfort care Discharge discussed with: patient - Time Spent with Patient Total time spent providing and/or coordinating discharge services: Less than 30 minutes - Discharge Medications Prescriptions: LORazepam Oral Conc [Ativan Oral Conc] 0.5 mg SL Q6HR PRN 10 Days #20 mls PRN Reason: anxiety/restlessness LORazepam Oral Conc [Ativan Oral Conc] 0.5 - 1 mg PO Q4H PRN 7 Days #30 mls PRN Reason: anxiety/restlessness Morphine Oral CONC [Roxanol] 0.5 ml PO Q3-6H PRN 10 Days #30 mls PRN Reason: Pain MORPHINE SUL Oral CONC [Roxanol Oral Conc] 5 - 10 mg PO Q1H PRN 7 Days #30 oral.syg PRN Reason: pain/dyspnea Scopolamine Patch [Transderm-Scop] 1.5 mg TD Q72H #7 patch.td72 Home Medications: Ondansetron ODT [Zofran ODT] 4 mg SL Q6HR 08/06/17 [History] Levothyroxine Sodium [Synthroid] 75 mcg IV DAILY 09/10/17 [History] Acetaminophen [Tylenol Susp] 650 mg GTUBE Q6HR PRN ud.liq 09/12/17 [Rx] LORazepam Oral Conc [Ativan Oral Conc] 0.5 - 1 mg PO Q4H PRN 7 Days #30 mls [Rx] LORazepam Oral Conc [Ativan Oral Conc] 0.5 mg SL Q6HR PRN 10 Days #20 mls [Rx] MORPHINE SUL Oral CONC [Roxanol Oral Conc] 5 - 10 mg PO Q1H PRN 7 Days #30 oral.syg 09/12/17 [Rx] Morphine Oral CONC [Roxanol] 0.5 ml PO Q3-6H PRN 10 Days #30 mls 09/12/17 [Rx] Scopolamine Patch [Transderm-Scop] 1.5 mg TD Q72H patch.td72 09/12/17 [Rx] Scopolamine Patch [Transderm-Scop] 1.5 mg TD Q72H #7 patch.td72 09/12/17 [Rx] Allergies/Adverse Reactions: 3 Allergy/AdvReac Type Severity Reaction Status Date / Time No Known Allergies Allergy Verified 07/29/17 14:29 Date of admission: 09/09/17 20:48 Primary care physician: Abdi Soto CNP Consults: 09/10/17 10:00 Consult to Supercalender Operator Helper [CONS] Routine Reason for SW Consult: patient from [facility] 09/11/17 08:58 Consult to Palliative Care [CONS] Routine Comment: Consulting Provider: Palliative Care Trcai Reason for Consult: DNRCCA, CHRONIC TRACH STOMA, UNABLE TO TAKE FEEDINGS VIA PEG, SUGGESTIONS FOR FURTHER CARE Call Completed: No 09/11/17 13:10 Consult to Physical Therapy [CONS] Routine Comment: Evaluate, develop and implement POC Reason for Consult: CVA WORKUP Does patient have active BEDREST order?: No Is patient medically & hemodynamically stable?: Yes Patient assessed for mobility or mobilized this visit?: No 09/12/17 11:25 Consult to Cardiology [CONS] Routine Comment: Consulting Provider: Pj Aviles Reason for Consult: deactivation of aicd Time Notified: 11:20 Call Completed: Yes Discharging clinician: Amelia Szymanski Anticipated date of discharge: 09/13/17 - Constitutional Vitals: Temp Pulse Resp BP Pulse Ox 97.5 F L 108 18 133/82 99 09/12/17 07:29 09/12/17 07:29 09/12/17 07:29 09/12/17 07:29 09/12/17 09:25 General appearance: Present: no acute distress - Patient Status Disposition: Hospice - Medical Facility Condition: Critical Functional capacity at discharge: bed bound Overall status at discharge: patient is not back to baseline - Discharge Instructions Follow Up With: Abdi Soto CNP [Primary Care Provider] - - Diet and Activity Activity: wear oxygen at all times
--- NOTE | 2017-09-12 13:26 | Event Note ---
Date of Encounter: 09/12/17 Time of Encounter: 13:24 - Cardiology Event Note Case discussed with Ashly Perry. She personally spoke with HAROON this AM. Pt is now a DNR CC and wish is to turn off tachy therapies on ICD--[employer]. Zonia Quintero in cardiology office made aware. She will be over this afternoon to complete this.
--- NOTE | 2017-09-12 13:56 | Palliative Progress Note ---
Date of Encounter: 09/12/17 Time of Encounter: 11:45 - Assessment and plan (1) Debility Current Visit: Yes Status: Acute (2) Counseling regarding advanced care planning and goals of care Current Visit: Yes Status: Acute Assessment and plan: Long conference with pt OZZYMekhi, (friend James and his ), and spoke also via telephone with pt sister, Herlinda and her daughter from [place]. Discussed current clinical status and goals of care. POA as well as family state that Raul would not want to continue aggressive care at the current state he is in , and made several comments about how he would not want to just exist if he couldn't walk/talk or having productive life. They made decision to focus on comfort care only and transitioned to DNRCC. Do not want to continue with artificial nutrition. Also discussed deactivation of AICD, and informed on this process. D/[facility] - they have contract with [facility], and made referral at family's request. [place] here on site to speak with pt/family. Contacted Cardiology and spoke with Jan Carreon NP regarding deactivating AICD and tech will be here this afternoon to turn off device. 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 Current Visit: No Status: Acute (4) Severe protein-calorie malnutrition Current Visit: No Status: Acute (5) CVA (cerebral vascular accident) Current Visit: No Status: Acute Qualifiers: CVA mechanism: stenosis Precerebral and cerebral artery: carotid artery Laterality of affected vessel: left Qualified Code(s): I63.232 - Cerebral infarction due to unspecified occlusion or stenosis of left carotid arteries (6) Head and neck cancer Current Visit: No Status: Chronic - Time Spent With Patient Total time spent is greater than 50% in coordination of care (as documented) at patient's floor/unit and/or counseling patient: - Subjective Interval history: Patient appears more alert today, does answer some yes/no questions. Moving left arm. Rt sided remains flaccid. Denies pain or discomfort. - Constitutional Vitals: Abnormal lab results RBC 3.45 M/mcL (4.19-5.50) L 09/11/17 04:44 Hgb 11.3 g/dL (12.9-16.9) L 09/11/17 04:44 Hct 35.0 % (37.5-50.1) L 09/11/17 04:44 MCV 101.4 fL (83.0-100.0) H 09/11/17 04:44 Lymphocytes # 0.5 K/mcL (0.6-4.6) L 09/11/17 04:44 APTT 22.3 Seconds (26.0-36.0) L 09/09/17 17:07 ABG pH 7.47 pH Units (7.32-7.45) H 09/09/17 17:06 ABG HCO3 30 mEq/L (21-27) H 09/09/17 17:06 ABG Total CO2 31 mEq/L (20-26) H 09/09/17 17:06 ABG Base Excess 5 mEq/L (-2 to 3) H 09/09/17 17:06 Creatinine 0.48 mg/dL (0.70-1.30) L 09/12/17 04:00 BUN/Creatinine Ratio 46 (6-26) H 09/12/17 04:00 Glucose 126 mg/dL (70-105) H 09/12/17 04:00 POC Glucose 148 mg/dL (70-99) H 09/11/17 17:26 Calcium 8.4 mg/dL (8.6-10.3) L 09/12/17 04:00 AST 42 Units/L (13-39) H 09/09/17 17:07 Alkaline Phosphatase 129 Units/L (34-104) H 09/09/17 17:07 Troponin I 0.05 ng/mL (< 0.04) H* 09/10/17 05:00 Albumin 3.2 g/dL (3.5-5.7) L 09/09/17 17:07 Globulin 3.6 g/dL (2.4-3.5) H 09/09/17 17:07 Albumin/Globulin Ratio 0.9 (1.1-2.2) L 09/09/17 17:07 Prealbumin 14.1 mg/dL (17.0-34.0) L 09/11/17 04:44 TSH 6.532 mcIU/mL (0.340-5.600) H 09/10/17 04:00 Urine Microscopic RBC 3-5 per hpf (0-3) H 09/09/17 17:30 Ur Squamous Epith Cells Moderate per lpf (None-Few) H 09/09/17 17:30 Staphylococcus sp PCR DETECTED (Not Detect) A 09/09/17 17:07 mecA-Methicil Res Gene DETECTED (Not Detect) A 09/09/17 17:07 General appearance: Present: no acute distress - Respiratory Additional comments: Copious lt green secretions from trach stoma. Scattered rhonchi anterior chest. - Cardiovascular Cardiovascular exam: Present: +S1, +S2 - GI/Abdominal GI/Abdominal exam: Present: normal bowel sounds, soft Additional comments: Peg tube clamped with dressing to site - Extremities Exam Extremities exam: Present: normal capillary refill, normal inspection - Neurological Exam Neurological exam: Present: alert Additional comments: following simple command with left arm/leg. - Psychiatric Psychiatric exam: Present: normal affect, normal mood - Skin Skin exam: Present: dry, pallor, warm Palliative Quality Palliative Quality: Screen for Code Status: Yes, Screen for Goals of Care: NA ( Awaiting meeting with POA), Screen for Pain: Yes, If Pain Regimen Started, Initiate Bowel Regimen: NA, Screen for Nausea/Vomitting: Yes Code Status: 09/12/17 11:18 DNR [Resuscitation Status: Active] [RES] Routine Comment: Resuscitation Status: DNR-Comfort Care - Labs CBC & Chem 7: 09/11/17 04:44 09/12/17 04:00 Labs: Laboratory Results - last 24 hr 09/11/17 09/11/17 09/12/17 11:39 17:26 04:00 Sodium 137 Potassium 3.7 Chloride 101 Carbon Dioxide 29 BUN 22 Creatinine 0.48 L Est GFR ( Amer) > 60 Est GFR (Non-Af Amer) > 60 BUN/Creatinine Ratio 46 H Glucose 126 H POC Glucose 149 H 148 H Calculated Osmolality 289 Calcium 8.4 L - ABG Interpretation ABG results: ABG ABG pH 7.47 pH Units (7.32-7.45) H 09/09/17 17:06 ABG pCO2 41 mmHg (35-45) 09/09/17 17:06 ABG pO2 101 mmHg (85-104) 09/09/17 17:06 ABG O2 Saturation 98 % (95-98) 09/09/17 17:06 PT/INR, D-dimer PT 12.0 Seconds (9.4-12.1) 09/09/17 17:07 Consult Discharge Plan - Plan Referrals: Abdi Soto, SUNDAY [Primary Care Provider] - Prescriptions: LORazepam Oral Conc [Ativan Oral Conc] 0.5 mg SL Q6HR PRN 10 Days #20 mls PRN Reason: anxiety/restlessness Morphine Oral CONC [Roxanol] 0.5 ml PO Q3-6H PRN 10 Days #30 mls PRN Reason: Pain
[2017-09-12] MEDS: Ipratropium/Albuterol Neb 3 ML IH SCH ×3 (15:24→20:37)
[2017-09-12 15:58] LABS: Magnesium 1.9 mg/dL (1.6-2.6); Phosphorous 3.5 mg/dL (2.7-4.5)
[2017-09-13] MEDS: Ipratropium/Albuterol Neb 3 ML IH SCH ×4 (00:22→11:20)
[2017-09-13 06:44] LABS: Magnesium 1.8 mg/dL (1.6-2.6); Phosphorous 4.4 mg/dL (2.7-4.5)
[2017-09-13] MEDS: *HR* Metoprolol 5 MG/5 ML VIAL IVP SCH (09:03)
[2017-09-13 10:51] VITALS: BP 96/56
--- NOTE | 2017-09-13 11:19 | Event Note ---
Date of Encounter: 09/13/17 Time of Encounter: 11:17 - Cardiology Event Note Called [employer] Rep this AM. He is going to attempt to come deactivate tachy therapies on pt's device today. If unable to get here today, recommends d/c to ECF with magnet on ICD and they can arrange to come to ECF Friday. Discussed with RN. I should have a definite answer from device rep ~noon today. I placed magnet over pt's device.
--- NOTE | 2017-09-13 14:20 | Event Note ---
Date of Encounter: 09/13/17 Time of Encounter: 14:18 Discharge was canceled yesterday, awaiting cardiology team for deactivation of ICD, patient seen and examined today he is comfortable, okay to discharge to hospice, please see discharge summary for further details
[2017-09-13] MEDS ORDERED: *HR* Metoprolol 5 MG/5 ML VIAL IVP SCH (21:18)
== END 2017-09-13 15:31 | disposition hospice, inpatient (51) | DRG 64 ==
LOC: 2NENU 15:36 → EMEROO 15:36 → OBSVTOIN 20:48 → 2NENU 21:18
PROVIDERS: ADMIT Internal Medicine; ATTEND Family Medicine